=== PATIENT | female | born 1965 | race Caucasian/White ===

== ENCOUNTER 2020-01-27 11:07 | Outpatient (CLI) | payer OTHER, SELFPAY | END 2020-01-27 11:08 | disposition home or self-care (01) | LOC: SLEEP 01-28 11:08 | PROVIDERS: PCP Family Medicine; Visit Provider Physician Assistant Medical | DX: R06.83 Snoring (principal); R53.83 Other fatigue | CPT/HCPCS: G0399 ==

== ENCOUNTER 2020-02-21 12:32 | Emergency (ER) | payer OTHER, SELFPAY ==
[2020-02-21 12:49] VITALS: BP 115/72; PULSE 92; RESP 16; TEMP 36.9; O2SAT 95; BMI 40.0
[2020-02-21 13:35] VITALS: BP 128/85; PULSE 94; RESP 18; O2SAT 94
--- NOTE | 2020-02-21 13:41 | XRR_ITS ---
PROCEDURE INFORMATION: Exam: XR Chest, 1 View Exam date and time: 02/21/2020 1:42 PM Age: 54 years old Clinical indication: Cough and fever and shortness of breath; Patient HX: SOB, fever, cough with nausea, vomiting; Additional info: Dyspnea/cough TECHNIQUE: Imaging protocol: XR of the chest Views: 1 view. COMPARISON: CR Chest 1 [place] [id number] 01/17/2019 12:39 AM FINDINGS: Lungs: No focal peripheral lung consolidation, air bronchogram formation, or silhouette sign. Pleural space: No pleural effusion or pneumothorax. Heart/Mediastinum: The cardiac silhouette is not enlarged. The mediastinal contours are normal. Bones/joints: Prior right rotator cuff surgery with resection of the distal clavicle and multiple anchors in the humeral head. XR/XR chest 1V portable [id number] IMPRESSION: No pneumonia.
--- NOTE | 2020-02-21 13:41 | ECG_ITS ---
[facility] Test Date: 2020-02-21 Pat Name: Elizabeth Bernard Department: Room: Gender: Female Health Care Manager: : 1965 Requested By: George Thomas Order Number: [id number] Alonso MD: Nicole Chen M.D. Measurements Intervals [place] Rate: 78 P: 32 AL: 127 QRS: -14 QRSD: 90 T: 57 QT: 349 QTc: 399 Interpretive Statements SINUS RHYTHM Compared to ECG 01/17/2019 05:54:38 No significant changes Electronically Signed On 02-22-2020 17:15:45 CDT by Nicole Chen M.D. [id number]
--- NOTE | 2020-02-21 14:09 | W.ED.URI ---
HPI - URI/Sore Throat General: Chief Complaint: Upper Respiratory Infection Stated Complaint: covid symptoms Time Seen by Provider: 02/21/20 13:32 History of Present Illness: HPI Narrative: 54-year-old female with a history of mild asthma only uses albuterol was exposed to COVID about 9 to 10 days ago at a several people there has since turned positive. 2 to 3 days ago she had a very severe cough to the point cause rib pain, her cough was nonproductive. Her cough is since improved she still having some GI symptoms goes, nausea and severe diarrhea. She has noticed particular worsening of her wheezing or use of albuterol. She has had some fever at home. MD elicited complaint: fever and cough Pertinent past history: asthma Onset (ago): day(s) Consistency: constant and improved Severity: moderate Able to tolerate fluids by mouth: Yes Exacerbating factors: nothing and exertion Relieving factors: nothing Context: sick contacts Associated symptoms: Reports congestion, cough, diarrhea, fever(s), myalgias, nasal congestion, nausea, rhinorrhea and vomiting; Deny abdominal pain, change in voice, chills, chest pain, short of breath, sinus pain, stiffness or sore throat Treatments prior to arrival: none Review of Systems Const: Reports: fever(s); Denies: chills ENMT: Reports: nasal congestion; Denies: sinus pain Card: Denies: chest pain Resp: Reports: non-productive cough; Denies: dyspnea or productive cough GI: Reports: nausea, vomiting and diarrhea; Denies: abdominal pain : Denies: flank pain, difficulty voiding, dysuria, urinary frequency or urinary urgency Skin/Breast: Denies: rash or pruritus [facility] ED PFSH: Medical History (Updated 02/21/20 @ 15:08 by George Arceo DO) Major depressive disorder, recurrent, moderate Surgical History (Updated 02/21/20 @ 14:13 by George Arceo DO) H/O rotator cuff surgery H/O tubal ligation H/O: hysterectomy Physical Exam Const: COMMON NORMALS: no acute distress GENERAL APPEARANCE: cooperative and comfortable ORIENTATION/CONSCIOUSNESS: Yes awake, Yes oriented to person, Yes oriented to place and Yes oriented to time HENMT: COMMON NORMALS: normocephalic, atraumatic, hearing grossly normal bilaterally, external ears normal, EAC's normal, TM's normal bilaterally, Normal nasal mucous membranes and turbinates present, moist oral mucous membranes and oropharynx normal HEAD & SCALP: normocephalic and atraumatic NOSE: Normal nasal mucous membranes and turbinates present EXTERNAL EAR: Yes external ears normal EXTERNAL AUDITORY CANAL: EAC's normal TYMPANIC MEMBRANE: TM's normal bilaterally Eye: COMMON NORMALS: Equal, round and reactive pupils present, EOMs intact bilaterally, conjunctivae normal and no scleral icterus CONJUNCTIVA: Yes conjunctivae normal PUPIL: Yes Equal, round and reactive pupils present Neck/C-Spine: COMMON NORMALS: full ROM, no lymphadenopathy, supple and no JVD Lymph: LYMPHATIC: no lymphadenopathy noted and no lymphedema noted Resp: COMMON NORMALS: normal respiratory effort, No retractions, No use of accessory muscles and clear to auscultation bilaterally AUSCULTATION: clear to auscultation bilaterally Cardio: COMMON NORMALS: no JVD, regular rate, regular rhythm and No murmurs present (Cardio) RATE: regular rate RHYTHM: regular rhythm GI: COMMON NORMALS: Soft to palpation and No hepatosplenomegaly present AUSCULTATION: Yes normoactive bowel sounds PALPATION: Yes Soft to palpation, No Tenderness to palpation present (GI), No Guarding due to palpation present (GI) and Yes No hepatosplenomegaly present Extremity: COMMON NORMALS: normal to inspection, capillary refill normal, no clubbing, cyanosis or edema, no calf tenderness and no pedal edema Neuro: SENSORIUM/ORIENTATION: Yes oriented to person, Yes oriented to place and Yes oriented to time Skin: COMMON NORMALS: no rashes or lesions noted GENERAL SKIN EXAM: no rashes or lesions noted Course Vital Signs: Vital signs: Vital Signs Temperature 98.5 F 02/21/20 12:49 Pulse Rate 78 02/21/20 15:28 Respiratory Rate 18 02/21/20 15:28 Blood Pressure 136/73 02/21/20 15:28 Pulse Oximetry 93 02/21/20 15:28 MDM - URI/Sore Throat MDM Narrative: Medical decision making narrative: Patient is doing well vital signs are normal. I strongly suspect she does have COVID-19. For now we will discharge home and treat at home is a walking well. Use albuterol as needed should continue to quarantine herself until the results are back. If has any worsening difficulty with breathing return immediately to the emergency room Lab Data: Labs: Lab Results 02/21/20 02/21/20 02/21/20 Range/Units 13:39 13:39 14:28 WBC 5.1 (4.0-10.0) 10^3/ uL RBC 4.77 (4.1-5.3) 10^6/u L Hgb 14.2 (11.5-15.3) g/dL Hct 44.8 (37.0-47.0) % MCV 93.9 (81-99) fL MCH 29.8 (28.0-34.0) pg MCHC 31.7 (30.0-36.0) g/dL RDW 13.5 (12.1-15.1) % Plt Count 248 (130-400) 10^3/c mm MPV 10.2 (7.4-10.4) fL Neut % (Auto) 57.9 % Lymph % (Auto) 27.5 % [place] % (Auto) 12.4 % Eos % (Auto) 1.8 % Baso % (Auto) 0.2 % Neut # (Auto) 2.95 (1.8-7.7) 10^3/u L Lymph # (Auto) 1.4 (0.8-4.8) 10^3/u L [place] # (Auto) 0.6 (0.2-0.9) 10^3/u L Eos # (Auto) 0.1 (0.0-0.8) 10^3/u L Baso # (Auto) 0.0 (0.0-0.1) 10^3/u L Nucleated RBC % (a uto) 0 % Nucleated RBCs # 0.0 /100WBC Sodium 138 (136-145) mmol/L Potassium 4.3 (3.5-5.1) mmol/L Chloride 100 (98-107) mmol/L Carbon Dioxide 26 (22-29) mmol/L Anion Gap 16.3 (5-19) BUN 15 (6-20) mg/dL Creatinine 0.8 (0.5-0.9) mg/dL GFR Calculation 74.7 L (90-130) mL/min Glucose 120 H (65-115) mg/dL Calculated Osmolal ity 283 L (285-295) mOsm/k g Calcium 8.8 (8.5-10.5) mg/dL Total Bilirubin 0.2 (0.15-1.2) mg/dL AST 27 (0-32) U/L ALT 44 H (0-33) U/L Alkaline Phosphata se 61 (35-105) IU/L Total Protein 7.3 (6.6-8.7) g/dL Albumin 4.4 (3.5-5.2) g/dL Globulin 2.9 (1.3-4.6) g/dL Urine Color Yellow (Yellow) Urine Appearance Hazy A (CLEAR) Urine pH 5.0 (5-7) Ur Specific [place] y 1.025 (1.005-1.030) Urine Protein Neg (Negative) Urine Glucose (UA) Norm (Normal) Urine Ketones 1+ H (Negative) Urine Blood Neg (Negative) Urine Nitrate Negative (Negative) Urine Bilirubin Neg (NEGATIVE) Urine Urobilinogen Norm (Negative) mg/dL Ur Leukocyte Danae ase 1+ H (Negative) Urine RBC 0-4 H (0-2) /hpf Urine WBC 0-4 H (0-5) /hpf Ur Squamous Epith Cells 5-10 H (0-5) Amorphous Sediment 2+ Urine Bacteria 1+ H (NONE) Urine Mucus Trace Discharge Plan Discharge Patient Disposition: Home Clinical Impression: Suspected COVID-19 virus infection Condition: Stable Prescriptions: No Action aripiprazole [Abilify] 10 mg tablet 10 mg PO DAILY Qty: 30 RF: 3 ezetimibe 10 mg tablet 10 mg PO BEDTIME RF: 0 levocetirizine 5 mg tablet 10 mg PO BEDTIME RF: 0 albuterol sulfate 90 mcg/actuation aero powdr breath act w/sensor 2 inh INHALATION Q4H PRN (Reason: shortness of breath or wheezing) RF: 0 potassium chloride [Klor-Con 10] 10 mEq tablet extended release 10 meq PO DAILY RF: 0 levothyroxine 100 mcg capsule 100 mcg PO DAILY RF: 0 diclofenac sodium 75 mg tablet,delayed release (DR/EC) 75 mg PO BID RF: 0 lisinopril 5 mg tablet 5 mg PO DAILY RF: 0 Zyrtec 10 mg Tablet 10 mg PO BEDTIME RF: 0 Singulair 10 mg Tablet 10 mg PO QPM RF: 0 metformin 500 mg tablet extended release 24 hr 500 mg PO BID RF: 0 Topamax 50 mg Tablet 50 mg PO BID RF: 0 Vitamin B-12 1 tab PO DAILY RF: 0 Vitamin C 1 tab PO DAILY RF: 0 Vitamin D3 1 tab PO DAILY RF: 0 trazodone 100 mg tablet 100 - 200 mg PO BEDTIME PRN (Reason: insomnia) RF: 0 Pristiq 100 mg tablet extended release 24 hr 100 mg PO QAM RF: 0 Discharge Orders: Discharge Order (Routine); Ordered 02/21/20 Ordered By: George Arceo Discharge Diet: Usual diet Discharge Activity: Limit activity as instructed Activity Restrictions/Additional Instructions: Suspect that you do have COVID-19 infection. Testing is pending. Recommend that you remain self quarantined until we call you with the testing results. If you have worsening shortness of breath return to the emergency room Discharge Date/Time: 02/21/20 15:28 Coding Level of Care Code ED Assignment Manager for Kerri Celis Exam Comprehensive
[2020-02-21 14:18] VITALS: BP 96/72; PULSE 85; RESP 19; O2SAT 95
[2020-02-21 14:38] LABS: Basophils % 0.2 %; Eosinophils # 0.1 10^3/uL (0.0-0.8); Eosinophils % 1.8 %; Hematocrit 44.8 % (37.0-47.0); Hemoglobin 14.2 g/dL (11.5-15.3); Lymphocytes # 1.4 10^3/uL (0.8-4.8); Lymphocytes % 27.5 %; Mean Corpuscular HGB Conc 31.7 g/dL (30.0-36.0); Mean Corpuscular Hemoglobin 29.8 pg (28.0-34.0); Mean Corpuscular Volume 93.9 fL (81-99); Mean Platelet Volume 10.2 fL (7.4-10.4); Monocytes # 0.6 10^3/uL (0.2-0.9); Monocytes % 12.4 %; Neutrophils # 2.95 10^3/uL (1.8-7.7); Neutrophils % 57.9 %; Nucleated Red Blood Cells % 0 %; Platelet Count 248 10^3/cmm (130-400); Red Blood Count 4.77 10^6/uL (4.1-5.3); Red Cell Distribution Width 13.5 % (12.1-15.1); White Blood Count 5.1 10^3/uL (4.0-10.0)
[2020-02-21 15:00] LABS: Alanine Aminotransferase 44 U/L (0-33); Albumin Level 4.4 g/dL (3.5-5.2); Alkaline Phosphatase 61 IU/L (35-105); Anion Gap 16.3 (5-19); Aspartate Amino Transferase 27 U/L (0-32); Blood Urea Nitrogen 15 mg/dL (6-20); Calcium 8.8 mg/dL (8.5-10.5); Carbon Dioxide 26 mmol/L (22-29); Chloride 100 mmol/L (98-107); Globulin 2.9 g/dL (1.3-4.6); Glomerular Filtration Rate 74.7 mL/min (90-130); Glucose 120 mg/dL (65-115); Osmolality Calculated 283 mOsm/kg (285-295); Potassium 4.3 mmol/L (3.5-5.1); Sodium 138 mmol/L (136-145); Total Bilirubin 0.2 mg/dL (0.15-1.2); Total Protein 7.3 g/dL (6.6-8.7)
[2020-02-21 15:05] LABS: Add Urine Microscopic? YES; Bilirubin Urine Neg (NEGATIVE); Blood Urine Neg (Negative); Glucose Urine UA Norm (Normal); Ketones Urine 1+ (Negative); Leukocyte Esterase Urine 1+ (Negative); Nitrate Urine Negative (Negative); Protein Urine Neg (Negative); Specific Gravity, Urine 1.025 (1.005-1.030); Urine Appearance Hazy (CLEAR); Urine Color Yellow (Yellow); Urobilinogen Urine Norm (Negative)
[2020-02-21 15:14] LABS: Add Urine Culture? No; Amorphous Sediment Urine 2+; Bacteria Urine 1+; Mucus Urine TRACE; RBC Urine 0-4 /hpf (0-2); WBC Urine 0-4 /hpf (0-5)
[2020-02-21 15:28] VITALS: BP 136/73; PULSE 78; RESP 18; O2SAT 93
[2020-02-24 05:23] LABS: Quest SARS-CoV-2 RNA DETECTED (NOT DETECTED)
--- NOTE | 2020-02-24 09:03 | PC.NURSE ---
Pt notified of positive COVID result.
== END 2020-02-21 15:28 | disposition home or self-care (01) ==
PROVIDERS: Emergency Provider Family Medicine
DX: U07.1 COVID-19 (principal)
CPT/HCPCS: 12345; 71045; 80053; 81001; 85025; 87635; 93005; 99283

== ENCOUNTER → 2020-09-20 10:01 | Outpatient (BNVA) | payer OTHER, SELFPAY | PROVIDERS: Visit Provider Registered Nurse | DX: Z79.899 Other long term (current) drug therapy (principal) | CPT/HCPCS: 36415; 80061; 83036 ==

== ENCOUNTER 2021-06-17 09:16 | Emergency (ER) | payer OTHER, SELFPAY ==
[2021-06-17 09:21] VITALS: BP 129/80; PULSE 61; RESP 15; TEMP 36.7; O2SAT 97; BMI 38.7
--- NOTE | 2021-06-17 09:54 | W.ED.URI ---
HPI - URI/Sore Throat General: Chief Complaint: General Medical Stated Complaint: [place] throat cant breath very well or speak Time Seen by Provider: 06/17/21 09:43 Source: patient Mode of arrival: ambulatory Limitations: no limitations History of Present Illness: HPI Narrative: Patient is a 56-year-old female presents to ED today with complaint of sore throat, painful swallowing, hoarseness, nonproductive cough, some postnasal drainage. She states symptoms of been present over the past 2 to 3 days. She has not been running fevers. She does not complain of chest congestion, chest pain, shortness of breath, or difficulty breathing. She is not complaining of nasal congestion/sinus pain/pressure. No sick contacts. 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 MD elicited complaint: sore throat and other (hoarseness, cough, post nasal drainage) Onset (ago): day(s) Description of mucous: clear Able to tolerate fluids by mouth: Yes Exacerbating factors: swallowing Associated symptoms: Deny abdominal pain, chills, chest pain, diarrhea, ear or mastoid pain, fever(s), headache(s), nasal congestion, nausea, sinus pain or vomiting Review of Systems Const: Denies: fever(s), chills, body aches, fatigue or malaise Eyes: Denies: change in vision, blurry vision or photophobia ENMT: Reports: throat pain, odynophagia, hoarseness and post nasal drip; Denies: uvular edema, enlarged tonsils, swelling of lips/tongue, oral sores, bleeding gums, dental pain, dry mouth, ear or mastoid pain, ear discharge, nasal congestion or sinus pain Card: Denies: chest pain Resp: Reports: non-productive cough; Denies: dyspnea, wheezing, pain on inspiration, hemoptysis or chest congestion GI: Denies: abdominal pain, nausea, vomiting or diarrhea Musc: Denies: neck pain, back pain, extremity pain or joint pain Skin/Breast: Denies: rash Neuro: Denies: headache(s) or dizziness PFS ED PFSH: Medical History (Updated 06/17/21 @ 11:45 by AMELIE Barker) Insomnia Major depressive disorder, recurrent, moderate BENITO on CPAP Psychiatric care Surgical History (Updated 02/21/20 @ 14:13 by George Arceo DO) H/O rotator cuff surgery H/O tubal ligation H/O: hysterectomy Physical Exam Const: COMMON NORMALS: no acute distress, patient oriented x3, no limitations and alert GENERAL APPEARANCE: cooperative NUTRITIONAL APPEARANCE: obese ORIENTATION/CONSCIOUSNESS: Yes awake, Yes oriented to person, Yes oriented to place and Yes oriented to time HENMT: COMMON NORMALS: normocephalic, atraumatic, hearing grossly normal bilaterally, external ears normal, EAC's normal, TM's normal bilaterally, Normal external nose present, Normal nasal mucous membranes and turbinates present, moist oral mucous membranes and gingiva normal HEAD & SCALP: normal to inspection, normocephalic and atraumatic FACE & SINUS: normal facial exam and sinuses nontender NOSE: Normal external nose present and Normal nasal mucous membranes and turbinates present EXTERNAL EAR: Yes external ears normal EXTERNAL AUDITORY CANAL: EAC's normal TYMPANIC MEMBRANE: TM's normal bilaterally MOUTH: Normal oral and palatal mucosa present, lip normal and tongue normal THROAT: tonsils normal, uvula midline and posterior oropharynx abnormal erythema; no uvular edema Eye: COMMON NORMALS: Equal, round and reactive pupils present and EOMs intact bilaterally GENERAL EYE: appearance normal, both eyes and all related structures PUPIL: Yes Equal, round and reactive pupils present Neck/C-Spine: COMMON NORMALS: full ROM and no lymphadenopathy Resp: COMMON NORMALS: normal respiratory effort and clear to auscultation bilaterally AUSCULTATION: clear to auscultation bilaterally Cardio: COMMON NORMALS: regular rate and regular rhythm RATE: regular rate RHYTHM: regular rhythm Neuro: COMMON NORMALS: patient oriented x3 SENSORIUM/ORIENTATION: Yes alert, Yes oriented to person, Yes oriented to place and Yes oriented to time Skin: COMMON NORMALS: no rashes or lesions noted GENERAL SKIN EXAM: no rashes or lesions noted Course Vital Signs: Vital signs: Vital Signs Temperature 98.1 F 06/17/21 09:21 Pulse Rate 61 06/17/21 09:21 Respiratory Rate 15 06/17/21 09:21 Blood Pressure 129/80 06/17/21 09:21 Pulse Oximetry 97 06/17/21 09:21 MDM - URI/Sore Throat MDM Narrative: Medical decision making narrative: Patient appears in no acute distress. Her rapid strep is negative. PCR COVID pending. Return to ED precautions given regarding inability to swallow or control secretions, or difficulty breathing. Lab Data: Attestation: I reviewed the patient's lab results. Labs: Lab Results 06/17/21 10:54 Group A Strep Rapi d Negative (Negative) Discharge Plan Discharge Patient Disposition: Home Clinical Impression: Acute viral laryngitis Condition: Stable Prescriptions: No Action ezetimibe 10 mg tablet 10 mg PO BEDTIME RF: 0 levocetirizine 5 mg tablet 10 mg PO BEDTIME RF: 0 albuterol sulfate 90 mcg/actuation aero powdr breath act w/sensor 2 inh INHALATION Q4H PRN (Reason: shortness of breath or wheezing) RF: 0 aripiprazole 15 mg tablet 15 mg PO DAILY Qty: 30 RF: 3 Pristiq 100 mg tablet extended release 24 hr 100 mg PO QAM Qty: 30 RF: 3 trazodone 100 mg tablet 100 - 200 mg PO BEDTIME PRN (Reason: insomnia) Qty: 60 RF: 3 potassium chloride [Klor-Con 10] 10 mEq tablet extended release 10 meq PO DAILY RF: 0 levothyroxine 100 mcg capsule 100 mcg PO DAILY RF: 0 diclofenac sodium 75 mg tablet,delayed release (DR/EC) 75 mg PO BID RF: 0 lisinopril 5 mg tablet 5 mg PO DAILY RF: 0 Zyrtec 10 mg Tablet 10 mg PO BEDTIME RF: 0 Singulair 10 mg Tablet 10 mg PO QPM RF: 0 metformin 500 mg tablet extended release 24 hr 500 mg PO BID RF: 0 Topamax 50 mg Tablet 50 mg PO BID RF: 0 Vitamin B-12 1 tab PO DAILY RF: 0 Vitamin C 1 tab PO DAILY RF: 0 Vitamin D3 1 tab PO DAILY RF: 0 Discharge Orders: Discharge ED (Routine); Ordered 06/17/21 Ordered By: Karen Larry Patient Instructions: Acute Laryngitis - Adult Coding Level of Care Code ED Combination Machine Tool Setter for Kerri Fwd Exam Detailed
[2021-06-17 11:22] LABS: Rapid Strep A Test Negative (Negative)
[2021-06-17 13:09] LABS: Adenovirus Not Detected (NOT DETECT); Chlamydia Pneumoniae Not Detected (NOT DETECT); Coronavirus 229E,HKU1,NL63,OC4 Not Detected (NOT DETECT); Human Metapneumovirus Not Detected (NOT DETECT); Human Rhinovirus/Enterovirus Not Detected (NOT DETECT); Influenza A Not Detected (NOT DETECT); Influenza A H1 Not Detected (NOT DETECT); Influenza A H1-2009 Not Detected (NOT DETECT); Influenza A H3 Not Detected (NOT DETECT); Influenza B Not Detected (NOT DETECT); Mycoplasma Pneumoniae Not Detected (NOT DETECT); Parainfluenza Virus Type 1 Not Detected (NOT DETECT); Parainfluenza Virus Type 2 Not Detected (NOT DETECT); Parainfluenza Virus Type 3 Not Detected (NOT DETECT); Parainfluenza Virus Type 4 Not Detected (NOT DETECT); Respiratory Syncytial Virus A Not Detected (NOT DETECT); Respiratory Syncytial Virus B Not Detected (NOT DETECT); SARS-COV-2 Not Detected (NOT DETECT)
== END 2021-06-17 12:02 | disposition home or self-care (01) ==
PROVIDERS: Emergency Provider Physician Assistant
DX: J04.0 Acute laryngitis (principal); Z20.822 Contact with and (suspected) exposure to COVID-19
CPT/HCPCS: 87081; 87635; 87880; 99282

== ENCOUNTER → 2021-08-15 10:38 | Outpatient (BNVA) | payer OTHER, SELFPAY | PROVIDERS: Visit Provider Registered Nurse | DX: Z79.899 Other long term (current) drug therapy (principal) | CPT/HCPCS: 80053; 80061; 83036; 84443; 85025 ==

== ENCOUNTER → 2022-08-21 09:58 | Outpatient (BNVA) | payer OTHER, SELFPAY | PROVIDERS: PCP Physician Assistant; Visit Provider Registered Nurse | DX: Z79.899 Other long term (current) drug therapy (principal) | CPT/HCPCS: 80053; 80061; 82306; 82607; 83036; 84443; 85025 ==

== ENCOUNTER 2022-12-01 17:18 | Emergency (ER) | payer OTHER, SELFPAY ==
[2022-12-01 17:19] VITALS: BP 128/71; PULSE 68; RESP 18; TEMP 36.7; O2SAT 97; BMI 41.5
--- NOTE | 2022-12-01 17:52 | ED_ITS ---
HPI - Female Genitourinary General: Chief complaint: Vaginal Bleeding Stated complaint: vaginal bleeding Time Seen by Provider: 12/01/22 17:19 Source: patient Mode of arrival: ambulatory Limitations: no limitations History of Present Illness: Patient is a 57-year-old female presents to ED today for concerns of vaginal bleeding. She states earlier today while at work she went to the bathroom to urinate and noticed some dysuria as well as some blood in her underwear and on the toilet paper when she wiped. Patient states she is concerned as she is status post total hysterectomy several years ago. She states she does have a history of gynecological cancers that run in her family. MD elicited complaint: other (vaginal bleeding) Pertinent past history: hysterectomy Onset (ago): hour(s) Severity: mild Vaginal discharge: none Vaginal bleeding: scant Urinary symptoms: Dysuria Exacerbating factors: none Relieving factors: none Associated symptoms: Reports no associated symptoms; Deny abdominal pain Treatment prior to arrival: none Sexual activity: No (reports she has not had intercourse in over 6 years) Patient : No Review of Systems Const: Denies: fever(s), chills, body aches, fatigue or malaise GI: Denies: abdominal pain : Reports: dysuria and vaginal bleeding; Denies: flank pain, difficulty voiding, urinary frequency, urinary urgency, urinary hesitancy, dribbling or pelvic pain Musc: Denies: back pain PFSH ED PFSH: Medical History Anticipatory grief Insomnia Major depressive disorder, recurrent, moderate BENITO on CPAP Psychiatric care Surgical History H/O rotator cuff surgery H/O tubal ligation H/O: hysterectomy Social History Smoking and tobacco status: never smoked Physical Exam Const: COMMON NORMALS: no acute distress, patient oriented x3, no limitations, healthy appearing, alert and well nourished GI: COMMON NORMALS: Normal to inspection, nondistended, normoactive bowel sounds present, Soft to palpation and non-tender PALPATION: Yes Soft to palpation : COMMON NORMALS: Yes no CVA tenderness BLADDER/KIDNEY EXAM: Yes no CVA tenderness EXTERNAL FEMALE EXAM: Yes normal appearance of the urethra OTHER: patient does have a small hemorrhagic appearing lesion at 5 o'clock near vaginal introitus; she does not tolerate speculum exam very well so exam is limited however she does appear to have some concerning skin abnormalities to vaginal cuff Back/Pelvis: COMMON NORMALS: no CVA tenderness Neuro: COMMON NORMALS: patient oriented x3 SENSORIUM/ORIENTATION: Yes alert Course Vital Signs: Vital signs: Vital Signs Temperature 98.0 F 12/01/22 19:32 Pulse Rate 68 12/01/22 19:32 Respiratory Rate 14 12/01/22 19:32 Blood Pressure 128/71 12/01/22 19:32 Pulse Oximetry 97 12/01/22 19:32 Oxygen Delivery Me thod Room Air 12/01/22 17:19 MDM - Female Medical Decision Making Cath UA obtained and clear. Vital signs are stable. Blood work is unremarkable. At this time patient needs follow-up with gynecology for further evaluation of her vaginal bleeding status post hysterectomy and evaluation for findings on today's pelvic exam. Case management referral placed. Return to ED precautions given in regards to worsening vaginal bleeding. Lab Data 12/01/22 18:15 12/01/22 18:15 Laboratory Results WBC 8.1 10^3/uL (4.0-10.0) 12/01/22 18:15 RBC 4.24 10^6/uL (4.1-5.3) 12/01/22 18:15 Hgb 12.3 g/dL (11.5-15.3) 12/01/22 18:15 Hct 38.8 % (37.0-47.0) 12/01/22 18:15 MCV 91.5 fl (81-99) 12/01/22 18:15 MCH 29.0 pg (28.0-34.0) 12/01/22 18:15 MCHC 31.7 g/dL (30.0-36.0) 12/01/22 18:15 RDW 13.3 % (12.1-15.1) 12/01/22 18:15 Plt Count 288 10^3/cmm (130-400) 12/01/22 18:15 MPV 9.6 fL (7.4-10.4) 12/01/22 18:15 Neut % (Auto) 50.0 % 12/01/22 18:15 Lymph % (Auto) 38.1 % 12/01/22 18:15 [place] % (Auto) 7.9 % 12/01/22 18:15 Eos % (Auto) 3.1 % 12/01/22 18:15 Baso % (Auto) 0.7 % 12/01/22 18:15 Neut # (Auto) 4.06 10^3/uL (1.8-7.7) 12/01/22 18:15 Lymph # (Auto) 3.1 10^3/uL (0.8-4.8) 12/01/22 18:15 [place] # (Auto) 0.6 10^3/uL (0.2-0.9) 12/01/22 18:15 Eos # (Auto) 0.3 10^3/uL (0.0-0.8) 12/01/22 18:15 Baso # (Auto) 0.1 10^3/uL (0.0-0.1) 12/01/22 18:15 Nucleated RBC % (auto) 0 % 12/01/22 18:15 Nucleated RBCs # 0.0 /100WBC 12/01/22 18:15 Sodium 140 mmol/L (136-145) 12/01/22 18:15 Potassium 4.1 mmol/L (3.5-5.1) 12/01/22 18:15 Chloride 101 mmol/L (98-107) 12/01/22 18:15 Carbon Dioxide 27 mmol/L (22-29) 12/01/22 18:15 Anion Gap 16.1 (5-19) 12/01/22 18:15 BUN 13 mg/dL (6-20) 12/01/22 18:15 Creatinine 0.7 mg/dL (0.5-0.9) 12/01/22 18:15 GFR Calculation 86.2 mL/min (90-130) L 12/01/22 18:15 Glucose 85 mg/dL (65-115) 12/01/22 18:15 Calculated Osmolality 289 mOsm/kg (285-295) 12/01/22 18:15 Calcium 8.6 mg/dL (8.5-10.5) 12/01/22 18:15 Total Bilirubin 0.2 mg/dL (0.15-1.2) 12/01/22 18:15 AST 17 U/L (0-32) 12/01/22 18:15 ALT 26 U/L (0-33) 12/01/22 18:15 Alkaline Phosphatase 69 U/L (35-105) 12/01/22 18:15 Total Protein 6.7 g/dL (6.6-8.7) 12/01/22 18:15 Albumin 4.4 g/dL (3.5-5.2) 12/01/22 18:15 Globulin 2.3 g/dL (1.3-4.6) 12/01/22 18:15 Urine Color Colorless (Yellow) 12/01/22 17:45 Urine Appearance Clear (CLEAR) 12/01/22 17:45 Urine pH 6 (5-7) 12/01/22 17:45 Ur Specific [place] 1.010 (1.005-1.030) 12/01/22 17:45 Urine Protein Neg (Negative) 12/01/22 17:45 Urine Glucose (UA) Norm (Normal) 12/01/22 17:45 Urine Ketones Negative (Negative) 12/01/22 17:45 Urine Blood Neg (Negative) 12/01/22 17:45 Urine Nitrate Negative (Negative) 12/01/22 17:45 Urine Bilirubin Neg (Negative) 12/01/22 17:45 Urine Urobilinogen Norm mg/dL (Negative) 12/01/22 17:45 Ur Leukocyte Esterase Negative (Negative) 12/01/22 17:45 Discharge Plan Discharge Patient Disposition: Home Clinical Impression: Abnormal vaginal bleeding, Vaginal lesion Condition: Stable Prescriptions: No Action ezetimibe 10 mg tablet 10 mg PO BEDTIME levocetirizine 5 mg tablet 10 mg PO BEDTIME Rx Instructions: pt states she thinks she is taking with the zyrtec albuterol sulfate 90 mcg/actuation aero powdr breath act w/sensor 2 inh INHALATION Q4H PRN (Reason: shortness of breath or wheezing) potassium chloride [Klor-Con 10] 10 mEq tablet extended release 10 meq PO DAILY levothyroxine 100 mcg capsule 100 mcg PO DAILY diclofenac sodium 75 mg tablet,delayed release (DR/EC) 75 mg PO BID Rx Instructions: pt states she is only taking 75mg po daily lisinopril 5 mg tablet 5 mg PO DAILY [id number] [Bromfed DM] 2-30-10 mg/5 mL syrup 7.5 ml PO Q6H PRN (Reason: cold symptoms) Qty: 160 0RF desvenlafaxine succinate [Pristiq] 100 mg tablet extended release 24 hr 100 mg PO QAM Qty: 30 3RF doxepin 25 mg capsule 25 - 50 mg PO .at bedtime Qty: 60 2RF [place] 45-105 mg tablet,IR,delayed rel,biphasic 1 tab PO BID Qty: 60 0RF hydrocodone-acetaminophen 5-325 mg tablet 1 tab PO Q4H PRN (Reason: pain) 7 Days Qty: 28 0RF ibuprofen 600 mg tablet 600 mg PO Q8H PRN (Reason: pain) Qty: 30 0RF prednisone 50 mg tablet 50 mg PO DAILY hydroxyzine HCl 25 mg tablet See Rx Instructions .ROUTE .COMPLEX Qty: 60 2RF Dose Instruction: TAKE 2 TABLETS BY MOUTH AT BEDTIME NEEDED FOR ITCHING, ANXIETY OR INSOMNIA Rx Instructions: TAKE 2 TABLETS BY MOUTH AT BEDTIME NEEDED FOR ITCHING, ANXIETY OR INSOMNIA aripiprazole 15 mg tablet 15 mg PO DAILY Qty: 30 3RF Zyrtec 10 mg Tablet 10 mg PO BEDTIME metformin 500 mg tablet extended release 24 hr 500 mg PO BID Vitamin B-12 1 tab PO DAILY Vitamin C 1 tab PO DAILY Vitamin D3 1 tab PO DAILY Discharge Orders: Discharge ED (Routine); Ordered 12/01/22 Ordered By: Karen Larry Referrals: Dimple Palumbo PA-C [Primary Care Provider] - Activity Restrictions/Additional Instructions: As we have discussed I have placed a referral with case management to get you set up with a gynecology appointment for further evaluation of your vaginal bleeding as this is concerning given your hysterectomy status. They should reach out to you early this week to set you up with this appointment. Coding Level of Care Code ED Automated Access Systems Technician for Kerri Celis
[2022-12-01 17:56] LABS: Add Urine Microscopic? NO; Charge for UA Resulting for Rev
[2022-12-01 18:00] VITALS: RESP 14
[2022-12-01 18:10] LABS: Urine Appearance Clear (CLEAR); Urine Color Colorless (Yellow)
[2022-12-01 18:11] LABS: Bilirubin Urine Neg (Negative); Blood Urine Neg (Negative); Glucose Urine UA Norm (Normal); Ketones Urine Negative (Negative); Leukocyte Esterase Urine Negative (Negative); Nitrate Urine Negative (Negative); Protein Urine Neg (Negative); Urobilinogen Urine Norm (Negative); pH Urine 6 (5-7)
[2022-12-01 18:22] LABS: Basophils # 0.1 10^3/uL (0.0-0.1); Basophils % 0.7 %; Eosinophils # 0.3 10^3/uL (0.0-0.8); Eosinophils % 3.1 %; Hematocrit 38.8 % (37.0-47.0); Hemoglobin 12.3 g/dL (11.5-15.3); Lymphocytes # 3.1 10^3/uL (0.8-4.8); Lymphocytes % 38.1 %; Mean Corpuscular HGB Conc 31.7 g/dL (30.0-36.0); Mean Corpuscular Volume 91.5 fl (81-99); Mean Platelet Volume 9.6 fL (7.4-10.4); Monocytes # 0.6 10^3/uL (0.2-0.9); Monocytes % 7.9 %; Neutrophils # 4.06 10^3/uL (1.8-7.7); Nucleated Red Blood Cells % 0 %; Platelet Count 288 10^3/cmm (130-400); Red Blood Count 4.24 10^6/uL (4.1-5.3); Red Cell Distribution Width 13.3 % (12.1-15.1); White Blood Count 8.1 10^3/uL (4.0-10.0)
[2022-12-01 18:43] LABS: Alanine Aminotransferase 26 U/L (0-33); Albumin Level 4.4 g/dL (3.5-5.2); Alkaline Phosphatase 69 U/L (35-105); Anion Gap 16.1 (5-19); Aspartate Amino Transferase 17 U/L (0-32); Blood Urea Nitrogen 13 mg/dL (6-20); Calcium 8.6 mg/dL (8.5-10.5); Carbon Dioxide 27 mmol/L (22-29); Chloride 101 mmol/L (98-107); Creatinine Clr Calc Pharmacy 111.3671; Globulin 2.3 g/dL (1.3-4.6); Glomerular Filtration Rate 86.2 mL/min (90-130); Glucose 85 mg/dL (65-115); Osmolality Calculated 289 mOsm/kg (285-295); Potassium 4.1 mmol/L (3.5-5.1); Sodium 140 mmol/L (136-145); Total Bilirubin 0.2 mg/dL (0.15-1.2); Total Protein 6.7 g/dL (6.6-8.7)
[2022-12-01 19:32] VITALS: BP 128/71; PULSE 68; RESP 14; TEMP 36.7; O2SAT 97
--- NOTE | 2022-12-02 05:44 | DCPLANNER ---
Addendum entered by Lilliana García 12/06/22 13:28: Patient had a follow up appointment scheduled with Dr. Taylor at [facility] - patient did attend appointment. Original Note: manager of pmo had message to schedule a follow up appointment for patient with [employer]. manager of pmo sent patients information to the front office staff at [facility]. Patients information will be printed and reviewed. Clinic will call patient with appointment information.
== END 2022-12-01 19:33 | disposition home or self-care (01) ==
PROVIDERS: Emergency Provider Physician Assistant; PCP Physician Assistant
DX: N93.9 Abnormal uterine and vaginal bleeding, unspecified (principal); N89.8 Other specified noninflammatory disorders of vagina; Z79.84 Long term (current) use of oral hypoglycemic drugs
CPT/HCPCS: 36415; 80053; 81003; 85025; 99283; E0352

== ENCOUNTER → 2022-12-04 11:00 | Outpatient (BNVA) | payer OTHER, SELFPAY | PROVIDERS: PCP Physician Assistant; Visit Provider Obstetrics & Gynecology | DX: N93.9 Abnormal uterine and vaginal bleeding, unspecified (principal) | CPT/HCPCS: 87624 ==

== ENCOUNTER 2022-12-26 12:56 | Day surgery (SDC) | payer OTHER, SELFPAY ==
[2022-12-25 10:21] VITALS: BMI 41.5
[2022-12-26] VITALS (7 sets, daily range): BP systolic 120–143; BP diastolic 56–85; PULSE 59–73; RESP 15–17; TEMP 36.4–36.8; O2SAT 95–100
--- NOTE | 2022-12-26 13:51 | P.ANESASSM_ITS ---
Pre-Anesthetic Assessment Height/Weight: Height 1.65 m Weight 113.398 kg Preop Diagnosis: vaginal bleeding Operation Date: 12/26/22 15:05 Proposed Procedures p Pelvic exam under anesthesia 06211, Possible polypectomy 12794, N93.9(Not Applicable) - Reza Taylor MD s Poss Poylpectomy(Not Applicable) - Reza Taylor MD Familial anesthetic complications: None Was Beta Salbador taken within 24 hours: N/A Was Clonidine taken within 24 hours: N/A Last intake: > 8hrs Social No alcohol and No tobacco Exam alert, oriented x 3, clear to auscultation bilaterally and regular rate & rhythm Airway Mallampati: Class II Dentition: chipped Pulmonary Asthma CV/HEM Hypertension Metabolic Diabetes Mellitus, Morbid Obesity and Thyroid Disease Anesthetic Plan ASA status: 3 Anesthesia: MAC Risk of > 500 ml blood loss (7ml/kg in children): No Medications/Allergies Home Medications Medication Instructions Recorded Confirmed Last Taken Type levothyroxine 100 mcg capsule 100 mcg PO DAILY 09/02/19 12/25/22 12/25/22 History lisinopril 5 mg tablet 5 mg PO DAILY 09/02/19 12/25/22 12/25/22 History albuterol sulfate 90 mcg/actuation 2 inh inhalation Q4H PRN shortness 01/08/20 12/25/22 Unknown History breath activated powder of breath or wheezing inhaler,sensor ezetimibe 10 mg tablet 10 mg PO BEDTIME 01/08/20 12/25/22 12/25/22 History cetirizine 10 mg tablet (Zyrtec) 10 mg PO BEDTIME 02/21/20 12/25/22 12/25/22 History metformin 500 mg tablet,extended 500 mg PO BID 02/21/20 12/25/22 12/25/22 History release 24 hr ibuprofen 600 mg tablet 600 mg PO Q8H PRN pain #30 tabs 05/13/22 12/25/22 Unknown Rx doxepin 25 mg capsule 25 - 50 mg PO .at bedtime #60 caps 05/28/22 12/25/22 12/25/22 Rx aripiprazole 15 mg tablet 15 mg PO DAILY #30 tabs 11/12/22 12/25/22 12/25/22 Rx dextromethorphan IR 45 1 tab PO BID #60 tabs 11/20/22 12/25/22 12/25/22 Rx mg-bupropion ER 105 mg biphasic tablet (Auvelity) hydroxyzine HCl 25 mg tablet 50 mg PO BEDTIME PRN Anxiety 12/25/22 12/26/22 12/25/22 History magnesium 250 mg tablet 250 mg PO DAILY 12/25/22 12/25/22 12/25/22 History multivitamin 1 tab PO DAILY 12/25/22 12/25/22 12/25/22 History Allergies Allergy/AdvReac Type Severity Reaction Status Date / Time carisoprodol [From Soma] Allergy Unknown unknown Verified 12/26/22 13:41 rofecoxib [From Vioxx] Allergy Unknown UNKNOWN Verified 12/26/22 13:41 Krswuvj-GFL-GeV Reductase Allergy Unknown unknown Verified 12/26/22 13:41 Inhibitor [Ciwbbaa-Zde-Nrs Reductase Inhibitor] sumatriptan [From Imitrex] Allergy Unknown unknown Verified 12/26/22 13:41 [facility] Anesthesia Medical History (Updated 12/09/22 @ 22:49 by Reza Taylor MD) Anticipatory grief Insomnia Major depressive disorder, recurrent, moderate BENITO on CPAP Psychiatric care Surgical History H/O rotator cuff surgery H/O tubal ligation H/O: hysterectomy Family History (Updated 12/04/22 @ 08:28 by Ramya Guillen LPN) Sister Ovarian cancer Diabetes Stroke TIA Brother Diabetes Hypertension Mother Diabetes Father Stroke Grandmother Stroke Paternal Other Stomach cancer Denies family history of Colon cancer Heart disease Hyperlipidemia Breast cancer Uterine cancer Thyroid condition Data Anesthesia Cardiac Studies: No Data to Display
[2022-12-26] MEDS: sodium chloride 0.9% 1,000 ML 30 ML IV (13:57)
[2022-12-26] MEDS: scopolamine 1.5 Patch 1 PATCH TRANSDERMA (13:58)
--- NOTE | 2022-12-26 14:00 | P.HP_ITS ---
Providers/Chief Complaint Admitting Physician: Reaz Taylor MD Primary SURGICAL MANAGER: Reza Taylor MD Primary Care Provider: Dimple Palumbo Chief Complaint: [id number] N93.9 HPI SURGICAL MANAGER History of Present Illness 57 y.o. h/o hysterectomy with BSO 1999 in [place] for ovarian cysts noted vaginal bleeding with blood on toilet paper December 01, 2022 bleeding then stopped went to ER no further bleeding unable to tolerate pelvic exam in office now scheduled for pelvic exam under anesthesia, possible vaginal biopsy Medications/Allergies Home Medications Medication Instructions Recorded Confirmed Last Taken Type levothyroxine 100 mcg capsule 100 mcg PO DAILY 09/02/19 01/01/23 12/25/22 History lisinopril 5 mg tablet 5 mg PO DAILY 09/02/19 01/01/23 12/25/22 History albuterol sulfate 90 mcg/actuation 2 inh inhalation Q4H PRN shortness 01/08/20 01/01/23 Unknown History breath activated powder of breath or wheezing inhaler,sensor ezetimibe 10 mg tablet 10 mg PO BEDTIME 01/08/20 01/01/23 12/25/22 History cetirizine 10 mg tablet (Zyrtec) 10 mg PO BEDTIME 02/21/20 01/01/23 12/25/22 History metformin 500 mg tablet,extended 500 mg PO BID 02/21/20 01/01/23 12/25/22 History release 24 hr ibuprofen 600 mg tablet 600 mg PO Q8H PRN pain #30 tabs 05/13/22 01/01/23 Unknown Rx aripiprazole 15 mg tablet 15 mg PO DAILY #30 tabs 11/12/22 01/10/23 12/25/22 Rx dextromethorphan IR 45 1 tab PO BID #60 tabs 11/20/22 01/01/23 12/25/22 Rx mg-bupropion ER 105 mg biphasic tablet (Auvelity) hydroxyzine HCl 25 mg tablet 50 mg PO BEDTIME PRN Anxiety 12/25/22 01/01/23 12/25/22 History magnesium 250 mg tablet 250 mg PO DAILY 12/25/22 01/01/23 12/25/22 History multivitamin 1 tab PO DAILY 12/25/22 01/01/23 12/25/22 History doxepin 25 mg capsule See Rx Instructions .Route 01/08/23 Unknown Rx .COMPLEX #60 caps Allergies Allergy/AdvReac Type Severity Reaction Status Date / Time carisoprodol [From Soma] Allergy Unknown unknown Verified 01/01/23 08:11 rofecoxib [From Vioxx] Allergy Unknown UNKNOWN Verified 01/01/23 08:11 Lgiycxd-VXG-EsN Reductase Allergy Unknown unknown Verified 01/01/23 08:11 Inhibitor [Xxvlsku-Mcm-Zqv Reductase Inhibitor] sumatriptan [From Imitrex] Allergy Unknown unknown Verified 01/01/23 08:11 PFSH SURGICAL MANAGER PFSH: Medical History (Updated 01/05/23 @ 18:11 by Reza Taylor MD) Anticipatory grief Insomnia Major depressive disorder, recurrent, moderate BENITO on CPAP Psychiatric care Surgical History H/O rotator cuff surgery H/O tubal ligation H/O: hysterectomy Family History (Updated 12/04/22 @ 08:28 by Ramya Guillen LPN) Sister Ovarian cancer Diabetes Stroke TIA Brother Diabetes Hypertension Mother Diabetes Father Stroke Grandmother Stroke Paternal Other Stomach cancer Denies family history of Colon cancer Heart disease Hyperlipidemia Breast cancer Uterine cancer Thyroid condition History History History 2 Term 2 0 Miscarriages/Ectopic 0 Living Children 2 Vitals/I&O/Wt Last Vital Signs Temp 98 F 12/26/22 15:51 Pulse 65 12/26/22 16:06 Resp 15 12/26/22 16:06 BP 131/73 12/26/22 16:06 Pulse Ox 96 12/26/22 16:06 O2 Del Method Room Air 12/26/22 16:06 O2 Flow Rate 6 12/26/22 15:32 Physical Exam Narrative: Weight ? 255? lbs;? 5?5? Comfortable HEENT:? normal Lungs:? clear Cor:? RRR Abd:? soft, nontender A&P Assessment and plan (1) Vaginal bleeding: h/o hysterectomy, BSO?? 2000 vaginal bleeding unable to do adequate pelvic exam due to pain plan pelvic exam under anesthesia, possible polypectomy Attestations Medical Necessity Statement*: patient with h/o vaginal bleeding, now for pelvic exam under anesthesia Coding Level of Care Code Acute Code for Chg Fwd Diagnoses Vaginal bleeding N93.9 Time Spent (min) 30
--- NOTE | 2022-12-26 14:39 | W.PM.OPSUD ---
Surgery/Procedure H&P Update DATE OF PROCEDURE: December 26, 2022 DATE H&P PERFORMED: 12/25/22 H&P UPDATE INFORMATION: I have reviewed H&P completed within last 30 days, I have examined patient prior to procedure and No changes to prior documentation PREOP DIAGNOSIS: vaginal bleeding PLANNED PROCEDURE: Operation Date: 12/26/22 15:05 Proposed Procedures p Pelvic exam under anesthesia 92538, Possible polypectomy 33246, N93.9(Not Applicable) - Reza Taylor MD s Poss Poylpectomy(Not Applicable) - Reza Taylor MD
--- NOTE | 2022-12-27 02:09 | PM.OP ---
Operative Report Date of procedure: December 27, 2022 Pre-op diagnosis: Preop Diagnosis vaginal bleeding Post-op diagnosis: same Post-op findings: normal vulva and vagina Small 1 cm benign appearing lesion at vaginal vault Procedure done: pelvic exam under anesthesia Biopsy of vaginal lesion Specimens removed/disposition: vaginal lesion Surgeon: Reza Taylor MD Anesthesia: MAC Estimated blood loss (mL): 0 Complications: none Procedure: Informed consent signed Patient was taken to the OR, placed supine on the table. Anesthesia was induced. The patient was placed in dorsolithotomy position. The perineum was prepped and draped in usual fashion. A speculum was placed into the vagina and the vaginal mucosa was examined. There was one small benign-appearing erythematous lesion at the vault. There were no other lesion. The lesion at the vault, measuring 1 cm, was biopsied, specimen was sent to pathology. No bleeding was seen. All instruments were then removed. The patient was placed supine, awakened, and taken to the recovery room. Postoperative condition: stable EBL: none Sponge and instruments counts correct x two
[2022-12-27 06:29] LABS: Glucose Point of Care 102 mg/dL (70-110)
== END 2022-12-26 16:15 | disposition home or self-care (01) ==
PROVIDERS: PCP Physician Assistant; Visit Provider Obstetrics & Gynecology
PROC: 8E0UXY7 Examination of Female Reproductive System (ICD-10-PCS; CPT 57410; principal; 2022-12-26 14:55)
DX: N93.9 Abnormal uterine and vaginal bleeding, unspecified (principal); E11.9 Type 2 diabetes mellitus without complications; E66.01 Morbid (severe) obesity due to excess calories; Z68.41 Body mass index [BMI] 40.0-44.9, adult; E03.9 Hypothyroidism, unspecified; Z79.84 Long term (current) use of oral hypoglycemic drugs
CPT/HCPCS: 57100; 36416; 82962; 88305; J1100; J1885; J2250; J2405; J2704; J3010; J3490; J7030

== ENCOUNTER 2023-04-05 08:44 | Emergency (ER) | payer OTHER, SELFPAY ==
[2023-04-05 08:49] VITALS: BP 159/104; PULSE 109; RESP 22; TEMP 37.2; O2SAT 94; BMI 39.1
--- NOTE | 2023-04-05 09:04 | XRR_ITS ---
PROCEDURE INFORMATION: Exam: XR Chest Exam date and time: 04/05/2023 9:28 AM Age: 58 years old Clinical indication: Cough; Additional info: Cough and congestion TECHNIQUE: Imaging protocol: Radiologic exam of the chest. Views: 2 views. COMPARISON: CR XR chest 1V portable [id number] 02/21/2020 1:51 PM FINDINGS: Lungs: Lungs are clear. Pleural spaces: There is no pleural effusion or pneumothorax. Heart/Mediastinum: Cardiomediastinal contours are unremarkable. Bones/joints: Surgical anchors in the right humeral head consistent with rotator cuff repair. Bones are unremarkable otherwise. XR/XR chest 2V* [id number] IMPRESSION: No acute findings.
--- NOTE | 2023-04-05 09:08 | W.ED.URI ---
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 Patient reports low-grade fever at home reporting no other associated symptoms Associated symptoms: Deny abdominal pain, chills, chest pain, fever(s), headache(s), nausea or vomiting Review of Systems General: Reports: 10 or more systems reviewed and unremarkable except in HPI and below Const: Denies: fever(s), chills, fatigue or malaise Eyes: Denies: change in vision or blurry vision ENMT: Reports: throat pain, odynophagia and hoarseness Card: Denies: chest pain or palpitations Resp: Reports: productive cough; Denies: dyspnea GI: Denies: abdominal pain, nausea or vomiting : Denies: flank pain Musc: Denies: extremity pain or extremity swelling Skin/Breast: Denies: rash or pruritus Neuro: Denies: headache(s) Psych: Denies: anxiety or depression Delroy/Lymph: Denies: easy bleeding All/Imm: Denies: urticaria, throat swelling or facial swelling PFSH ED PFSH: Medical History (Updated 04/05/23 @ 12:13 by George De) Anticipatory grief Insomnia Major depressive disorder, recurrent, moderate BENITO on CPAP Psychiatric care Surgical History H/O rotator cuff surgery H/O tubal ligation H/O: hysterectomy Family History Sister Ovarian cancer Diabetes Stroke TIA Brother Diabetes Hypertension Mother Diabetes Father Stroke Grandmother Stroke Paternal Other Stomach cancer Denies family history of Colon cancer Heart disease Hyperlipidemia Breast cancer Uterine cancer Thyroid disease Physical Exam Const: COMMON NORMALS: no acute distress, patient oriented x3 and healthy appearing HENMT: COMMON NORMALS: normocephalic and atraumatic HEAD & SCALP: normocephalic and atraumatic Eye: COMMON NORMALS: Equal, round and reactive pupils present and EOMs intact bilaterally PUPIL: Yes Equal, round and reactive pupils present Neck/C-Spine: COMMON NORMALS: full ROM, supple and no JVD; negative for no lymphadenopathy (Mild bilateral anterior cervical adenopathy appreciated ) Lymph: LYMPHATIC: no lymphadenopathy noted Chest: COMMONS NORMALS: normal inspection of the chest and normal palpation of entire chest wall Resp: COMMON NORMALS: normal respiratory effort, No retractions and clear to auscultation bilaterally EFFORT & INSPECTION: Yes able to speak in complete sentences and Yes symmetric chest movement AUSCULTATION: clear to auscultation bilaterally Cardio: COMMON NORMALS: no JVD, regular rate and regular rhythm RATE: regular rate RHYTHM: regular rhythm GI: COMMON NORMALS: Normal to inspection, nondistended, normoactive bowel sounds present, Soft to palpation and non-tender INSPECTION: Yes normal to inspection PALPATION: Yes Soft to palpation : COMMON NORMALS: Yes no CVA tenderness BLADDER/KIDNEY EXAM: Yes no CVA tenderness Back/Pelvis: COMMON NORMALS: no CVA tenderness Extremity: COMMON NORMALS: normal to inspection and full ROM Neuro: COMMON NORMALS: patient oriented x3, CN's II-XII intact bilaterally, moves all extremities and no focal motor deficits Psych: COMMON NORMALS: mental status grossly normal, Normal thought process present, cooperative and normal affect THOUGHT PROCESS: Normal thought process present Skin: COMMON NORMALS: no rashes or lesions noted GENERAL SKIN EXAM: no rashes or lesions noted Course Vital Signs: Vital signs: Vital Signs Temperature 99.0 F 04/05/23 08:49 Pulse Rate 109 H 04/05/23 08:49 Respiratory Rate 22 H 04/05/23 08:49 Blood Pressure 159/104 04/05/23 08:49 Pulse Oximetry 94 04/05/23 08:49 Oxygen Delivery Me thod Room Air 04/05/23 08:49 MDM - URI/Sore Throat Medical Decision Making Due to patient's symptoms and condition and respiratory panel will be obtained with a chest x-ray patient will provided medications for her symptoms we will continue to follow Lab Data Radiology Impressions Chest X-Ray 04/05/23 09:04 IMPRESSION: No acute findings. Laboratory Results Influenza Type A Ag negative (Negative) 04/05/23 11:20 Influenza Type B Ag negative (Negative) 04/05/23 11:20 SARS-CoV-2 Ag (Rapid) positive (Negative) H 04/05/23 11:20 All radiology interpretation(s) finalized by discharge Discharge Plan Discharge Patient Disposition: Home Clinical Impression: COVID-19, Upper respiratory infection Condition: Stable Prescriptions: New Ventolin HFA 90 mcg/actuation HFA aerosol inhaler 1 inh inhalation Q6H PRN (Reason: shortness of breath or wheezing) Qty: 6.7 0RF benzonatate 100 mg capsule 100 mg PO Q6H PRN (Reason: cough) Qty: 14 0RF No Action ezetimibe 10 mg tablet 10 mg PO BEDTIME albuterol sulfate 90 mcg/actuation aero powdr breath act w/sensor 2 inh INHALATION Q4H PRN (Reason: shortness of breath or wheezing) levothyroxine 100 mcg capsule 100 mcg PO QAM lisinopril 5 mg tablet 5 mg PO QAM desvenlafaxine succinate [Pristiq] 100 mg tablet extended release 24 hr 100 mg PO QAM Qty: 30 3RF cetirizine [Zyrtec] 10 mg Tablet 10 mg PO BEDTIME metformin 500 mg tablet extended release 24 hr 500 mg PO BID multivitamin Tablet 1 tab PO QAM magnesium 250 mg Tablet 250 mg PO QAM primidone 50 mg tablet 75 mg PO BEDTIME ondansetron 4 mg tablet,disintegrating 4 mg PO Q8H PRN (Reason: Nausea) doxepin 25 mg capsule 25 - 50 mg PO BEDTIME hydroxyzine HCl 25 mg tablet 50 mg PO BEDTIME PRN (Reason: Itching) aripiprazole 15 mg tablet 15 mg PO QAM Discharge Orders: Discharge ED (Routine); Ordered 04/05/23 Ordered By: George De Referrals: Dimple Palumbo PA-C [Primary Care Provider] - 1-3 days Discharge Diet: Advance as tolerated Discharge Activity: Increase activity as tolerated Patient Instructions: Opioid Safety, Pain Management Activity Restrictions/Additional Instructions: Please further follow-up your primary care doctor in 3 to 5 days as needed, please take medications as prescribed. Please refrain from going to work until April 08 as per the CDC current recommendations for quarantine, please drink lots of fluids and please return the interim if any of your symptoms persist or worse. Coding Level of Care Code ED Manager Security for Kerri Celis
[2023-04-05] MEDS: benzonatate 100 mg Capsule PO (09:42)
[2023-04-05] MEDS: dexamethasone 4 mg Tablet 10 MG PO (09:42)
[2023-04-05 11:49] LABS: Influenza A by IFA negative (Negative); Influenza B by IFA negative (Negative)
[2023-04-05 11:53] LABS: SARS Covid-2 Antigen positive (Negative)
[2023-04-05 12:55] LABS: Adenovirus Not Detected (NOT DETECT); Chlamydia Pneumoniae Not Detected (NOT DETECT); Coronavirus 229E,HKU1,NL63,OC4 Not Detected (NOT DETECT); Human Metapneumovirus Not Detected (NOT DETECT); Human Rhinovirus/Enterovirus Not Detected (NOT DETECT); Influenza A Not Detected (NOT DETECT); Influenza A H1 Not Detected (NOT DETECT); Influenza A H1-2009 Not Detected (NOT DETECT); Influenza A H3 Not Detected (NOT DETECT); Influenza B Not Detected (NOT DETECT); Mycoplasma Pneumoniae Not Detected (NOT DETECT); Parainfluenza Virus Type 1 Not Detected (NOT DETECT); Parainfluenza Virus Type 2 Not Detected (NOT DETECT); Parainfluenza Virus Type 3 Not Detected (NOT DETECT); Parainfluenza Virus Type 4 Not Detected (NOT DETECT); Respiratory Syncytial Virus A Not Detected (NOT DETECT); Respiratory Syncytial Virus B Not Detected (NOT DETECT)
[2023-04-05 13:13] LABS: SARS-COV-2 Detected (NOT DETECT)
== END 2023-04-05 12:25 | disposition home or self-care (01) ==
PROVIDERS: Emergency Provider Emergency Medicine; PCP Physician Assistant
DX: U07.1 COVID-19 (principal); J06.9 Acute upper respiratory infection, unspecified; Z79.84 Long term (current) use of oral hypoglycemic drugs
CPT/HCPCS: 71046; 87426; 87486; 87581; 87633; 87804; 99284; J8540

== ENCOUNTER 2023-06-16 13:49 | Emergency (ER) | payer OTHER, SELFPAY ==
[2023-06-16 13:53] VITALS: BP 176/74; PULSE 78; RESP 16; TEMP 36.7; O2SAT 93; BMI 41.3
--- NOTE | 2023-06-16 15:25 | ECG_ITS ---
[facility] Test Date: 2023-06-16 Pat Name: Elizabeth Bernard Department: Room: Gender: Female Sign Erector: : 1965 Requested By: David Kumar Order Number: [id number] Reading MD: Blily Champagne M.D. Measurements Intervals [place] Rate: 70 P: 0 TN: 131 QRS: -11 QRSD: 90 T: 71 QT: 379 QTc: 411 Interpretive Statements SINUS RHYTHM LOW QRS VOLTAGE IN PRECORDIAL LEADS [QRS DEFLECTION < 1.0 mV IN CHEST LEADS] PATTERN CONSISTENT WITH PULMONARY DISEASE Compared to ECG 02/21/2020 14:12:43 Low QRS voltage now present Electronically Signed On 06-16-2023 16:09:52 SHORE HAND DREDGE OR BARGE by Billy Champagne M.D. [email or web address]
--- NOTE | 2023-06-16 15:25 | XRR_ITS ---
PROCEDURE INFORMATION: Exam: XR Chest Exam date and time: 06/16/2023 3:49 PM Age: 58 years old Clinical indication: Pain; Chest pressure; Additional info: Chest pain TECHNIQUE: Imaging protocol: Radiologic exam of the chest. Views: 1 view. COMPARISON: CR XR chest 2V* [id number] 04/05/2023 9:28 AM FINDINGS: Lungs: Unremarkable. No consolidation. Pleural spaces: Unremarkable. No pleural effusion. No pneumothorax. Heart/Mediastinum: Unremarkable. No cardiomegaly. Bones/joints: Rotator cuff anchors noted in the right humeral head. Visualized osseous structures are intact. XR/XR chest 1V portable [id number] IMPRESSION: No acute findings.
--- NOTE | 2023-06-16 15:36 | ED_ITS ---
HPI - Chest Pain 2 General: Chief Complaint: Chest Pain Stated Complaint: pain in left breast and in left arm Time Seen by Provider: 06/16/23 15:32 Source: patient Mode of arrival: ambulatory History of Present Illness: 58-year-old female who presents emergenc y room complaining of chest pain in the left breast radiating to the left arm's been present for the last 11 days. Movement and palpation worsens it. No associated shortness of breath. No injury or trauma no previous surgeries to that area. Patient is diabetic has no history of coronary artery disease. MD complaint: chest pain Onset (ago): day(s) (11) Timing of current episode: episodic Onset: during rest Pain location: left chest Pain radiation: left arm Quality: sharp Relieving factors: nothing Exacerbating factors: palpation and movement Associated symptoms: Deny abdominal pain, diaphoresis, dyspnea, fever(s), leg edema, nausea, palpitations, sense of impending doom, syncope or vomiting Treatment prior to arrival: none Review of Systems 2 Const: Denies: fever(s), chills or diaphoresis Card: Reports: chest pain; Denies: palpitations or syncope Resp: Denies: dyspnea GI: Denies: abdominal pain, nausea or vomiting : Denies: dysuria, urinary frequency or urinary urgency Musc: Denies: neck pain or back pain Skin/Breast: Denies: rash PFSH ED 2 PFSH: Medical History Anticipatory grief Psychiatric care Insomnia BENITO on CPAP Major depressive disorder, recurrent, moderate Surgical History H/O: hysterectomy H/O tubal ligation H/O rotator cuff surgery Family History Sister Ovarian cancer Diabetes Stroke TIA Brother Diabetes Hypertension Mother Diabetes Father Stroke Grandmother Stroke Paternal Other Stomach cancer Denies family history of Colon cancer Heart disease Hyperlipidemia Breast cancer Uterine cancer Thyroid disease Physical Exam 2 Const: GENERAL APPEARANCE: cooperative and comfortable O RIENTATION/CONSCIOUSNESS: Yes awake, Yes oriented to person, Yes oriented to place and Yes oriented to time HENMT: COMMON NORMALS: normocephalic, atraumatic and hearing grossly normal bilaterally HEAD & SCALP: normocephalic and atraumatic Chest: OTHER: Chest pain reproducible with palpation over the lateral portion of the left breast Resp: COMMON NORMALS: normal respiratory effort, No retractions, No use of accessory muscles and clear to auscultation bilaterally AUSCULTATION: clear to auscultation bilaterally Cardio: COMMON NORMALS: regular rate, regular rhythm and No murmurs present (Cardio) RATE: regular rate RHYTHM: regular rhythm GI: COMMON NORMALS: Soft to palpation and No hepatosplenomegaly present A USCULTATION: Yes normoactive bowel sounds PALPATION: Yes Soft to palpation, No Tenderness to palpation present (GI), No Guarding due to palpation present (GI) and Yes No hepatosplenomegaly present Extremity: COMMON NORMALS: normal to inspection, capillary refill normal, no clubbing, cyanosis or edema, no calf tenderness and no pedal edema Neuro: SENSORIUM/ORIENTATION: Yes oriented to person, Yes oriented to place and Yes oriented to time Skin: COMMON NORMALS: no rashes or lesions noted GENERAL SKIN EXAM: no rashes or lesions noted Course 2 Vital Signs: Vital signs: Vital Signs Temperature 98.1 F 06/16/23 13:53 Pulse Rate 73 06/16/23 16:57 Respiratory Rate 16 06/16/23 16:57 Blood Pressure 113/53 06/16/23 16:57 Pulse Oximetry 94 06/16/23 16:57 Oxygen Delivery Me thod Room Air 06/16/23 13:53 MDM - Chest Pain Medical Decision Making Labs and imaging reviewed. EKG does not show any acute ST changes. Chest x-ray normal. Chest pain worse with palpation patient has had symptoms for 11 days EKG and troponin unremarkable discharge patient home diclofenac follow-up with primary care return if is worsening problems Medical Records I reviewed the patient's medical records. Lab Data I reviewed the patient's lab results. 06/16/23 15:45 06/16/23 15:45 Laboratory Results WBC 7.73 10^3/uL (3.29-11.43) 06/16/23 15:45 RBC 4.48 10^6/uL (3.85-5.65) 06/16/23 15:45 Hgb 13.20 g/dL (11.27-16.99) 06/16/23 15:45 Hct 40.9 % (36-47) 06/16/23 15:45 MCV 91.3 fl (85-98) 06/16/23 15:45 MCH 29.5 pg (27-33) 06/16/23 15:45 MCHC 32.3 g/dL (30-55) 06/16/23 15:45 RDW 13.3 % (12.1-15.1) 06/16/23 15:45 Plt Count 298 10^3/cmm (157-399) 06/16/23 15:45 MPV 9.4 fL (7.4-10.4) 06/16/23 15:45 Neut % (Auto) 53.1 % 06/16/23 15:45 Lymph % (Auto) 33.6 % 06/16/23 15:45 [place] % (Auto) 9.4 % 06/16/23 15:45 Eos % (Auto) 3.0 % 06/16/23 15:45 Baso % (Auto) 0.8 % 06/16/23 15:45 Neut # (Auto) 4.10 10^3/uL (1.8-7.7) 06/16/23 15:45 Lymph # (Auto) 2.6 10^3/uL (0.8-4.8) 06/16/23 15:45 [place] # (Auto) 0.7 10^3/uL (0.2-0.9) 06/16/23 15:45 Eos # (Auto) 0.2 10^3/uL (0.0-0.8) 06/16/23 15:45 Baso # (Auto) 0.1 10^3/uL (0.0-0.1) 06/16/23 15:45 Nucleated RBC % (auto) 0 % 06/16/23 15:45 Nucleated RBCs # 0.0 /100WBC 06/16/23 15:45 Sodium 137 mmol/L (136-145) 06/16/23 15:45 Potassium 4.5 mmol/L (3.5-5.1) 06/16/23 15:45 Chloride 102 mmol/L (98-107) 06/16/23 15:45 Carbon Dioxide 26 mmol/L (22-29) 06/16/23 15:45 Anion Gap 13.5 (5-19) 06/16/23 15:45 BUN 16 mg/dL (6-20) 06/16/23 15:45 Creatinine 0.6 mg/dL (0.5-0.9) 06/16/23 15:45 GFR Calculation 102.7 mL/min (90-130) 06/16/23 15:45 Glucose 106 mg/dL (65-115) 06/16/23 15:45 Calculated Osmolality 286 mOsm/kg (285-295) 06/16/23 15:45 Calcium 9.2 mg/dL (8.5-10.5) 06/16/23 15:45 Total Bilirubin 0.2 mg/dL (0.15-1.2) 06/16/23 15:45 AST 20 U/L (0-32) 06/16/23 15:45 ALT 32 U/L (0-33) 06/16/23 15:45 Alkaline Phosphatase 67 U/L (35-105) 06/16/23 15:45 Troponin T Baseline < 6 ng/L (0-10) 06/16/23 15:45 Total Protein 6.9 g/dL (6.6-8.7) 06/16/23 15:45 Albumin 4.2 g/dL (3.5-5.2) 06/16/23 15:45 Globulin 2.7 g/dL (1.3-4.6) 06/16/23 15:45 XR interpretation done by ED provider, pending radiology final review Discharge Plan Discharge Patient Disposition: Home Clinical Impression: Acute chest wall pain Condition: Stable Prescriptions: New diclofenac sodium 75 mg tablet,delayed release (DR/EC) 75 mg PO Q12H PRN (Reason: pain) Qty: 20 0RF No Action ezetimibe 10 mg tablet 10 mg PO BEDTIME albuterol sulfate 90 mcg/actuation aero powdr breath act w/sensor 2 inh INHALATION Q4H PRN (Reason: shortness of breath or wheezing) levothyroxine 100 mcg capsule 100 mcg PO QAM lisinopril 5 mg tablet 5 mg PO QAM aripiprazole 15 mg tablet 15 mg PO DAILY 30 Days Qty: 30 3RF desvenlafaxine succinate [Pristiq] 100 mg tablet extended release 24 hr 100 mg PO QAM Qty: 30 3RF hydroxyzine HCl 25 mg tablet 50 mg PO BID PRN (Reason: Itching) Qty: 90 3RF doxepin 25 mg capsule 25 - 50 mg PO BEDTIME 30 Days Qty: 30 3RF cetirizine [Zyrtec] 10 mg Tablet 10 mg PO BEDTIME metformin 500 mg tablet extended release 24 hr 500 mg PO BID multivitamin Tablet 1 tab PO QAM magnesium 250 mg Tablet 250 mg PO QAM primidone 50 mg tablet 75 mg PO BEDTIME ondansetron 4 mg tablet,disintegrating 4 mg PO Q8H PRN (Reason: Nausea) Ventolin HFA 90 mcg/actuation HFA aerosol inhaler 1 inh inhalation Q6H PRN (Reason: shortness of breath or wheezing) Qty: 6.7 0RF benzonatate 100 mg capsule 100 mg PO Q6H PRN (Reason: cough) Qty: 14 0RF Discharge Orders: Discharge ED (Routine); Ordered 06/16/23 Ordered By: George Arceo Referrals: Dimple Palumbo PA-C [Primary Care Provider] - Discharge Diet: Usual diet Discharge Activity: Increase activity as tolerated Patient Instructions: Opioid Safety, Pain Management Activity Restrictions/Additional Instructions: Thank you for choosing [facility] for your healthcare needs today. Please realize this is an emergency room and that we are providing you with a medical screening exam and this may not be complete and all inclusive of all the testing and or work up that you may need to determine your ailment or severity of your illness. It is very important that you follow up as instructed or that you return to the Emergency Department should you have concerns or if your condition changes or worsens in any way. Coding Level of Care Code ED Fabric Awning Repairer for Kerri Celis
[2023-06-16 15:54] LABS: Basophils # 0.1 10^3/uL (0.0-0.1); Basophils % 0.8 %; Eosinophils # 0.2 10^3/uL (0.0-0.8); Hematocrit 40.9 % (36-47); Lymphocytes # 2.6 10^3/uL (0.8-4.8); Lymphocytes % 33.6 %; Mean Corpuscular HGB Conc 32.3 g/dL (30-55); Mean Corpuscular Hemoglobin 29.5 pg (27-33); Mean Corpuscular Volume 91.3 fl (85-98); Mean Platelet Volume 9.4 fL (7.4-10.4); Monocytes # 0.7 10^3/uL (0.2-0.9); Monocytes % 9.4 %; Neutrophils % 53.1 %; Nucleated Red Blood Cells % 0 %; Platelet Count 298 10^3/cmm (157-399); Red Blood Count 4.48 10^6/uL (3.85-5.65); Red Cell Distribution Width 13.3 % (12.1-15.1); White Blood Count 7.73 10^3/uL (3.29-11.43)
[2023-06-16 16:11] LABS: Alanine Aminotransferase 32 U/L (0-33); Albumin Level 4.2 g/dL (3.5-5.2); Alkaline Phosphatase 67 U/L (35-105); Anion Gap 13.5 (5-19); Aspartate Amino Transferase 20 U/L (0-32); Blood Urea Nitrogen 16 mg/dL (6-20); Calcium 9.2 mg/dL (8.5-10.5); Carbon Dioxide 26 mmol/L (22-29); Chloride 102 mmol/L (98-107); Globulin 2.7 g/dL (1.3-4.6); Glomerular Filtration Rate 102.7 mL/min (90-130); Glucose 106 mg/dL (65-115); Osmolality Calculated 286 mOsm/kg (285-295); Potassium 4.5 mmol/L (3.5-5.1); Sodium 137 mmol/L (136-145); Total Bilirubin 0.2 mg/dL (0.15-1.2); Total Protein 6.9 g/dL (6.6-8.7)
[2023-06-16 16:13] LABS: Troponin(5th) Baseline < 6 ng/L (0-10)
[2023-06-16 16:57] VITALS: BP 113/53; PULSE 73; RESP 16; O2SAT 94
== END 2023-06-16 17:03 | disposition home or self-care (01) ==
PROVIDERS: Nurse Practitioner; Emergency Provider Family Medicine; PCP Physician Assistant
DX: R07.89 Other chest pain (principal); Z79.84 Long term (current) use of oral hypoglycemic drugs
CPT/HCPCS: 36415; 71045; 80053; 84484; 85025; 93005; 99285

== ENCOUNTER 2023-06-26 20:15 | Emergency (ER) | payer OTHER, SELFPAY ==
--- NOTE | 2023-06-26 20:17 | XRR_ITS ---
PROCEDURE INFORMATION: Exam: XR Chest Exam date and time: 06/26/2023 8:27 PM Age: 58 years old Clinical indication: Pain; Chest pressure; Additional info: Cp TECHNIQUE: Imaging protocol: Radiologic exam of the chest. Views: 1 view. COMPARISON: CR (CHEST, ) 06/16/2023 3:49 PM FINDINGS: Lungs: Unremarkable. No consolidation. Pleural spaces: Unremarkable. No pleural effusion. No pneumothorax. Heart/Mediastinum: Unremarkable. No cardiomegaly. Bones/joints: Unremarkable. XR/XR chest 1V portable [id number] IMPRESSION: No acute findings.
--- NOTE | 2023-06-26 20:25 | ECG_ITS ---
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 Measurements Intervals [place] Rate: 77 P: 46 MS: 161 QRS: -25 QRSD: 93 T: 62 QT: 372 QTc: 423 Interpretive Statements SINUS RHYTHM BORDERLINE LEFT AXIS DEVIATION [QRS AXIS < -20] Compared to ECG 06/16/2023 14:00:32 No significant changes Electronically Signed On 06-27-2023 13:48:40 STAFF ANESTHESIOLOGIST by Kiah Garcia M.D. [id number]
[2023-06-26 20:28] VITALS: BP 139/77; PULSE 78; RESP 16; TEMP 36.6; O2SAT 98
[2023-06-26 20:52] LABS: Basophils # 0.1 10^3/uL (0.0-0.1); Basophils % 0.5 %; Eosinophils # 0.4 10^3/uL (0.0-0.8); Eosinophils % 2.8 %; Hematocrit 43.1 % (36-47); Lymphocytes # 3.5 10^3/uL (0.8-4.8); Lymphocytes % 28.1 %; Mean Corpuscular HGB Conc 32.5 g/dL (30-55); Mean Corpuscular Hemoglobin 30.2 pg (27-33); Mean Corpuscular Volume 92.9 fl (85-98); Mean Platelet Volume 9.5 fL (7.4-10.4); Monocytes # 0.8 10^3/uL (0.2-0.9); Monocytes % 6.3 %; Neutrophils # 7.61 10^3/uL (1.8-7.7); Neutrophils % 61.9 %; Nucleated Red Blood Cells % 0 %; Platelet Count 317 10^3/cmm (157-399); Red Blood Count 4.64 10^6/uL (3.85-5.65); Red Cell Distribution Width 13.2 % (12.1-15.1)
[2023-06-26 21:15] LABS: Alanine Aminotransferase 40 U/L (0-33); Albumin Level 4.5 g/dL (3.5-5.2); Alkaline Phosphatase 68 U/L (35-105); Aspartate Amino Transferase 28 U/L (0-32); Blood Urea Nitrogen 17 mg/dL (6-20); Calcium 9.8 mg/dL (8.5-10.5); Carbon Dioxide 23 mmol/L (22-29); Chloride 100 mmol/L (98-107); Globulin 2.5 g/dL (1.3-4.6); Glomerular Filtration Rate 64.3 mL/min (90-130); Glucose 141 mg/dL (65-115); Osmolality Calculated 290 mOsm/kg (285-295); Sodium 138 mmol/L (136-145); Total Bilirubin 0.2 mg/dL (0.15-1.2); Troponin(5th) Baseline < 6 ng/L (0-10)
[2023-06-26 21:32] LABS: Anion Gap 19.1 (5-19); Potassium 4.1 mmol/L (3.5-5.1)
--- NOTE | 2023-06-26 21:38 | ECG_ITS ---
[facility] Test Date: 2023-06-26 Pat Name: Elizabeth Bernard Department: Room: Gender: Female Snubber: : 1965 Requested By: Real Langford Order Number: [id number] Alonso MD: Kiah Garcia M.D. Measurements Intervals [place] Rate: 75 P: 44 MN: 161 QRS: -17 QRSD: 90 T: 58 QT: 376 QTc: 421 Interpretive Statements SINUS RHYTHM Compared to ECG 06/16/2023 14:00:32 No significant changes Electronically Signed On 06-26-2023 21:50:31 CHILDRENS CLUB ATTENDANT by Kiah Garcia M.D. [id number]
--- NOTE | 2023-06-26 21:52 | ED_ITS ---
HPI - Chest Pain 2 General: Chief Complaint: Chest Pain Stated Complaint: pain in left breast, down arm and pinky is numb Time Seen by Provider: 06/26/23 20:56 History of Present Illness: Patient presents to the ER with complaint of pain in the left breast and radiates down her left arm to her elbow. And from her elbow to her fingertips on the pinky side there is numbness. Patient has been to the ER twice for this since the new year. She been once here and then once at a hospital in [place]. This started on and has been constant the entire time. Patient denies any nausea vomiting diarrhea shortness of breath. Patient does have a follow-up but they are not until July. Workups in both ERs were negative. Patient was given muscle relaxers and both ERs and she said that that they did not work patient was diagnosed with musculoskeletal pain in both ERs. Patient has a mammogram scheduled in the short-term future. Review of Systems 2 General: Reports: 10 or more systems reviewed and unremarkable except in HPI and below PFSH ED 2 PFSH: Medical History Anticipatory grief Psychiatric care Insomnia BENITO on CPAP Major depressive disorder, recurrent, moderate Surgical History H/O: hysterectomy H/O tubal ligation H/O rotator cuff surgery Family History Sister Ovarian cancer Diabetes Stroke TIA Brother Diabetes Hypertension Mother Diabetes Father Stroke Grandmother Stroke Paternal Other Stomach cancer Denies family history of Colon cancer Heart disease Hyperlipidemia Breast cancer Uterine cancer Thyroid disease Physical Exam 2 Const: COMMON NORMALS: no acute distress, average body habitus, patient oriented x3, no limitations, healthy appearing, alert and well nourished Neck/C-Spine: COMMON NORMALS: no JVD Chest: COMMONS NORMALS: normal inspection of the chest; negative for normal palpation of entire chest wall (Palpation of left anterior chest wall/breast area reproduces pain) Resp: COMMON NORMALS: normal respiratory effort, No retractions, No use of accessory muscles and clear to auscultation bilaterally AUSCULTATION: clear to auscultation bilaterally Cardio: COMMON NORMALS: no JVD, regular rate, regular rhythm, S1 normal heart sound present, S2 normal heart sound present, No gallops present (Cardio), No clicks present (Cardio), No murmurs present (Cardio) and No rub (Cardio) R ATE: regular rate RHYTHM: regular rhythm HEART SOUNDS: S1 normal heart sound present and S2 normal heart sound present GI: COMMON NORMALS: Normal to inspection, nondistended, normoactive bowel sounds present, Soft to palpation, non-tender, No hepatosplenomegaly present and no masses PALPATION: Yes Soft to palpation and Yes No hepatosplenomegaly present Neuro: COMMON NORMALS: patient oriented x3 SENSORIUM/ORIENTATION: Yes alert Course 2 Vital Signs: Vital signs: Vital Signs Temperature 97.9 F 06/26/23 20:28 Pulse Rate 78 06/26/23 20:28 Respiratory Rate 16 06/26/23 20:28 Blood Pressure 139/77 06/26/23 20:28 Pulse Oximetry 98 06/26/23 20:28 MDM - Chest Pain Medical Decision Making Patient presented musculoskeletal pain that radiates down her left arm as well as numbness. Patient is been to the ER twice. Patient is got muscle relaxers twice with no relief. We will give the patient 60 mg of Toradol and 10 mg of Decadron here. Patient be discharged home with 50 mg of prednisone daily for the next 5 days and tramadol to use as needed. Patient should keep her appointment with her family practice physician for further evaluation and treatment. Differential Diagnosis Unlikely acute massive pulmonary embolism, acute respiratory failure, acute myocardial infarction, cardiac arrest or sudden cardiac Medical Records I reviewed the patient's medical records. Lab Data I reviewed the patient's lab results. 06/26/23 20:38 06/26/23 20:38 Radiology Impressions Chest X-Ray 06/26/23 20:17 IMPRESSION: No acute findings. Laboratory Results WBC 12.30 10^3/uL (3.29-11.43) H 06/26/23 20:38 RBC 4.64 10^6/uL (3.85-5.65) 06/26/23 20:38 Hgb 14.00 g/dL (11.27-16.99) 06/26/23 20:38 Hct 43.1 % (36-47) 06/26/23 20:38 MCV 92.9 fl (85-98) 06/26/23 20:38 MCH 30.2 pg (27-33) 06/26/23 20:38 MCHC 32.5 g/dL (30-55) 06/26/23 20:38 RDW 13.2 % (12.1-15.1) 06/26/23 20:38 Plt Count 317 10^3/cmm (157-399) 06/26/23 20:38 MPV 9.5 fL (7.4-10.4) 06/26/23 20:38 Neut % (Auto) 61.9 % 06/26/23 20:38 Lymph % (Auto) 28.1 % 06/26/23 20:38 Gregory % (Auto) 6.3 % 06/26/23 20:38 Eos % (Auto) 2.8 % 06/26/23 20:38 Baso % (Auto) 0.5 % 06/26/23 20:38 Neut # (Auto) 7.61 10^3/uL (1.8-7.7) 06/26/23 20:38 Lymph # (Auto) 3.5 10^3/uL (0.8-4.8) 06/26/23 20:38 Gregory # (Auto) 0.8 10^3/uL (0.2-0.9) 06/26/23 20:38 Eos # (Auto) 0.4 10^3/uL (0.0-0.8) 06/26/23 20:38 Baso # (Auto) 0.1 10^3/uL (0.0-0.1) 06/26/23 20:38 Nucleated RBC % (auto) 0 % 06/26/23 20:38 Nucleated RBCs # 0.0 /100WBC 06/26/23 20:38 Sodium 138 mmol/L (136-145) 06/26/23 20:38 Potassium 4.1 mmol/L (3.5-5.1) 06/26/23 20:38 Chloride 100 mmol/L (98-107) 06/26/23 20:38 Carbon Dioxide 23 mmol/L (22-29) 06/26/23 20:38 Anion Gap 19.1 (5-19) H 06/26/23 20:38 BUN 17 mg/dL (6-20) 06/26/23 20:38 Creatinine 0.9 mg/dL (0.5-0.9) 06/26/23 20:38 GFR Calculation 64.3 mL/min (90-130) L 06/26/23 20:38 Glucose 141 mg/dL (65-115) H 06/26/23 20:38 Calculated Osmolality 290 mOsm/kg (285-295) 06/26/23 20:38 Calcium 9.8 mg/dL (8.5-10.5) 06/26/23 20:38 Total Bilirubin 0.2 mg/dL (0.15-1.2) 06/26/23 20:38 AST 28 U/L (0-32) 06/26/23 20:38 ALT 40 U/L (0-33) H 06/26/23 20:38 Alkaline Phosphatase 68 U/L (35-105) 06/26/23 20:38 Troponin T Baseline < 6 ng/L (0-10) 06/26/23 20:38 Total Protein 7.0 g/dL (6.6-8.7) 06/26/23 20:38 Albumin 4.5 g/dL (3.5-5.2) 06/26/23 20:38 Globulin 2.5 g/dL (1.3-4.6) 06/26/23 20:38 All radiology interpretation(s) finalized by discharge EKG Data EKG 1: I personally reviewed and interpreted this EKG as follows: EKG interpretation date: 06/26/23 EKG interpretation time: 21:38 Prior EKG tracings: not available for review Interpretation: EKG showed ventricular rate 75 beats minute, AL interval 161, QRS duration 90, QTc of 405, sinus rhythm, Discharge Plan Discharge Patient Disposition: Home Clinical Impression: Musculoskeletal chest pain Condition: Stable Prescriptions: No Action ezetimibe 10 mg tablet 10 mg PO BEDTIME albuterol sulfate 90 mcg/actuation aero powdr breath act w/sensor 2 inh INHALATION Q4H PRN (Reason: shortness of breath or wheezing) levothyroxine 100 mcg capsule 100 mcg PO QAM lisinopril 5 mg tablet 5 mg PO QAM aripiprazole 15 mg tablet 15 mg PO DAILY 30 Days Qty: 30 3RF desvenlafaxine succinate [Pristiq] 100 mg tablet extended release 24 hr 100 mg PO QAM Qty: 30 3RF hydroxyzine HCl 25 mg tablet 50 mg PO BID PRN (Reason: Itching) Qty: 90 3RF doxepin 25 mg capsule 25 - 50 mg PO BEDTIME 30 Days Qty: 30 3RF cetirizine [Zyrtec] 10 mg Tablet 10 mg PO BEDTIME metformin 500 mg tablet extended release 24 hr 500 mg PO BID multivitamin Tablet 1 tab PO QAM magnesium 250 mg Tablet 250 mg PO QAM primidone 50 mg tablet 75 mg PO BEDTIME ondansetron 4 mg tablet,disintegrating 4 mg PO Q8H PRN (Reason: Nausea) Ventolin HFA 90 mcg/actuation HFA aerosol inhaler 1 inh inhalation Q6H PRN (Reason: shortness of breath or wheezing) Qty: 6.7 0RF benzonatate 100 mg capsule 100 mg PO Q6H PRN (Reason: cough) Qty: 14 0RF diclofenac sodium 75 mg tablet,delayed release (DR/EC) 75 mg PO Q12H PRN (Reason: pain) Qty: 20 0RF Discharge Orders: Discharge ED (Routine); Ordered 06/26/23 Ordered By: Vitaliy Ignacio Referrals: Dimple Palumbo PA-C [Primary Care Provider] - 1 week Patient Instructions: Opioid Safety, Pain Management, Musculoskeletal Pain (ED) Activity Restrictions/Additional Instructions: Please take your medicine as directed. Please follow-up with your family practice physician for further evaluation and testing. Coding Level of Care Code ED Embedded Developer for Kerri Celis
[2023-06-26] MEDS: dexamethasone 10 mg/mL INJ IM (22:03)
[2023-06-26] MEDS: ketorolac 60 mg/2 mL INJ IM (22:04)
[2023-06-26 23:09] VITALS: BP 166/78; PULSE 68; RESP 17; O2SAT 98
== END 2023-06-26 23:11 | disposition home or self-care (01) ==
PROVIDERS: Emergency Medicine; Emergency Provider Emergency Medicine; PCP Physician Assistant
DX: R07.89 Other chest pain (principal); Z79.84 Long term (current) use of oral hypoglycemic drugs
CPT/HCPCS: 36415; 71045; 80053; 84484; 85025; 93005; 96372; 99285; J1100; J1885

== ENCOUNTER 2023-07-17 05:49 | Emergency (ER) | payer OTHER, SELFPAY ==
[2023-07-17 05:52] VITALS: BP 157/101; PULSE 83; RESP 16; TEMP 36.6; O2SAT 97; BMI 41.9
--- NOTE | 2023-07-17 05:54 | ECG_ITS ---
[facility] Test Date: 2023-07-17 Pat Name: Elizabeth Bernard Department: Room: Gender: Female Emergency Vehicle Dispatcher: : 1965 Requested By: George Thomas Order Number: [id number] Alonso MD: Billy Champagne M.D. Measurements Intervals [place] Rate: 76 P: 8 MN: 157 QRS: 0 QRSD: 85 T: 50 QT: 368 QTc: 416 Interpretive Statements SINUS RHYTHM Compared to ECG 06/26/2023 21:38:58 No significant changes Electronically Signed On 07-17-2023 16:03:40 SBA BUSINESS DEVELOPMENT OFFICER by Billy Champagne M.D. [id number]
[2023-07-17] MEDS: ketorolac 30 mg/mL INJ IVP (06:11)
[2023-07-17] MEDS: orphenadrine 30 mg/mL Inj 2 mL 60 MG IVP (06:14)
[2023-07-17 06:19] VITALS: RESP 16
[2023-07-17] MEDS: morphine 4 mg/mL SDV 1 mL IVP (06:19)
[2023-07-17] MEDS: dexamethasone 10 mg/mL INJ IM (06:19)
[2023-07-17 06:30] LABS: Basophils # 0.1 10^3/uL (0.0-0.1); Basophils % 0.6 %; Eosinophils # 0.3 10^3/uL (0.0-0.8); Eosinophils % 2.8 %; Lymphocytes # 3.9 10^3/uL (0.8-4.8); Lymphocytes % 37.8 %; Mean Corpuscular HGB Conc 32.9 g/dL (30-55); Mean Corpuscular Hemoglobin 30.3 pg (27-33); Mean Platelet Volume 9.5 fL (7.4-10.4); Monocytes # 0.9 10^3/uL (0.2-0.9); Monocytes % 8.4 %; Neutrophils # 5.15 10^3/uL (1.8-7.7); Neutrophils % 50.1 %; Nucleated Red Blood Cells % 0 %; Platelet Count 266 10^3/cmm (157-399); Red Blood Count 4.13 10^6/uL (3.85-5.65); Red Cell Distribution Width 13.5 % (12.1-15.1); White Blood Count 10.28 10^3/uL (3.29-11.43)
--- NOTE | 2023-07-17 06:30 | ED_ITS ---
HPI - Extremity Problem 2 General: Chief complaint: Extremity Problem,Nontraumatic Stated complaint: left arm pain Time Seen by Provider: 07/17/23 05:53 Source: patient Mode of arrival: ambulatory History of Present Illness: 50-year-old female presents emergency ro om with left arm radicular pain. This been going on for over a month she is seen physician for an outside clinic is referred to spine surgery had an MRI at another facility we do not have access to the MRI. She is on hydrocodone at home for the pain she states hydrocodone is not managing the pain at this point additionally she use diclofenac. She denies any chest pain or shortness of breath MD Complaint: extremity pain Onset (ago): week(s) Pain Consistency: constant Location: left and upper extremity Quality: sharp Radiation: distal Relieving factors: nothing Exacerbating factors: nothing Associated symptoms: Deny arthralgias, chest pain, fever(s), myalgias, rash or short of breath Review of Systems 2 Const: Denies: fever(s) Card: Denies: chest pain Resp: Denies: dyspnea GI: Denies: abdominal pain : Denies: dysuria, urinary frequency or urinary urgency Musc: Denies: neck pain or back pain Skin/Breast: Denies: rash PFSH ED 2 PFSH: Medical History Anticipatory grief Psychiatric care Insomnia BENITO on CPAP Major depressive disorder, recurrent, moderate Surgical History H/O: hysterectomy H/O tubal ligation H/O rotator cuff surgery Family History Sister Ovarian cancer Diabetes Stroke TIA Brother Diabetes Hypertension Mother Diabetes Father Stroke Grandmother Stroke Paternal Other Stomach cancer Denies family history of Colon cancer Heart disease Hyperlipidemia Breast cancer Uterine cancer Thyroid disease Physical Exam 2 Const: GENERAL APPEARANCE: cooperative and comfortable O RIENTATION/CONSCIOUSNESS: Yes awake, Yes oriented to person, Yes oriented to place and Yes oriented to time HENMT: COMMON NORMALS: normocephalic, atraumatic and hearing grossly normal bilaterally HEAD & SCALP: normocephalic and atraumatic Resp: COMMON NORMALS: normal respiratory effort, No retractions, No use of accessory muscles and clear to auscultation bilaterally AUSCULTATION: clear to auscultation bilaterally Cardio: COMMON NORMALS: regular rate, regular rhythm and No murmurs present (Cardio) RATE: regular rate RHYTHM: regular rhythm Extremity: COMMON NORMALS: normal to inspection, capillary refill normal, no clubbing, cyanosis or edema, no calf tenderness and no pedal edema Neuro: SENSORIUM/ORIENTATION: Yes oriented to person, Yes oriented to place and Yes oriented to time Skin: COMMON NORMALS: no rashes or lesions noted GENERAL SKIN EXAM: no rashes or lesions noted Course 2 Vital Signs: Vital signs: Vital Signs Temperature 97.9 F 07/17/23 05:52 Pulse Rate 83 07/17/23 05:52 Respiratory Rate 16 07/17/23 06:19 Blood Pressure 157/101 07/17/23 05:52 Pulse Oximetry 97 07/17/23 05:52 Oxygen Delivery Me thod Room Air 07/17/23 05:52 MDM - Extremity (Nontraumatic) Medical Decision Making Improved in the ER with medications given patient states that she has hydrocodone at home. Will discharge home with prednisone taper refilled her diclofenac also gave her tizanidine to use as needed continue to use the hydrocodone her follow-up with her primary care doctor or orthopedic spine surgery for further adjustments and pain control regimen. Patient recently had an MRI no acute trauma related to this event no imaging done with this visit. Medical Records I reviewed the patient's medical records. Lab Data I reviewed the patient's lab results. 07/17/23 06:20 07/17/23 06:20 Laboratory Results WBC 10.28 10^3/uL (3.29-11.43) 07/17/23 06:20 RBC 4.13 10^6/uL (3.85-5.65) 07/17/23 06:20 Hgb 12.50 g/dL (11.27-16.99) 07/17/23 06:20 Hct 38.0 % (36-47) 07/17/23 06:20 MCV 92.0 fl (85-98) 07/17/23 06:20 MCH 30.3 pg (27-33) 07/17/23 06:20 MCHC 32.9 g/dL (30-55) 07/17/23 06:20 RDW 13.5 % (12.1-15.1) 07/17/23 06:20 Plt Count 266 10^3/cmm (157-399) 07/17/23 06:20 MPV 9.5 fL (7.4-10.4) 07/17/23 06:20 Neut % (Auto) 50.1 % 07/17/23 06:20 Lymph % (Auto) 37.8 % 07/17/23 06:20 [place] % (Auto) 8.4 % 07/17/23 06:20 Eos % (Auto) 2.8 % 07/17/23 06:20 Baso % (Auto) 0.6 % 07/17/23 06:20 Neut # (Auto) 5.15 10^3/uL (1.8-7.7) 07/17/23 06:20 Lymph # (Auto) 3.9 10^3/uL (0.8-4.8) 07/17/23 06:20 [place] # (Auto) 0.9 10^3/uL (0.2-0.9) 07/17/23 06:20 Eos # (Auto) 0.3 10^3/uL (0.0-0.8) 07/17/23 06:20 Baso # (Auto) 0.1 10^3/uL (0.0-0.1) 07/17/23 06:20 Nucleated RBC % (auto) 0 % 07/17/23 06:20 Nucleated RBCs # 0.0 /100WBC 07/17/23 06:20 ESR 15 mm/hr (0-15) 07/17/23 06:20 Sodium 137 mmol/L (136-145) 07/17/23 06:20 Potassium 4.3 mmol/L (3.5-5.1) 07/17/23 06:20 Chloride 100 mmol/L (98-107) 07/17/23 06:20 Carbon Dioxide 25 mmol/L (22-29) 07/17/23 06:20 Anion Gap 16.3 (5-19) 07/17/23 06:20 BUN 16 mg/dL (6-20) 07/17/23 06:20 Creatinine 0.6 mg/dL (0.5-0.9) 07/17/23 06:20 GFR Calculation 102.7 mL/min (90-130) 07/17/23 06:20 Glucose 130 mg/dL (65-115) H 07/17/23 06:20 Calculated Osmolality 287 mOsm/kg (285-295) 07/17/23 06:20 Calcium 9.4 mg/dL (8.5-10.5) 07/17/23 06:20 Total Bilirubin 0.2 mg/dL (0.15-1.2) 07/17/23 06:20 AST 20 U/L (0-32) 07/17/23 06:20 ALT 41 U/L (0-33) H 07/17/23 06:20 Alkaline Phosphatase 59 U/L (35-105) 07/17/23 06:20 Total Protein 6.8 g/dL (6.6-8.7) 07/17/23 06:20 Albumin 4.3 g/dL (3.5-5.2) 07/17/23 06:20 Globulin 2.5 g/dL (1.3-4.6) 07/17/23 06:20 No radiology studies performed this visit Discharge Plan Discharge Patient Disposition: Home Clinical Impression: Radicular pain of left upper extremity Condition: Stable Prescriptions: New tizanidine 4 mg tablet 4 mg PO Q6H PRN (Reason: muscle spasticity) Qty: 20 0RF Rx Instructions: do not exceed 3 doses per 24 hrs prednisone 20 mg tablet 20 mg PO TID Qty: 15 0RF Rx Instructions: 1 p.o. 3 times daily x3 days, 1 p.o. twice daily x2 days, 1 p.o. daily x2 days diclofenac sodium 75 mg tablet,delayed release (DR/EC) 75 mg PO Q12H PRN (Reason: pain) Qty: 20 0RF Discontinued prednisone 50 mg tablet 50 mg PO DAILY Qty: 5 0RF No Action ezetimibe 10 mg tablet 10 mg PO BEDTIME albuterol sulfate 90 mcg/actuation aero powdr breath act w/sensor 2 inh INHALATION Q4H PRN (Reason: shortness of breath or wheezing) levothyroxine 100 mcg capsule 100 mcg PO QAM lisinopril 5 mg tablet 5 mg PO QAM aripiprazole 15 mg tablet 15 mg PO DAILY 30 Days Qty: 30 3RF desvenlafaxine succinate [Pristiq] 100 mg tablet extended release 24 hr 100 mg PO QAM Qty: 30 3RF hydroxyzine HCl 25 mg tablet 50 mg PO BID PRN (Reason: Itching) Qty: 90 3RF doxepin 25 mg capsule 25 - 50 mg PO BEDTIME 30 Days Qty: 30 3RF cetirizine [Zyrtec] 10 mg Tablet 10 mg PO BEDTIME metformin 500 mg tablet extended release 24 hr 500 mg PO BID tramadol 50 mg tablet 50 mg PO Q8H PRN (Reason: pain) Qty: 14 0RF multivitamin Tablet 1 tab PO QAM magnesium 250 mg Tablet 250 mg PO QAM primidone 50 mg tablet 75 mg PO BEDTIME ondansetron 4 mg tablet,disintegrating 4 mg PO Q8H PRN (Reason: Nausea) Ventolin HFA 90 mcg/actuation HFA aerosol inhaler 1 inh inhalation Q6H PRN (Reason: shortness of breath or wheezing) Qty: 6.7 0RF benzonatate 100 mg capsule 100 mg PO Q6H PRN (Reason: cough) Qty: 14 0RF diclofenac sodium 75 mg tablet,delayed release (DR/EC) 75 mg PO Q12H PRN (Reason: pain) Qty: 20 0RF Discharge Orders: Discharge ED (Routine); Ordered 07/17/23 Ordered By: George Arceo Referrals: Dimple Palumbo PA-C [Primary Care Provider] - Discharge Diet: Usual diet Discharge Activity: Resume usual activity Patient Instructions: Opioid Safety, Pain Management Activity Restrictions/Additional Instructions: Thank you for choosing [facility] for your healthcare needs today. Please realize this is an emergency room and that we are providing you with a medical screening exam and this may not be complete and all inclusive of all the testing and or work up that you may need to determine your ailment or severity of your illness. It is very important that you follow up as instructed or that you return to the Emergency Department should you have concerns or if your condition changes or worsens in any way. You were seen today for left arm pain is likely caused by nerve impingement in. Recommend you continue to follow-up with the spine surgery clinic you had previously seen. You are given pain medications anti-inflammatories and steroids in the emergency room given a prescription for a steroid taper and oral muscle relaxers to take at home. Continue the diclofenac you are previously prescribed along with the hydrocodone you mentioned that you are doctor had previously prescribed follow-up with the spine clinic your primary care doctor for further adjustments and pain control regimen. Coding Level of Care Code ED Conformal Pad Former for Kerri Celis
[2023-07-17 06:49] LABS: Erythrocyte Sedimentation Rate 15 mm/hr (0-15)
[2023-07-17 06:52] LABS: Alanine Aminotransferase 41 U/L (0-33); Albumin Level 4.3 g/dL (3.5-5.2); Alkaline Phosphatase 59 U/L (35-105); Anion Gap 16.3 (5-19); Aspartate Amino Transferase 20 U/L (0-32); Blood Urea Nitrogen 16 mg/dL (6-20); Calcium 9.4 mg/dL (8.5-10.5); Carbon Dioxide 25 mmol/L (22-29); Chloride 100 mmol/L (98-107); Creatinine Clr Calc Pharmacy 133.5168; Globulin 2.5 g/dL (1.3-4.6); Glomerular Filtration Rate 102.7 mL/min (90-130); Glucose 130 mg/dL (65-115); Osmolality Calculated 287 mOsm/kg (285-295); Potassium 4.3 mmol/L (3.5-5.1); Sodium 137 mmol/L (136-145); Total Bilirubin 0.2 mg/dL (0.15-1.2); Total Protein 6.8 g/dL (6.6-8.7)
[2023-07-17 07:13] VITALS: BP 157/101; PULSE 83; RESP 16; TEMP 36.6; O2SAT 97
== END 2023-07-17 07:14 | disposition home or self-care (01) ==
PROVIDERS: Emergency Provider Family Medicine; PCP Physician Assistant
DX: M54.10 Radiculopathy, site unspecified (principal); Z79.84 Long term (current) use of oral hypoglycemic drugs
CPT/HCPCS: 80053; 85025; 85651; 93005; 96372; 96374; 96375; 99284; J1100; J1885; J2270; J2360

== ENCOUNTER 2023-07-20 11:56 | Emergency (ER) | payer OTHER, SELFPAY ==
[2023-07-20 12:25] VITALS: BP 152/85; PULSE 86; RESP 16; TEMP 36.8; O2SAT 96; BMI 41.9
--- NOTE | 2023-07-20 12:51 | ECG_ITS ---
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 Measurements Intervals [place] Rate: 76 P: 39 MA: 147 QRS: -6 QRSD: 89 T: 47 QT: 354 QTc: 400 Interpretive Statements SINUS RHYTHM Compared to ECG 07/17/2023 06:19:36 No significant changes Electronically Signed On 07-21-2023 8:38:12 ORCHESTRA LEADER by Billy Champagne M.D. [id number]
--- NOTE | 2023-07-20 12:51 | XRR_ITS ---
PROCEDURE INFORMATION: Exam: XR Chest Exam date and time: 07/20/2023 1:19 PM Age: 58 years old Clinical indication: Angina pectoris; Patient HX: Left lat chest/arm pain x 1 month; Worse today; No cardiac HX TECHNIQUE: Imaging protocol: Radiologic exam of the chest. Views: 1 view. COMPARISON: CR (CHEST, ) 06/26/2023 8:27 PM FINDINGS: Lungs: No significant active pathology. Pleural spaces: No pleural effusion or pneumothorax. Heart/Mediastinum: Unremarkable. Bones/joints: No significant pathology. XR/XR chest 1V portable [id number] IMPRESSION: No acute pathology or significant interval change.
--- NOTE | 2023-07-20 12:57 | W.ED.EXTPRO ---
HPI - Extremity Problem General: Chief complaint: Extremity Injury, Upper Stated complaint: left arm pain Time Seen by Provider: 07/20/23 11:59 Source: patient Mode of arrival: ambulatory Limitations: no limitations History of Present Illness: 58-year-old female states that she has been having left breast and left arm pain for a month and a half she has been seen for this in the past she states her PCP has her set up for a ultrasound and mammogram on the eighth of this month she is also postop see a neurosurgeon for her arm pain. States he pain continues and her pain medicine at home is not working for her. She denies any fevers denies any worsening proving factors. Associated symptoms: Reports chest pain; Deny fever(s) or rash Review of Systems Const: Denies: fever(s), chills, body aches or change in appetite ENMT: Denies: throat pain or dental pain Card: Reports: chest pain Resp: Denies: dyspnea GI: Denies: abdominal pain, nausea, vomiting or diarrhea Musc: Reports: extremity pain; Denies: neck pain or back pain Skin/Breast: Denies: rash PFSH ED PFSH: Medical History Anticipatory grief Psychiatric care Insomnia BENITO on CPAP Major depressive disorder, recurrent, moderate Surgical History H/O: hysterectomy H/O tubal ligation H/O rotator cuff surgery Family History Sister Ovarian cancer Diabetes Stroke TIA Brother Diabetes Hypertension Mother Diabetes Father Stroke Grandmother Stroke Paternal Other Stomach cancer Denies family history of Colon cancer Heart disease Hyperlipidemia Breast cancer Uterine cancer Thyroid disease Physical Exam Const: COMMON NORMALS: no acute distress, patient oriented x3 and healthy appearing HENMT: COMMON NORMALS: normocephalic and atraumatic HEAD & SCALP: normocephalic and atraumatic Neck/C-Spine: COMMON NORMALS: full ROM and supple Chest: COMMONS NORMALS: normal inspection of the chest OTHER: Tenderness over left breast reproduces pain Resp: COMMON NORMALS: normal respiratory effort, No retractions, No use of accessory muscles and clear to auscultation bilaterally AUSCULTATION: clear to auscultation bilaterally Cardio: COMMON NORMALS: regular rate, regular rhythm and No murmurs present (Cardio) RATE: regular rate RHYTHM: regular rhythm Extremity: COMMON NORMALS: normal to inspection and full ROM Neuro: COMMON NORMALS: patient oriented x3, moves all extremities and no focal motor deficits Psych: COMMON NORMALS: mental status grossly normal, Normal thought process present and cooperative THOUGHT PROCESS: Normal thought process present Skin: COMMON NORMALS: no rashes or lesions noted and no wounds GENERAL SKIN EXAM: no rashes or lesions noted Course Vital Signs: Vital signs: Vital Signs Temperature 98.2 F 07/20/23 12:25 Pulse Rate 0 L 07/20/23 13:08 Respiratory Rate 16 07/20/23 12:25 Blood Pressure 123/81 07/20/23 13:08 Pulse Oximetry 92 07/20/23 13:08 Oxygen Delivery Me thod Room Air 07/20/23 13:08 MDM - Extremity (Nontraumatic) Medical Decision Making Patient presents here with left arm left breast pain has been going on for months she has no acute findings here blood works normal no signs of ACS she is to follow-up as scheduled we will prescribe her Percocets for her pain return if worsening. Medical Records I reviewed the patient's medical records. Lab Data I reviewed the patient's lab results. 07/20/23 13:05 07/20/23 13:05 Laboratory Results WBC 9.62 10^3/uL (3.29-11.43) 07/20/23 13:05 RBC 4.50 10^6/uL (3.85-5.65) 07/20/23 13:05 Hgb 13.50 g/dL (11.27-16.99) 07/20/23 13:05 Hct 40.6 % (36-47) 07/20/23 13:05 MCV 90.2 fl (85-98) 07/20/23 13:05 MCH 30.0 pg (27-33) 07/20/23 13:05 MCHC 33.3 g/dL (30-55) 07/20/23 13:05 RDW 13.3 % (12.1-15.1) 07/20/23 13:05 Plt Count 298 10^3/cmm (157-399) 07/20/23 13:05 MPV 9.4 fL (7.4-10.4) 07/20/23 13:05 Neut % (Auto) 61.8 % 07/20/23 13:05 Lymph % (Auto) 28.2 % 07/20/23 13:05 [place] % (Auto) 5.7 % 07/20/23 13:05 Eos % (Auto) 3.3 % 07/20/23 13:05 Baso % (Auto) 0.5 % 07/20/23 13:05 Neut # (Auto) 5.94 10^3/uL (1.8-7.7) 07/20/23 13:05 Lymph # (Auto) 2.7 10^3/uL (0.8-4.8) 07/20/23 13:05 [place] # (Auto) 0.6 10^3/uL (0.2-0.9) 07/20/23 13:05 Eos # (Auto) 0.3 10^3/uL (0.0-0.8) 07/20/23 13:05 Baso # (Auto) 0.1 10^3/uL (0.0-0.1) 07/20/23 13:05 Nucleated RBC % (auto) 0 % 07/20/23 13:05 Nucleated RBCs # 0.0 /100WBC 07/20/23 13:05 Sodium 138 mmol/L (136-145) 07/20/23 13:05 Potassium 4.5 mmol/L (3.5-5.1) 07/20/23 13:05 Chloride 99 mmol/L (98-107) 07/20/23 13:05 Carbon Dioxide 28 mmol/L (22-29) 07/20/23 13:05 Anion Gap 15.5 (5-19) 07/20/23 13:05 BUN 14 mg/dL (6-20) 07/20/23 13:05 Creatinine 0.6 mg/dL (0.5-0.9) 07/20/23 13:05 GFR Calculation 102.7 mL/min (90-130) 07/20/23 13:05 Glucose 187 mg/dL (65-115) H 07/20/23 13:05 Calculated Osmolality 291 mOsm/kg (285-295) 07/20/23 13:05 Calcium 9.9 mg/dL (8.5-10.5) 07/20/23 13:05 Total Bilirubin 0.2 mg/dL (0.15-1.2) 07/20/23 13:05 AST 21 U/L (0-32) 07/20/23 13:05 ALT 40 U/L (0-33) H 07/20/23 13:05 Alkaline Phosphatase 67 U/L (35-105) 07/20/23 13:05 Troponin T Baseline 7 ng/L (0-10) 07/20/23 13:05 Total Protein 6.7 g/dL (6.6-8.7) 07/20/23 13:05 Albumin 4.4 g/dL (3.5-5.2) 07/20/23 13:05 Globulin 2.3 g/dL (1.3-4.6) 07/20/23 13:05 All radiology interpretation(s) finalized by discharge EKG Data EKG 1: I personally reviewed and interpreted this EKG as follows: EKG interpretation date: 07/20/23 EKG interpretation time: 13:02 Interpretation: nsr hr [address] or t wave abnormaliies qrs 89 qtc 385 Discharge Plan Discharge Patient Disposition: Home Clinical Impression: Arm pain, left, Breast pain Condition: Stable Prescriptions: New Percocet 7.5-325 mg tablet 1 tab PO Q8H PRN (Reason: pain) Qty: 14 0RF No Action ezetimibe 10 mg tablet 10 mg PO BEDTIME albuterol sulfate 90 mcg/actuation aero powdr breath act w/sensor 2 inh INHALATION Q4H PRN (Reason: shortness of breath or wheezing) levothyroxine 100 mcg capsule 100 mcg PO QAM lisinopril 5 mg tablet 5 mg PO QAM aripiprazole 15 mg tablet 15 mg PO DAILY 30 Days Qty: 30 3RF desvenlafaxine succinate [Pristiq] 100 mg tablet extended release 24 hr 100 mg PO QAM Qty: 30 3RF hydroxyzine HCl 25 mg tablet 50 mg PO BID PRN (Reason: Itching) Qty: 90 3RF doxepin 25 mg capsule 25 - 50 mg PO BEDTIME 30 Days Qty: 30 3RF cetirizine [Zyrtec] 10 mg Tablet 10 mg PO BEDTIME metformin 500 mg tablet extended release 24 hr 500 mg PO BID tramadol 50 mg tablet 50 mg PO Q8H PRN (Reason: pain) Qty: 14 0RF multivitamin Tablet 1 tab PO QAM magnesium 250 mg Tablet 250 mg PO QAM primidone 50 mg tablet 75 mg PO BEDTIME ondansetron 4 mg tablet,disintegrating 4 mg PO Q8H PRN (Reason: Nausea) Ventolin HFA 90 mcg/actuation HFA aerosol inhaler 1 inh inhalation Q6H PRN (Reason: shortness of breath or wheezing) Qty: 6.7 0RF benzonatate 100 mg capsule 100 mg PO Q6H PRN (Reason: cough) Qty: 14 0RF diclofenac sodium 75 mg tablet,delayed release (DR/EC) 75 mg PO Q12H PRN (Reason: pain) Qty: 20 0RF tizanidine 4 mg tablet 4 mg PO Q6H PRN (Reason: muscle spasticity) Qty: 20 0RF Rx Instructions: do not exceed 3 doses per 24 hrs prednisone 20 mg tablet 20 mg PO TID Qty: 15 0RF Rx Instructions: 1 p.o. 3 times daily x3 days, 1 p.o. twice daily x2 days, 1 p.o. daily x2 days diclofenac sodium 75 mg tablet,delayed release (DR/EC) 75 mg PO Q12H PRN (Reason: pain) Qty: 20 0RF Discharge Orders: Discharge ED (Routine); Ordered 07/20/23 Ordered By: Real Langford Referrals: Dimple Palumbo PA-C [Primary Care Provider] - 1-3 days Discharge Diet: Advance as tolerated Discharge Activity: Resume usual activity Patient Instructions: Chest Wall Pain (ED), Opioid Safety Coding Level of Care Code ED Industrial Safety And Health Specialist for Kerri Celis
[2023-07-20] MEDS: morphine 4 mg/mL SDV 1 mL IVP (12:58)
[2023-07-20] MEDS: ondansetron 2 mg/ML SDV 2 mL 4 MG IVP (12:58)
[2023-07-20 13:08] VITALS: BP 123/81; PULSE 0; PULSE 79; O2SAT 92
[2023-07-20 13:12] LABS: Basophils # 0.1 10^3/uL (0.0-0.1); Basophils % 0.5 %; Eosinophils # 0.3 10^3/uL (0.0-0.8); Eosinophils % 3.3 %; Hematocrit 40.6 % (36-47); Lymphocytes # 2.7 10^3/uL (0.8-4.8); Lymphocytes % 28.2 %; Mean Corpuscular HGB Conc 33.3 g/dL (30-55); Mean Corpuscular Volume 90.2 fl (85-98); Mean Platelet Volume 9.4 fL (7.4-10.4); Monocytes # 0.6 10^3/uL (0.2-0.9); Monocytes % 5.7 %; Neutrophils # 5.94 10^3/uL (1.8-7.7); Neutrophils % 61.8 %; Nucleated Red Blood Cells % 0 %; Platelet Count 298 10^3/cmm (157-399); Red Cell Distribution Width 13.3 % (12.1-15.1); White Blood Count 9.62 10^3/uL (3.29-11.43)
[2023-07-20 13:35] LABS: Alanine Aminotransferase 40 U/L (0-33); Albumin Level 4.4 g/dL (3.5-5.2); Alkaline Phosphatase 67 U/L (35-105); Anion Gap 15.5 (5-19); Aspartate Amino Transferase 21 U/L (0-32); Blood Urea Nitrogen 14 mg/dL (6-20); Calcium 9.9 mg/dL (8.5-10.5); Carbon Dioxide 28 mmol/L (22-29); Chloride 99 mmol/L (98-107); Creatinine Clr Calc Pharmacy 133.5168; Globulin 2.3 g/dL (1.3-4.6); Glomerular Filtration Rate 102.7 mL/min (90-130); Glucose 187 mg/dL (65-115); Osmolality Calculated 291 mOsm/kg (285-295); Potassium 4.5 mmol/L (3.5-5.1); Sodium 138 mmol/L (136-145); Total Bilirubin 0.2 mg/dL (0.15-1.2); Total Protein 6.7 g/dL (6.6-8.7)
[2023-07-20 13:38] LABS: Troponin(5th) Baseline 7 ng/L (0-10)
== END 2023-07-20 13:55 | disposition home or self-care (01) ==
PROVIDERS: Emergency Provider Emergency Medicine; PCP Physician Assistant
DX: M79.602 Pain in left arm (principal); N64.4 Mastodynia; Z79.84 Long term (current) use of oral hypoglycemic drugs
CPT/HCPCS: 71045; 80053; 84484; 85025; 93005; 96374; 96375; 99285; J2270; J2405

== ENCOUNTER 2023-07-21 06:52 | Emergency (ER) | payer OTHER, SELFPAY ==
[2023-07-21 07:01] VITALS: BP 176/69; PULSE 81; TEMP 36.8; O2SAT 92; BMI 41.9
[2023-07-21] MEDS: sodium chloride 0.9% 1,000 ML 999 ML IV (07:10)
[2023-07-21] MEDS: ondansetron 2 mg/ML SDV 2 mL 4 MG IVP (07:11)
[2023-07-21 07:21] LABS: Basophils # 0.1 10^3/uL (0.0-0.1); Basophils % 0.4 %; Eosinophils # 0.1 10^3/uL (0.0-0.8); Eosinophils % 0.9 %; Hematocrit 40.5 % (36-47); Lymphocytes # 1.6 10^3/uL (0.8-4.8); Lymphocytes % 12.6 %; Mean Corpuscular HGB Conc 33.1 g/dL (30-55); Mean Corpuscular Hemoglobin 29.8 pg (27-33); Mean Platelet Volume 9.3 fL (7.4-10.4); Monocytes # 0.6 10^3/uL (0.2-0.9); Monocytes % 4.7 %; Neutrophils # 10.26 10^3/uL (1.8-7.7); Nucleated Red Blood Cells % 0 %; Platelet Count 305 10^3/cmm (157-399); Red Cell Distribution Width 13.2 % (12.1-15.1); White Blood Count 12.67 10^3/uL (3.29-11.43)
[2023-07-21] MEDS: ketorolac 30 mg/mL INJ IVP (07:23)
[2023-07-21] MEDS: promethazine 25 mg/mL SDV 1 mL IM (07:24)
--- NOTE | 2023-07-21 07:25 | W.ED.HA ---
HPI - Headache General: Chief Complaint: Headache Stated Complaint: vomiting, headache Time Seen by Provider: 07/21/23 06:55 Source: patient Mode of arrival: ambulatory History of Present Illness: 58-year-old female presents emergency room complaining of nausea and vomiting with headache began overnight. She was seen yesterday for some shoulder pain that was diagnosed as musculoskeletal she took a Percocet and then began having nausea and vomiting about an hour later. She is complaining of a headache that radiates from the suboccipital region bilaterally to the frontal region bilaterally. She describes it as feeling like a band on her head. She has had problems with headaches in the past. She has some nausea and vomiting with clear vomitus this morning. No head trauma. No hematemesis or coffee-ground emesis. She has a history of diabetes mellitus is on metformin she is not recently changed any doses. She does have a history of hypertension she has not taken any of her medications this morning subsequently blood pressure is significantly elevated. MD elicited complaint: headache Onset (ago): hour(s) Onset description: suddenly Location: right, left, frontal and occipital Severity: moderate Quality & Timing: throbbing Exacerbating factors: none Relieving factors: nothing Associated symptoms: Deny chest pain, confusion, cough, diaphoresis, eye pain, eye redness, fever(s), lightheadedness, loss of vision, malaise, nausea, neck stiffness, numbness, paresthesias, photophobia, pre-syncope, rash, seizures, short of breath, sound sensitivity, syncope, vomiting or weakness Treatments prior to arrival: none Review of Systems Const: Denies: fever(s), chills, malaise or diaphoresis Card: Denies: chest pain, lightheadedness, syncope or pre-syncope Resp: Denies: dyspnea GI: Denies: abdominal pain, nausea or vomiting : Denies: dysuria, urinary frequency or urinary urgency Musc: Denies: neck pain or back pain Skin/Breast: Denies: rash Neuro: Denies: confusion PFSH ED PFSH: Medical History Anticipatory grief Psychiatric care Insomnia BENITO on CPAP Major depressive disorder, recurrent, moderate Surgical History H/O: hysterectomy H/O tubal ligation H/O rotator cuff surgery Family History Sister Ovarian cancer Diabetes Stroke TIA Brother Diabetes Hypertension Mother Diabetes Father Stroke Grandmother Stroke Paternal Other Stomach cancer Denies family history of Colon cancer Heart disease Hyperlipidemia Breast cancer Uterine cancer Thyroid disease Physical Exam Const: COMMON NORMALS: no acute distress GENERAL APPEARANCE: cooperative and comfortable ORIENTATION/CONSCIOUSNESS: Yes awake, Yes oriented to person, Yes oriented to place and Yes oriented to time HENMT: COMMON NORMALS: normocephalic, atraumatic and hearing grossly normal bilaterally HEAD & SCALP: normocephalic and atraumatic Eye: DIRECT OPHTHALMOSCOPY: No photophobia Resp: COMMON NORMALS: normal respiratory effort, No retractions, No use of accessory muscles and clear to auscultation bilaterally AUSCULTATION: clear to auscultation bilaterally Cardio: COMMON NORMALS: regular rate, regular rhythm and No murmurs present (Cardio) RATE: regular rate RHYTHM: regular rhythm GI: COMMON NORMALS: Soft to palpation and No hepatosplenomegaly present AUSCULTATION: Yes normoactive bowel sounds PALPATION: Yes Soft to palpation, No Tenderness to palpation present (GI), No Guarding due to palpation present (GI) and Yes No hepatosplenomegaly present Extremity: COMMON NORMALS: normal to inspection, capillary refill normal, no clubbing, cyanosis or edema, no calf tenderness and no pedal edema Neuro: SENSORIUM/ORIENTATION: Yes oriented to person, Yes oriented to place and Yes oriented to time Skin: COMMON NORMALS: no rashes or lesions noted GENERAL SKIN EXAM: no rashes or lesions noted Course Vital Signs: Vital signs: Vital Signs Temperature 98.2 F 07/21/23 07:01 Pulse Rate 81 07/21/23 07:01 Blood Pressure 145/89 07/21/23 09:00 Pulse Oximetry 95 07/21/23 09:00 Oxygen Delivery Me thod Room Air 07/21/23 08:06 MDM - Headache Medical Decision Making Patient seen for headache with nausea and vomiting history of similar headaches no history of trauma no. Improved with treatments given discharged home incidental finding of cystitis treated with Macrobid. Use Phenergan as needed along with Tylenol and ibuprofen for recurrent headaches follow-up with primary care if persistent. Medical Records I reviewed the patient's medical records. Lab Data I reviewed the patient's lab results. 07/21/23 07:05 07/21/23 07:05 Laboratory Results WBC 12.67 10^3/uL (3.29-11.43) H 07/21/23 07:05 RBC 4.50 10^6/uL (3.85-5.65) 07/21/23 07:05 Hgb 13.40 g/dL (11.27-16.99) 07/21/23 07:05 Hct 40.5 % (36-47) 07/21/23 07:05 MCV 90.0 fl (85-98) 07/21/23 07:05 MCH 29.8 pg (27-33) 07/21/23 07:05 MCHC 33.1 g/dL (30-55) 07/21/23 07:05 RDW 13.2 % (12.1-15.1) 07/21/23 07:05 Plt Count 305 10^3/cmm (157-399) 07/21/23 07:05 MPV 9.3 fL (7.4-10.4) 07/21/23 07:05 Neut % (Auto) 81.0 % 07/21/23 07:05 Lymph % (Auto) 12.6 % 07/21/23 07:05 [place] % (Auto) 4.7 % 07/21/23 07:05 Eos % (Auto) 0.9 % 07/21/23 07:05 Baso % (Auto) 0.4 % 07/21/23 07:05 Neut # (Auto) 10.26 10^3/uL (1.8-7.7) H 07/21/23 07:05 Lymph # (Auto) 1.6 10^3/uL (0.8-4.8) 07/21/23 07:05 [place] # (Auto) 0.6 10^3/uL (0.2-0.9) 07/21/23 07:05 Eos # (Auto) 0.1 10^3/uL (0.0-0.8) 07/21/23 07:05 Baso # (Auto) 0.1 10^3/uL (0.0-0.1) 07/21/23 07:05 Nucleated RBC % (auto) 0 % 07/21/23 07:05 Nucleated RBCs # 0.0 /100WBC 07/21/23 07:05 Sodium 139 mmol/L (136-145) 07/21/23 07:05 Potassium 4.6 mmol/L (3.5-5.1) 07/21/23 07:05 Chloride 97 mmol/L (98-107) L 07/21/23 07:05 Carbon Dioxide 28 mmol/L (22-29) 07/21/23 07:05 Anion Gap 18.6 (5-19) 07/21/23 07:05 BUN 16 mg/dL (6-20) 07/21/23 07:05 Creatinine 0.7 mg/dL (0.5-0.9) 07/21/23 07:05 GFR Calculation 85.9 mL/min (90-130) L 07/21/23 07:05 Glucose 145 mg/dL (65-115) H 07/21/23 07:05 Calculated Osmolality 292 mOsm/kg (285-295) 07/21/23 07:05 Calcium 9.8 mg/dL (8.5-10.5) 07/21/23 07:05 Total Bilirubin 0.2 mg/dL (0.15-1.2) 07/21/23 07:05 AST 20 U/L (0-32) 07/21/23 07:05 ALT 39 U/L (0-33) H 07/21/23 07:05 Alkaline Phosphatase 65 U/L (35-105) 07/21/23 07:05 Total Protein 7.2 g/dL (6.6-8.7) 07/21/23 07:05 Albumin 4.5 g/dL (3.5-5.2) 07/21/23 07:05 Globulin 2.7 g/dL (1.3-4.6) 07/21/23 07:05 Lipase 35 U/L (13-60) 07/21/23 07:05 Urine Color Yellow (Yellow) 07/21/23 08:40 Urine Appearance Clear (CLEAR) 07/21/23 08:40 Urine pH 7 (5-7) 07/21/23 08:40 Ur Specific [place] 1.005 (1.005-1.030) 07/21/23 08:40 Urine Protein Neg (Negative) 07/21/23 08:40 Urine Glucose (UA) Norm (Normal) 07/21/23 08:40 Urine Ketones Negative (Negative) 07/21/23 08:40 Urine Blood Neg (Negative) 07/21/23 08:40 Urine Nitrate Negative (Negative) 07/21/23 08:40 Urine Bilirubin Neg (Negative) 07/21/23 08:40 Urine Urobilinogen Neg mg/dL (Negative) 07/21/23 08:40 Ur Leukocyte Esterase 1+ (Negative) H 07/21/23 08:40 Urine RBC 0-4 /hpf (0-2) H 07/21/23 08:40 Urine WBC 5-10 /hpf (0-5) H 07/21/23 08:40 Ur Squamous Epith Cells 0-4 /hpf (0-5) H 07/21/23 08:40 Amorphous Sediment Not Reportable 07/21/23 08:40 Urine Bacteria Trace /hpf (NONE) 07/21/23 08:40 Urine Mucus 1+ /hpf 07/21/23 08:40 No radiology studies performed this visit Discharge Plan Discharge Patient Disposition: Home Clinical Impression: Headache, Cystitis Condition: Stable Prescriptions: New promethazine 25 mg tablet 25 mg PO Q6H PRN (Reason: nausea and vomiting/headache) Qty: 20 0RF Macrobid 100 mg capsule 100 mg PO BID 7 Days Qty: 14 0RF Rx Instructions: must administer with a meal/food No Action ezetimibe 10 mg tablet 10 mg PO BEDTIME levothyroxine 100 mcg capsule 100 mcg PO QAM lisinopril 5 mg tablet 5 mg PO QAM desvenlafaxine succinate [Pristiq] 100 mg tablet extended release 24 hr 100 mg PO QAM Qty: 30 3RF hydroxyzine HCl 25 mg tablet 50 mg PO BID PRN (Reason: Itching) Qty: 90 3RF doxepin 25 mg capsule 25 - 50 mg PO BEDTIME 30 Days Qty: 30 3RF cetirizine [Zyrtec] 10 mg Tablet 10 mg PO BEDTIME metformin 500 mg tablet extended release 24 hr 500 mg PO BID multivitamin Tablet 1 tab PO QAM magnesium 250 mg Tablet 250 mg PO QAM primidone 50 mg tablet 75 mg PO BEDTIME ondansetron 4 mg tablet,disintegrating 4 mg PO Q8H PRN (Reason: Nausea) albuterol sulfate [Ventolin HFA] 90 mcg/actuation HFA aerosol inhaler 1 inh inhalation Q6H PRN (Reason: shortness of breath or wheezing) Qty: 6.7 0RF tizanidine 4 mg tablet 4 mg PO Q6H PRN (Reason: muscle spasticity) Qty: 20 0RF Rx Instructions: do not exceed 3 doses per 24 hrs prednisone 20 mg tablet 20 mg PO TID Qty: 15 0RF Rx Instructions: 1 p.o. 3 times daily x3 days, 1 p.o. twice daily x2 days, 1 p.o. daily x2 days diclofenac sodium 75 mg tablet,delayed release (DR/EC) 75 mg PO Q12H PRN (Reason: pain) Qty: 20 0RF oxycodone-acetaminophen [Percocet] 7.5-325 mg tablet 1 tab PO Q8H PRN (Reason: pain) Qty: 14 0RF methocarbamol 500 mg tablet 500 mg PO Q8H PRN (Reason: Muscle Spasm) aripiprazole 15 mg tablet 15 mg PO QAM Discharge Orders: Discharge ED (Routine); Ordered 07/21/23 Ordered By: George Arceo Referrals: Dimple Palumbo PA-C [Primary Care Provider] - Discharge Diet: Usual diet Discharge Activity: Increase activity as tolerated Patient Instructions: Opioid Safety, Pain Management Activity Restrictions/Additional Instructions: Thank you for choosing [facility] for your healthcare needs today. Please realize this is an emergency room and that we are providing you with a medical screening exam and this may not be complete and all inclusive of all the testing and or work up that you may need to determine your ailment or severity of your illness. It is very important that you follow up as instructed or that you return to the Emergency Department should you have concerns or if your condition changes or worsens in any way. Stand Alone Forms: Work/School Release Coding Level of Care Code ED [employer] Mach[employer] Supervisor for Kerri Celis
[2023-07-21 07:42] LABS: Alanine Aminotransferase 39 U/L (0-33); Albumin Level 4.5 g/dL (3.5-5.2); Alkaline Phosphatase 65 U/L (35-105); Anion Gap 18.6 (5-19); Aspartate Amino Transferase 20 U/L (0-32); Blood Urea Nitrogen 16 mg/dL (6-20); Calcium 9.8 mg/dL (8.5-10.5); Carbon Dioxide 28 mmol/L (22-29); Chloride 97 mmol/L (98-107); Globulin 2.7 g/dL (1.3-4.6); Glomerular Filtration Rate 85.9 mL/min (90-130); Glucose 145 mg/dL (65-115); Lipase 35 U/L (13-60); Osmolality Calculated 292 mOsm/kg (285-295); Potassium 4.6 mmol/L (3.5-5.1); Sodium 139 mmol/L (136-145); Total Bilirubin 0.2 mg/dL (0.15-1.2); Total Protein 7.2 g/dL (6.6-8.7)
[2023-07-21 08:06] VITALS: BP 148/62; O2SAT 98
[2023-07-21 09:00] VITALS: BP 145/89; O2SAT 95
[2023-07-21 09:03] LABS: Urine Appearance Clear (CLEAR); Urine Color Yellow (Yellow)
[2023-07-21 09:04] LABS: Add Urine Culture? No; Add Urine Microscopic? YES; Bacteria Urine TRACE /hpf; Bilirubin Urine Neg (Negative); Blood Urine Neg (Negative); Glucose Urine UA Norm (Normal); Ketones Urine Negative (Negative); Leukocyte Esterase Urine 1+ (Negative); Mucus Urine 1+ /hpf; Nitrate Urine Negative (Negative); Protein Urine Neg (Negative); RBC Urine 0-4 /hpf (0-2); Specific Gravity, Urine 1.005 (1.005-1.030); Squamous Epithelial Cell Urine 0-4 /hpf (0-5); Urobilinogen Urine Neg (Negative); pH Urine 7 (5-7)
== END 2023-07-21 10:11 | disposition home or self-care (01) ==
PROVIDERS: Emergency Provider Family Medicine; PCP Physician Assistant
DX: R51.9 Headache, unspecified (principal); N30.90 Cystitis, unspecified without hematuria; Z79.84 Long term (current) use of oral hypoglycemic drugs
CPT/HCPCS: 80053; 81001; 83690; 85025; 96361; 96372; 96374; 96375; 99284; J1885; J2405; J2550; J7030

== ENCOUNTER 2023-08-26 05:29 | Emergency (ER) | payer OTHER, SELFPAY ==
--- NOTE | 2023-08-26 05:10 | ECG_ITS ---
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 Measurements Intervals [place] Rate: 70 P: 9 WI: 134 QRS: -11 QRSD: 85 T: 45 QT: 398 QTc: 429 Interpretive Statements SINUS RHYTHM WITH OCCASIONAL SUPRAVENTRICULAR PREMATURE COMPLEXES LOW QRS VOLTAGE IN PRECORDIAL LEADS [QRS DEFLECTION < 1.0 mV IN CHEST LEADS] POSSIBLE RIGHT VENTRICULAR CONDUCTION DELAY [RSR (QR) IN V1/V2] Compared to ECG 07/20/2023 13:02:25 Low QRS voltage now present Electronically Signed On 08-26-2023 23:03:59 CDT by Kiah Garcia M.D. [id number] f
[2023-08-26 05:33] VITALS: BP 139/74; PULSE 78; RESP 16; TEMP 36.6; O2SAT 95; BMI 43.2
[2023-08-26] MEDS: dexamethasone 10 mg/mL INJ IM (05:45)
[2023-08-26] MEDS: ketorolac 30 mg/mL INJ IVP (05:47)
[2023-08-26] MEDS: orphenadrine 30 mg/mL Inj 2 mL 60 MG IM (05:48)
[2023-08-26 05:52] VITALS: BP 133/65; PULSE 78; O2SAT 96
--- NOTE | 2023-08-26 05:52 | ED_ITS ---
HPI - Back Pain/Injury General: Chief Complaint: Back Pain/Injury Stated Complaint: pain in neck and shoulder numb tingling Time Seen by Provider: 08/26/23 05:33 Source: patient Mode of arrival: ambulatory History of Present Illness: 58-year-old female presents emergency ro om with complaints of neck and arm pain. She been emergency room several times in the last 6 weeks for back pain. No associated trauma or injury no new injury since last time she was seen. She was seen by Dr. Hammad Wyatt and [place] also sees a pain clinic there. She has had an MRI and there is scheduling cervical epidural. That evidently is s cheduled for September 03. She has not previously had neck surgery or intervention. Onset (ago): month(s) Timing: intermittent Quality: sharp Radiation: other (Left arm and shoulder) Exacerbating factors: movement Associated symptoms: Deny abdominal pain, arthralgias, chills, change in bowel habits, difficulty walking, dysuria, fatigue, fecal incontinence, fever(s), hematuria, myalgias, nausea, numbness, syncope, tingling/numbness/burning, urinary frequency, urinary urgency, vomiting or weakness Treatments prior to arrival: NSAIDS, other medications (Muscle relaxer) and prescription analgesics Review of Systems Const: Denies: fever(s), chills or fatigue Card: Denies: chest pain or syncope Resp: Denies: dyspnea GI: Denies: abdominal pain, nausea, vomiting, fecal incontinence or change in bowel habits : Denies: dysuria, urinary frequency, urinary urgency or hematuria Musc: Denies: neck pain or back pain Skin/Breast: Denies: rash Neuro: Denies: difficulty walking PFS ED PFSH: Medical History Anticipatory grief Psychiatric care Insomnia BENITO on CPAP Major depressive disorder, recurrent, moderate Surgical History H/O: hysterectomy H/O tubal ligation H/O rotator cuff surgery Family History Sister Ovarian cancer Diabetes Stroke TIA Brother Diabetes Hypertension Mother Diabetes Father Stroke Grandmother Stroke Paternal Other Stomach cancer Denies family history of Colon cancer Heart disease Hyperlipidemia Breast cancer Uterine cancer Thyroid disease Physical Exam Const: COMMON NORMALS: no acute distress GENERAL APPEARANCE: cooperative and comfortable ORIENTATION/CONSCIOUSNESS: Yes awake, Yes oriented to person, Yes oriented to place and Yes oriented to time HENMT: COMMON NORMALS: normocephalic, atraumatic and hearing grossly normal bilaterally HEAD & SCALP: normocephalic and atraumatic Resp: COMMON NORMALS: normal respiratory effort, No retractions, No use of accessory muscles and clear to auscultation bilaterally AUSCULTATION: clear to auscultation bilaterally Cardio: COMMON NORMALS: regular rate, regular rhythm and No murmurs present (Cardio) RATE: regular rate RHYTHM: regular rhythm Extremity: COMMON NORMALS: normal to inspection, capillary refill normal, no clubbing, cyanosis or edema, no calf tenderness and no pedal edema Neuro: SENSORIUM/ORIENTATION: Yes oriented to person, Yes oriented to place and Yes oriented to time Skin: COMMON NORMALS: no rashes or lesions noted GENERAL SKIN EXAM: no rashes or lesions noted Course Vital Signs: Vital signs: Vital Signs Temperature 97.9 F 08/26/23 05:33 Pulse Rate 76 08/26/23 06:59 Respiratory Rate 18 08/26/23 06:59 Blood Pressure 133/65 08/26/23 05:52 Pulse Oximetry 93 08/26/23 06:59 Oxygen Delivery Me thod Room Air 08/26/23 05:33 MDM - Back Pain/Injury Medical Decision Making Improved with medications given. No recent trauma no further imaging was done patient has established diagnosis is awaiting definitive procedure through the pain clinic. At this point she is only been using Tylenol and ibuprofen at home. Given number of visits she is hide will start her on Lyrica 75 1 twice a day. She received prednisone today can start oral prednisone taper tomorrow also give her prescriptions for diclofenac and tizanidine to use as needed follow-up through the pain clinic. Medical Records I reviewed the patient's medical records. No radiology studies performed this visit Discharge Plan Discharge Patient Disposition: Home Clinical Impression: Cervical radiculopathy Condition: Stable Prescriptions: New Lyrica 75 mg capsule 75 mg PO BID Qty: 60 0RF diclofenac sodium 75 mg tablet,delayed release (DR/EC) 75 mg PO Q12H PRN (Reason: pain) Qty: 20 0RF tizanidine 4 mg tablet 4 mg PO Q6H PRN (Reason: muscle spasticity) Qty: 20 0RF Rx Instructions: do not exceed 3 doses per 24 hrs prednisone 20 mg tablet 20 mg PO TID Qty: 15 0RF Rx Instructions: 1 p.o. 3 times daily x3 days, 1 p.o. twice daily x2 days, 1 p.o. daily x2 days Discontinued tizanidine 4 mg tablet 4 mg PO Q6H PRN (Reason: muscle spasticity) Qty: 20 0RF Rx Instructions: do not exceed 3 doses per 24 hrs prednisone 20 mg tablet 20 mg PO TID Qty: 15 0RF Rx Instructions: 1 p.o. 3 times daily x3 days, 1 p.o. twice daily x2 days, 1 p.o. daily x2 days diclofenac sodium 75 mg tablet,delayed release (DR/EC) 75 mg PO Q12H PRN (Reason: pain) Qty: 20 0RF oxycodone-acetaminophen [Percocet] 7.5-325 mg tablet 1 tab PO Q8H PRN (Reason: pain) Qty: 14 0RF methocarbamol 500 mg tablet 500 mg PO Q8H PRN (Reason: Muscle Spasm) No Action ezetimibe 10 mg tablet 10 mg PO BEDTIME levothyroxine 100 mcg capsule 100 mcg PO QAM lisinopril 5 mg tablet 5 mg PO QAM desvenlafaxine succinate [Pristiq] 100 mg tablet extended release 24 hr 100 mg PO QAM Qty: 30 3RF doxepin 25 mg capsule 25 - 50 mg PO BEDTIME 30 Days Qty: 30 3RF hydroxyzine HCl 25 mg tablet 50 mg PO BID PRN (Reason: Itching) Qty: 90 3RF cetirizine [Zyrtec] 10 mg Tablet 10 mg PO BEDTIME metformin 500 mg tablet extended release 24 hr 500 mg PO BID multivitamin Tablet 1 tab PO QAM magnesium 250 mg Tablet 250 mg PO QAM primidone 50 mg tablet 75 mg PO BEDTIME ondansetron 4 mg tablet,disintegrating 4 mg PO Q8H PRN (Reason: Nausea) albuterol sulfate [Ventolin HFA] 90 mcg/actuation HFA aerosol inhaler 1 inh inhalation Q6H PRN (Reason: shortness of breath or wheezing) Qty: 6.7 0RF aripiprazole 15 mg tablet 15 mg PO QAM promethazine 25 mg tablet 25 mg PO Q6H PRN (Reason: nausea and vomiting/headache) Qty: 20 0RF Discharge Orders: Discharge ED (Routine); Ordered 08/26/23 Ordered By: George Arceo Referrals: Dimple Palumbo PA-C [Primary Care Provider] - Patient Instructions: Opioid Safety, Pain Management Activity Restrictions/Additional Instructions: Thank you for choosing [facility] for your healthcare needs today. Please realize this is an emergency room and that we are providing you with a medical screening exam and this may not be complete and all inclusive of all the testing and or work up that you may need to determine your ailment or severity of your illness. It is very important that you follow up as instructed or that you return to the Emergency Department should you have concerns or if your condition changes or worsens in any way. You are seen today for neck and arm pain. Recommend you continue to follow-up with the pain clinic as scheduled. Regarding Lyrica which is a maintenance m edication 1 pill twice a day to help prevent onset of pain. You were also given IV prednisone today start oral prednisone taper tomorrow. You can use diclofenac and tizanidine as needed for discomfort. If you are using diclofenac do not take ibuprofen or Aleve. Coding Level of Care Code ED Clinic Licensed Practical Nurse for Kerri Celis
[2023-08-26 06:59] VITALS: PULSE 76; RESP 18; O2SAT 93
== END 2023-08-26 07:00 | disposition home or self-care (01) ==
PROVIDERS: Emergency Provider Family Medicine; PCP Physician Assistant
DX: M54.12 Radiculopathy, cervical region (principal); Z79.84 Long term (current) use of oral hypoglycemic drugs
CPT/HCPCS: 93005; 96372; 96374; 99284; J1100; J1885; J2360

== ENCOUNTER → 2024-07-02 11:01 | Outpatient (BNVA) | payer OTHER, SELFPAY | PROVIDERS: PCP Physician Assistant; Visit Provider Psychiatry & Neurology Psychiatry | DX: Z79.899 Other long term (current) drug therapy (principal) | CPT/HCPCS: 80053; 80061; 83036; 84443; 85025 ==

== ENCOUNTER 2024-07-11 09:22 | Emergency (ER) | payer OTHER, SELFPAY ==
[2024-07-11 09:35] VITALS: BMI 42.3
[2024-07-11 09:37] VITALS: BP 133/68; PULSE 77; RESP 18; TEMP 36.6; O2SAT 95
[2024-07-11] MEDS: HYDROcodone-acetaminophen 5-325 mg Tablet 1 TAB PO (10:07)
[2024-07-11] MEDS: acetaminophen 325 mg Tablet 650 MG PO (10:07)
[2024-07-11] MEDS: ondansetron 4 MG Tablet PO (10:08)
--- NOTE | 2024-07-11 10:33 | W.ED.EXTPRO ---
HPI - Extremity Problem General: Chief complaint: Extremity Problem,Nontraumatic Stated complaint: pain in rt & lft knees Time Seen by Provider: 07/11/24 09:43 History of Present Illness: 59-year-old female who states she was helping clear out a relatives house 2 days ago. Patient states she was moving a lot of things out of the attic going down a bunch of stairs and was also moving things out of a basement making her climb stairs. She states she worked pretty much all day on moving items. She states her knees began to hurt bilaterally that afternoon and then that night they were aching pretty good. Patient states she has had episodes like this before. She states she usually just takes ibuprofen and Tylenol and uses Voltaren cream. She did that all day yesterday and this morning she is still having pain. She states it is worse when she tries to bend the knee or walk but she is ambulatory. She notes that she was post to go to work today and called and said that she could not come in and so she came here to be evaluated. Patient has no neurologic deficits. She has good distal pulses, sensory intact. There is no swelling, warmth or redness to the knees. Associated symptoms: Deny chest pain, fever(s) or rash Related Data Home Medications Medication Instructions Recorded Confirmed levothyroxine 100 mcg capsule 100 mcg PO QAM 09/02/19 07/02/24 lisinopril 5 mg tablet 5 mg PO QAM 09/02/19 07/02/24 ezetimibe 10 mg tablet 10 mg PO BEDTIME 01/08/20 07/02/24 cetirizine 10 mg tablet (Zyrtec) 10 mg PO BEDTIME 02/21/20 07/02/24 multivitamin 1 tab PO QAM 12/25/22 07/02/24 primidone 50 mg tablet 50 mg PO BID 04/05/23 07/02/24 antiarthritic combination no.2 900 900 mg PO BID 02/11/24 07/02/24 mg tablet (glucosamine-chondroitin) sitagliptin phosphate 100 mg 100 mg PO DAILY 02/11/24 07/02/24 tablet (Januvia) cyanocobalamin (vitamin B-12) 1,000 mcg PO DAILY 05/30/24 07/02/24 1,000 mcg tablet (Vitamin B-12) magnesium oxide 400 mg PO QAM 05/30/24 07/02/24 meloxicam 7.5 mg tablet 7.5 mg PO DAILY 05/30/24 07/02/24 ondansetron 4 mg disintegrating See Rx Instructions .Route 05/30/24 07/02/24 tablet .COMPLEX PRN Nausea Previous Rx's Medication Instructions Recorded albuterol sulfate 90 mcg/actuation 1 inh inhalation Q6H PRN shortness 04/05/23 aerosol inhaler (Ventolin HFA) of breath or wheezing #6.7 grams aripiprazole 15 mg tablet 15 mg PO QAM #30 tabs 07/02/24 desvenlafaxine succinate 100 mg 100 mg PO QAM #30 tabs 07/02/24 tablet,extended release 24 hr (Pristiq) doxepin 25 mg capsule See Rx Instructions .Route 07/02/24 .COMPLEX #60 caps hydroxyzine HCl 25 mg tablet 25 mg PO BID PRN anxiety or sleep 07/02/24 #60 tabs hydrocodone 5 mg-acetaminophen 325 1 tab PO Q6H PRN pain 3 days #8 07/11/24 mg tablet tabs methylprednisolone 4 mg tablets in See Rx Instructions PO .COMPLEX 07/11/24 a dose pack (Medrol (Salvador)) #21 ea Allergies Allergy/AdvReac Type Severity Reaction Status Date / Time carisoprodol [From Soma] Allergy Unknown unknown Verified 05/30/24 12:05 rofecoxib [From Vioxx] Allergy Unknown UNKNOWN Verified 05/30/24 12:05 Erglloh-KVD-ZnN Reductase Allergy Unknown unknown Verified 05/30/24 12:05 Inhibitor [Ccpforf-Wpb-Crd Reductase Inhibitor] sumatriptan [From Imitrex] Allergy Unknown unknown Verified 05/30/24 12:05 Review of Systems Const: Denies: fever(s) or body aches Eyes: Denies: change in vision or eye discomfort ENMT: Denies: throat pain or nasal congestion Card: Denies: chest pain or lightheadedness Resp: Denies: dyspnea or wheezing GI: Denies: abdominal pain or nausea : Denies: difficulty voiding or dysuria Musc: Denies: neck pain or extremity pain Skin/Breast: Denies: rash or sores Neuro: Denies: weakness in extremities or sensory changes PFSH ED PFSH: Medical History Anticipatory grief Psychiatric care Insomnia BENITO on CPAP Major depressive disorder, recurrent, moderate Surgical History H/O: hysterectomy H/O tubal ligation H/O rotator cuff surgery Family History Sister Ovarian cancer Diabetes Stroke TIA Brother Diabetes Hypertension Mother Diabetes Father Stroke Grandmother Stroke Paternal Other Stomach cancer Denies family history of Colon cancer Heart disease Hyperlipidemia Breast cancer Uterine cancer Thyroid disease Social History Smoking and tobacco/nicotine status: never used tobacco/nicotine Physical Exam Const: COMMON NORMALS: no acute distress, patient oriented x3 and alert GENERAL APPEARANCE: cooperative HENMT: COMMON NORMALS: normocephalic and atraumatic HEAD & SCALP: normocephalic and atraumatic Eye: COMMON NORMALS: Equal, round and reactive pupils present and EOMs intact bilaterally PUPIL: Yes Equal, round and reactive pupils present Neck/C-Spine: COMMON NORMALS: full ROM and supple Chest: COMMONS NORMALS: normal inspection of the chest Resp: COMMON NORMALS: normal respiratory effort and clear to auscultation bilaterally AUSCULTATION: clear to auscultation bilaterally Cardio: COMMON NORMALS: regular rate and regular rhythm RATE: regular rate RHYTHM: regular rhythm GI: COMMON NORMALS: Normal to inspection, nondistended, normoactive bowel sounds present and non-tender : COMMON NORMALS: Yes no CVA tenderness BLADDER/KIDNEY EXAM: Yes no CVA tenderness Back/Pelvis: COMMON NORMALS: no CVA tenderness and thoracic and lumbar spine normal to inspection Extremity: COMMON NORMALS: normal to inspection, full ROM and no pedal edema NARRATIVE EXTREMITY EXAM: Patient knees are not swollen, no redness, no warmth. Patient has full range of motion but some discomfort with flexion. Neuro: COMMON NORMALS: patient oriented x3 and no focal motor deficits SENSORIUM/ORIENTATION: Yes alert Psych: COMMON NORMALS: cooperative Skin: COMMON NORMALS: no rashes or lesions noted GENERAL SKIN EXAM: no rashes or lesions noted Course Vital Signs: Vital signs: Vital Signs Temperature 97.8 F 07/11/24 09:37 Pulse Rate 77 01/26/25 09:37 Respiratory Rate 18 07/11/24 09:37 Blood Pressure 133/68 07/11/24 09:37 Pulse Oximetry 95 07/11/24 09:37 Oxygen Delivery Me thod Room Air 07/11/24 09:37 MDM - Extremity (Nontraumatic) Medical Decision Making Patient symptoms consistent with most likely osteoarthritis or overexertion. Patient pain started after going up and down stairs all day. Has been lingering for 2 days now. No positive physical exam findings except for a little discomfort with flexion. Patient is ambulatory. Will put patient on short course of steroid and provide a few days of pain medication. Have advised she follow-up with her primary care physician to discuss follow-up with an orthopedist. No radiology studies performed this visit Discharge Plan Discharge Patient Disposition: Home Clinical Impression: Bilateral knee pain Qualifiers: Chronicity: acute Qualified Code(s): M25.561 - Pain in right knee Condition: Stable Prescriptions: New methylprednisolone [Medrol (Salvador)] 4 mg tablets,dose pack See Rx Instructions .ROUTE .COMPLEX Qty: 21 0RF Rx Instructions: for 6 days hydrocodone-acetaminophen 5-325 mg tablet 1 tab PO Q6H PRN (Reason: pain) 3 Days Qty: 8 0RF No Action ezetimibe 10 mg tablet 10 mg PO BEDTIME levothyroxine 100 mcg capsule 100 mcg PO QAM lisinopril 5 mg tablet 5 mg PO QAM Januvia 100 mg tablet 100 mg PO DAILY glucosamine-chondroitin 900 mg tablet 900 mg PO BID aripiprazole 15 mg tablet 15 mg PO QAM Qty: 30 5RF desvenlafaxine succinate [Pristiq] 100 mg tablet extended release 24 hr 100 mg PO QAM Qty: 30 5RF doxepin 25 mg capsule See Rx Instructions .ROUTE .COMPLEX Qty: 60 3RF Dose Instruction: TAKE 1 TO 2 CAPSULES BY MOUTH ONCE DAILY AT BEDTIME Rx Instructions: TAKE 1 TO 2 CAPSULES BY MOUTH ONCE DAILY AT BEDTIME hydroxyzine HCl 25 mg tablet 25 mg PO BID PRN (Reason: anxiety or sleep) Qty: 60 3RF cetirizine [Zyrtec] 10 mg Tablet 10 mg PO BEDTIME multivitamin Tablet 1 tab PO QAM primidone 50 mg tablet 50 mg PO BID albuterol sulfate [Ventolin HFA] 90 mcg/actuation HFA aerosol inhaler 1 inh inhalation Q6H PRN (Reason: shortness of breath or wheezing) Qty: 6.7 0RF cyanocobalamin (vitamin B-12) [Vitamin B-12] 1,000 mcg Tablet 1,000 mcg PO DAILY meloxicam 7.5 mg tablet 7.5 mg PO DAILY ondansetron 4 mg tablet,disintegrating See Rx Instructions .ROUTE .COMPLEX PRN (Reason: Nausea) Rx Instructions: PLACE 1 TABLET BY TRANSLINGUAL ROUTE EVERY 8 HOURS ON TOP OF THE TONGUE WHERE IT WILL DISSOLVE , THEN SWALLOW NEEDED FOR NAUSEA. 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
== END 2024-07-11 11:07 | disposition home or self-care (01) ==
PROVIDERS: Emergency Provider Emergency Medicine; PCP Physician Assistant
DX: M25.561 Pain in right knee (principal)
CPT/HCPCS: 12345; 99283; Q0162

== ENCOUNTER 2024-08-07 10:12 | Emergency (ER) | payer OTHER, SELFPAY ==
--- NOTE | 2024-08-07 10:27 | XRR_ITS ---
PROCEDURE INFORMATION: Exam: XR Chest Exam date and time: 08/07/2024 10:51 AM Age: 59 years old Clinical indication: Cough and fever; Additional info: Fever, cough TECHNIQUE: Imaging protocol: Radiologic exam of the chest. Views: 1 view. COMPARISON: CR XR chest 1V portable [id number] 05/30/2024 1:23 PM FINDINGS: Lungs: Unremarkable. No consolidation. Pleural spaces: Unremarkable. No pleural effusion. No pneumothorax. Heart/Mediastinum: Unremarkable. No cardiomegaly. Bones/joints: No acute osseous abnormality. Metallic pins in the right humeral head unchanged from prior exam. XR/XR chest 1V portable [id number] IMPRESSION: No acute cardiopulmonary abnormality.
[2024-08-07 10:29] VITALS: BP 153/83; PULSE 97; RESP 16; TEMP 36.7; O2SAT 96; BMI 42.3
--- NOTE | 2024-08-07 10:44 | W.ED.URI ---
HPI - URI/Sore Throat General: Chief Complaint: Upper Respiratory Infection Stated Complaint: cough Time Seen by Provider: 08/07/24 10:41 History of Present Illness: 59-year-old female with a history of obesity, diabetes, hypertension, Obstructive sleep apnea on CPAP at night and depression who presents to the emergency room with cough, congestion and bodyaches. Some shortness of breath. She has had a cough for about a week. She has been placed on amoxicillin by her primary care physician for sinusitis. She has had nausea, fatigue, weakness and bodyaches that started yesterday. Related Data Home Medications ?Medication ?Instructions ?Recorded ?Confirmed levothyroxine 100 mcg capsule 100 mcg PO QAM 09/02/19 07/02/24 lisinopril 5 mg tablet 5 mg PO QAM 09/02/19 07/02/24 ezetimibe 10 mg tablet 10 mg PO BEDTIME 01/08/20 07/02/24 cetirizine 10 mg tablet (Zyrtec) 10 mg PO BEDTIME 02/21/20 07/02/24 multivitamin 1 tab PO QAM 12/25/22 07/02/24 primidone 50 mg tablet 50 mg PO BID 04/05/23 07/02/24 antiarthritic combination no.2 900 900 mg PO BID 02/11/24 07/02/24 mg tablet (glucosamine-chondroitin) sitagliptin phosphate 100 mg 100 mg PO DAILY 02/11/24 07/02/24 tablet (Januvia) cyanocobalamin (vitamin B-12) 1,000 mcg PO DAILY 05/30/24 07/02/24 1,000 mcg tablet (Vitamin B-12) magnesium oxide 400 mg PO QAM 05/30/24 07/02/24 meloxicam 7.5 mg tablet 7.5 mg PO DAILY 05/30/24 07/02/24 ondansetron 4 mg disintegrating See Rx Instructions .Route 05/30/24 07/02/24 tablet .COMPLEX PRN Nausea Previous Rx's ?Medication ?Instructions ?Recorded albuterol sulfate 90 mcg/actuation 1 inh inhalation Q6H PRN shortness 04/05/23 aerosol inhaler (Ventolin HFA) of breath or wheezing #6.7 grams aripiprazole 15 mg tablet 15 mg PO QAM #30 tabs 07/02/24 desvenlafaxine succinate 100 mg 100 mg PO QAM #30 tabs 07/02/24 tablet,extended release 24 hr (Pristiq) doxepin 25 mg capsule See Rx Instructions .Route 07/02/24 .COMPLEX #60 caps hydroxyzine HCl 25 mg tablet 25 mg PO BID PRN anxiety or sleep 07/02/24 #60 tabs methylprednisolone 4 mg tablets in See Rx Instructions PO .COMPLEX 07/11/24 a dose pack (Medrol (Salvador)) #21 ea dexamethasone 6 mg tablet 6 mg PO DAILY 5 days #5 tabs 08/07/24 levofloxacin 750 mg tablet 750 mg PO DAILY 7 days #7 tabs 08/07/24 ondansetron 8 mg disintegrating 8 mg PO Q6H #14 tabs 08/07/24 tablet Allergies Allergy/AdvReac Type Severity Reaction Status Date / Time carisoprodol (From Soma) Allergy Unknown unknown Verified 05/30/24 12:05 rofecoxib (From Vioxx) Allergy Unknown UNKNOWN Verified 05/30/24 12:05 Wacqphn-YFO-RyX Reductase Allergy Unknown unknown Verified 05/30/24 12:05 Inhibitor (Fgfnvlh-Swd-Qxz Reductase Inhibitor) sumatriptan (From Imitrex) Allergy Unknown unknown Verified 05/30/24 12:05 Review of Systems Narrative: Constitutional symptoms: Negative except as documented in HPI. Skin symptoms: Negative except as documented in HPI. Eye symptoms: Negative except as documented in HPI. ENMT symptoms: Negative except as documented in HPI. Respiratory symptoms: Negative except as documented in HPI. Cardiovascular symptoms: Negative except as documented in HPI. Gastrointestinal symptoms: Negative except as documented in HPI. Genitourinary symptoms: Negative except as documented in HPI. Musculoskeletal symptoms: Negative except as documented in HPI. Neurologic symptoms: Negative except as documented in HPI. Psychiatric symptoms: Negative except as documented in HPI. Endocrine symptoms: Negative except as documented in HPI. PFSH ED PFSH: Medical History Anticipatory grief Psychiatric care Insomnia BENITO on CPAP Major depressive disorder, recurrent, moderate Surgical History H/O: hysterectomy H/O tubal ligation H/O rotator cuff surgery Family History Sister Ovarian cancer Diabetes Stroke TIA Brother Diabetes Hypertension Mother Diabetes Father Stroke Grandmother Stroke Paternal Other Stomach cancer Denies family history of Colon cancer Heart disease Hyperlipidemia Breast cancer Uterine cancer Thyroid disease Social History Smoking and tobacco/nicotine status: never used tobacco/nicotine Physical Exam Narrative: EXAM NARRATIVE: General: Alert, no acute distress. Skin: Warm, dry. Head: Normocephalic, atraumatic. Neck: Supple, trachea midline. Eye: Extraocular movements are intact. Ears, nose, mouth and throat: mucosa moist. Cardiovascular: Regular, Normal peripheral perfusion. Respiratory: Lungs are clear to auscultation, respirations are non-labored, breath sounds are equal, Symmetrical chest wall expansion. Gastrointestinal: Soft, Nontender, Non distended Musculoskeletal: Normal ROM, no deformity. Neurological: Alert and oriented, No focal neurological deficit observed. Psychiatric: Cooperative, appropriate mood & affect. Course Vital Signs: Vital signs: Vital Signs Temperature 98.0 F 08/07/24 10:29 Pulse Rate 97 08/07/24 10:29 Respiratory Rate 16 08/07/24 10:29 Blood Pressure 153/83 08/07/24 10:29 Pulse Oximetry 96 08/07/24 10:29 Oxygen Delivery Me thod Room Air 08/07/24 10:29 MDM - URI/Sore Throat Medical Decision Making Differential diagnosis for patient with shortness of breath includes but is not limited to and based on the above HPI, review of systems and physical exam: Pneumonia. Bronchitis. Asthma or COPD with acute exacerbation. Acute coronary syndrome / MT. Pulmonary embolism. Anxiety. Congestive heart failure. Viral infections including influenza and Covid-19. Atrial fibrillation. Anxiety. Pleural effusion. Pneumothorax. Orders placed to evaluate differential diagnosis based on the above differential, HPI and physical exam Chest x-ray: No acute process. No infiltrate. No pneumothorax. This was reviewed and interpreted by myself the emergency room physician. I also reviewed the radiology report. Lab Review: Laboratory results were reviewed and interpreted by myself the emergency room physician. No leukocytosis. No anemia. No renal failure. Flu and COVID are negative. I reviewed the patient's medical record. Reexamination: Patient remained stable. No increased work of breathing. No altered mental status. No focal motor deficits. Changing antibiotics and lengthening steroid duration Assessment and plan: Upper respiratory infection - Discharged home - Discussed plan with patient. Answered any questions. - Evaluation and treatment of this problem were appropriate in the emergency setting. Lab Data 08/07/24 11:04 08/07/24 11:04 Radiology Impressions Chest X-Ray 08/07/24 10:27 IMPRESSION: No acute cardiopulmonary abnormality. Laboratory Results WBC 9.87 10^3/uL (3.29-11.43) 08/07/24 11:04 RBC 4.96 10^6/uL (3.85-5.65) 08/07/24 11:04 Hgb 14.60 g/dL (11.27-16.99) 08/07/24 11:04 Hct 45.7 % (36-47) 08/07/24 11:04 MCV 92.1 fl (85-98) 08/07/24 11:04 MCH 29.4 pg (27-33) 08/07/24 11:04 MCHC 31.9 g/dL (30-55) 08/07/24 11:04 RDW 13.7 % (12.1-15.1) 08/07/24 11:04 Plt Count 314 10^3/cmm (157-399) 08/07/24 11:04 MPV 9.6 fL (7.4-10.4) 08/07/24 11:04 Neut % (Auto) 61.6 % 08/07/24 11:04 Lymph % (Auto) 25.8 % 08/07/24 11:04 Taylor % (Auto) 7.6 % 08/07/24 11:04 Eos % (Auto) 4.0 % 08/07/24 11:04 Baso % (Auto) 0.7 % 08/07/24 11:04 Neut # (Auto) 6.08 10^3/uL (1.8-7.7) 08/07/24 11:04 Lymph # (Auto) 2.6 10^3/uL (0.8-4.8) 08/07/24 11:04 Taylor # (Auto) 0.8 10^3/uL (0.2-0.9) 08/07/24 11:04 Eos # (Auto) 0.4 10^3/uL (0.0-0.8) 08/07/24 11:04 Baso # (Auto) 0.1 10^3/uL (0.0-0.1) 08/07/24 11:04 Nucleated RBC % (auto) 0 % 08/07/24 11:04 Nucleated RBCs # 0.0 /100WBC 08/07/24 11:04 Sodium 138 mmol/L (136-145) 08/07/24 11:04 Potassium 4.2 mmol/L (3.5-5.1) 08/07/24 11:04 Chloride 99 mmol/L (98-107) 08/07/24 11:04 Carbon Dioxide 25 mmol/L (22-29) 08/07/24 11:04 Anion Gap 18.2 (5-19) 08/07/24 11:04 BUN 14 mg/dL (6-20) 08/07/24 11:04 Creatinine 0.7 mg/dL (0.5-0.9) 08/07/24 11:04 GFR Calculation 85.6 mL/min (90-130) L 08/07/24 11:04 Glucose 233 mg/dL (65-115) H 08/07/24 11:04 Calculated Osmolality 294 mOsm/kg (285-295) 08/07/24 11:04 Lactic Acid 2.9 mmol/L (0.5-2.2) H 08/07/24 11:04 Calcium 9.4 mg/dL (8.5-10.5) 08/07/24 11:04 Total Bilirubin 0.2 mg/dL (0.15-1.2) 08/07/24 11:04 AST 24 U/L (0-32) 08/07/24 11:04 ALT 38 U/L (0-33) H 08/07/24 11:04 Alkaline Phosphatase 82 U/L (35-105) 08/07/24 11:04 C-Reactive Protein 11.6 mg/L (0.0-4.9) H 08/07/24 11:04 Total Protein 7.1 g/dL (6.6-8.7) 08/07/24 11:04 Albumin 4.2 g/dL (3.5-5.2) 08/07/24 11:04 Globulin 2.9 g/dL (1.3-4.6) 08/07/24 11:04 Procalcitonin 0.05 ng/mL (0-0.5) 08/07/24 11:04 Influenza A (PCR) Negative (Negative) 08/07/24 10:34 Influenza Type B (PCR) Negative (Negative) 08/07/24 10:34 RSV (PCR) Negative (Negative) 08/07/24 10:34 SARS-CoV-2 (PCR) Negative (Negative) 08/07/24 10:34 All radiology interpretation(s) finalized by discharge Discharge Plan Discharge Patient Disposition: Home Clinical Impression: Acute upper respiratory infection Condition: Stable Prescriptions: New dexamethasone 6 mg tablet 6 mg PO DAILY 5 Days Qty: 5 0RF levofloxacin 750 mg tablet 750 mg PO DAILY 7 Days Qty: 7 0RF ondansetron 8 mg tablet,disintegrating 8 mg PO Q6H Qty: 14 0RF Rx Instructions: Take 1/2-1 tab every 6 hours as needed for nausea and vomiting No Action ezetimibe 10 mg tablet 10 mg PO BEDTIME levothyroxine 100 mcg capsule 100 mcg PO QAM lisinopril 5 mg tablet 5 mg PO QAM Januvia 100 mg tablet 100 mg PO DAILY glucosamine-chondroitin 900 mg tablet 900 mg PO BID aripiprazole 15 mg tablet 15 mg PO QAM Qty: 30 5RF desvenlafaxine succinate [Pristiq] 100 mg tablet extended release 24 hr 100 mg PO QAM Qty: 30 5RF doxepin 25 mg capsule See Rx Instructions .ROUTE .COMPLEX Qty: 60 3RF Dose Instruction: TAKE 1 TO 2 CAPSULES BY MOUTH ONCE DAILY AT BEDTIME Rx Instructions: TAKE 1 TO 2 CAPSULES BY MOUTH ONCE DAILY AT BEDTIME hydroxyzine HCl 25 mg tablet 25 mg PO BID PRN (Reason: anxiety or sleep) Qty: 60 3RF cetirizine [Zyrtec] 10 mg Tablet 10 mg PO BEDTIME methylprednisolone [Medrol (Salvador)] 4 mg tablets,dose pack See Rx Instructions .ROUTE .COMPLEX Qty: 21 0RF Rx Instructions: for 6 days multivitamin Tablet 1 tab PO QAM primidone 50 mg tablet 50 mg PO BID albuterol sulfate [Ventolin HFA] 90 mcg/actuation HFA aerosol inhaler 1 inh inhalation Q6H PRN (Reason: shortness of breath or wheezing) Qty: 6.7 0RF cyanocobalamin (vitamin B-12) [Vitamin B-12] 1,000 mcg Tablet 1,000 mcg PO DAILY meloxicam 7.5 mg tablet 7.5 mg PO DAILY ondansetron 4 mg tablet,disintegrating See Rx Instructions .ROUTE .COMPLEX PRN (Reason: Nausea) Rx Instructions: PLACE 1 TABLET BY TRANSLINGUAL ROUTE EVERY 8 HOURS ON TOP OF THE TONGUE WHERE IT WILL DISSOLVE , THEN SWALLOW NEEDED FOR NAUSEA. magnesium oxide 400 mg magnesium Tablet 400 mg PO QAM Discharge Orders: Discharge ED (Routine); Ordered 08/07/24 Ordered By: Aleta Lara Referrals: Dimple Palumbo PA-C [Primary Care Provider] - Discharge Diet: Usual diet Discharge Activity: Increase activity as tolerated Patient Instructions: Opioid Safety, Pain Management Activity Restrictions/Additional Instructions: Discontinue amoxicillin and start the Levaquin that is been written. Also start new steroid burst. Thank you for choosing [facility] for your healthcare needs today. Please realize this is an emergency room and that we are providing you with a medical screening exam and this may not be complete and all inclusive of all the testing and or work up that you may need to determine your ailment or severity of your illness. You have been screened and evaluated and felt safe for discharge. Health conditions do change or evolve sometimes and as such it is important that you follow up with your Primary Doctor to be re checked, 3-5 days is a general good time frame for follow up. 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
[2024-08-07 11:15] LABS: Influenza A NEGATIVE (Negative); Influenza B NEGATIVE (Negative); Respiratory Syncytial Virus Ce NEGATIVE (Negative); SARS-CoV-2 PCR NEGATIVE (Negative)
[2024-08-07 11:20] LABS: Basophils # 0.1 10^3/uL (0.0-0.1); Basophils % 0.7 %; Eosinophils # 0.4 10^3/uL (0.0-0.8); Hematocrit 45.7 % (36-47); Lymphocytes # 2.6 10^3/uL (0.8-4.8); Lymphocytes % 25.8 %; Mean Corpuscular HGB Conc 31.9 g/dL (30-55); Mean Corpuscular Hemoglobin 29.4 pg (27-33); Mean Corpuscular Volume 92.1 fl (85-98); Mean Platelet Volume 9.6 fL (7.4-10.4); Monocytes # 0.8 10^3/uL (0.2-0.9); Monocytes % 7.6 %; Neutrophils # 6.08 10^3/uL (1.8-7.7); Neutrophils % 61.6 %; Nucleated Red Blood Cells % 0 %; Platelet Count 314 10^3/cmm (157-399); Red Blood Count 4.96 10^6/uL (3.85-5.65); Red Cell Distribution Width 13.7 % (12.1-15.1); White Blood Count 9.87 10^3/uL (3.29-11.43)
[2024-08-07 11:41] LABS: Alanine Aminotransferase 38 U/L (0-33); Albumin Level 4.2 g/dL (3.5-5.2); Alkaline Phosphatase 82 U/L (35-105); Anion Gap 18.2 (5-19); Aspartate Amino Transferase 24 U/L (0-32); Blood Urea Nitrogen 14 mg/dL (6-20); C Reactive Protein 11.6 mg/L (0.0-4.9); Calcium 9.4 mg/dL (8.5-10.5); Carbon Dioxide 25 mmol/L (22-29); Chloride 99 mmol/L (98-107); Creatinine Clr Calc Pharmacy 117.4111; Globulin 2.9 g/dL (1.3-4.6); Glomerular Filtration Rate 85.6 mL/min (90-130); Glucose 233 mg/dL (65-115); Osmolality Calculated 294 mOsm/kg (285-295); Potassium 4.2 mmol/L (3.5-5.1); Sodium 138 mmol/L (136-145); Total Bilirubin 0.2 mg/dL (0.15-1.2); Total Protein 7.1 g/dL (6.6-8.7)
[2024-08-07 11:42] LABS: Lactic Sepsis W/Reflex 2.9 mmol/L (0.5-2.2)
[2024-08-07 11:45] LABS: Procalcitonin 0.05 ng/mL (0-0.5)
[2024-08-07 12:20] LABS: Bilirubin Urine Negative (Negative); Blood Urine Negative (Negative); Glucose Urine UA Negative (Normal); Ketones Urine Trace (Negative); Leukocyte Esterase Urine Negative (Negative); Nitrate Urine Negative (Negative); Protein Urine Trace (Negative); Urine Appearance Cloudy (CLEAR); Urine Color Dark Yellow (Yellow)
[2024-08-07 12:37] VITALS: BP 142/83; PULSE 92; O2SAT 96
[2024-08-07 12:44] LABS: Bacteria Urine 1+ /hpf; Specific Gravity, Urine 1.037 (1.005-1.030); UA Manual Slide Review YES; UA Slide Review UA Slide Review Perf; WBC Urine 0-4 /hpf (0-5)
[2024-08-07 12:45] LABS: Amorphous Sediment Urine 4+ /hpf
[2024-08-07 13:01] LABS: Reflex Lactate Order REFLEX LACTIC ORDERD
== END 2024-08-07 12:39 | disposition home or self-care (01) ==
PROVIDERS: Emergency Provider Emergency Medicine; PCP Physician Assistant
DX: J06.9 Acute upper respiratory infection, unspecified (principal); Z11.52 Encounter for screening for COVID-19; E11.9 Type 2 diabetes mellitus without complications; I10 Essential (primary) hypertension
CPT/HCPCS: 36415; 71045; 80053; 81001; 83605; 84145; 85025; 86140; 87040; 87637; 99283

== ENCOUNTER 2024-09-21 21:40 | Emergency (ER) | payer OTHER, SELFPAY ==
--- NOTE | 2024-09-21 21:42 | XRR_ITS ---
PROCEDURE INFORMATION: Exam: XR Left Knee Exam date and time: 09/21/2024 10:04 PM Age: 59 years old Clinical indication: Pain; Left; This is a lt knee not right; Additional info: Knee pain TECHNIQUE: Imaging protocol: Radiologic exam of the left knee. Views: 3 views. COMPARISON: No relevant prior studies available. FINDINGS: Bones/joints: [id number] degenerative changes of the knee joint. Deformity of the proximal fibular which is likely chronic. No definite acute fracture or traumatic malalignment. No knee joint effusion. Soft tissues: Normal. XR/XR knee LT 3V* [id number] IMPRESSION: As above.
[2024-09-21 21:53] VITALS: BP 149/83; PULSE 80; RESP 16; TEMP 36.6; O2SAT 97; BMI 42.3
[2024-09-21 22:00] VITALS: BP 149/83; PULSE 80; O2SAT 97
[2024-09-21] MEDS: dexamethasone 10 mg/mL INJ IM (23:22)
--- NOTE | 2024-09-21 23:35 | W.ED.EXTPRO ---
HPI - Extremity Problem General: Chief complaint: Extremity Injury, Lower Stated complaint: L knee pain Time Seen by Provider: 09/21/24 22:24 Source: patient Mode of arrival: ambulatory Limitations: no limitations History of Present Illness: Patient is a 59-year-old female who presents the emergency department complaining of left knee pain for the past couple days. No inciting injuries reported, however she does note she has felt popping and cracking to the left knee and pain has steadily worsened. Reports history of meniscal repair to the right knee, states that this feels identical. Denies known history of arthritis. No previous surgeries to the left knee. No reported trauma. She has been taking ibuprofen Tylenol but no relief. States that she has also been using compression but this has not been helping. No other symptoms reported at this time. States the pain radiates somewhat proximally. MD Complaint: joint pain Onset (ago): day(s) Pain Consistency: constant Location: left and knee Radiation: proximal Exacerbating factors: range of motion, weight bearing and walking Associated symptoms: Deny chest pain, fever(s) or rash Related Data Home Medications ?Medication ?Instructions ?Recorded ?Confirmed levothyroxine 100 mcg capsule 100 mcg PO QAM 09/02/19 07/02/24 lisinopril 5 mg tablet 5 mg PO QAM 09/02/19 07/02/24 ezetimibe 10 mg tablet 10 mg PO BEDTIME 01/08/20 07/02/24 cetirizine 10 mg tablet (Zyrtec) 10 mg PO BEDTIME 02/21/20 07/02/24 multivitamin 1 tab PO QAM 12/25/22 07/02/24 primidone 50 mg tablet 50 mg PO BID 04/05/23 07/02/24 antiarthritic combination no.2 900 900 mg PO BID 02/11/24 07/02/24 mg tablet (glucosamine-chondroitin) sitagliptin phosphate 100 mg 100 mg PO DAILY 02/11/24 07/02/24 tablet (Januvia) cyanocobalamin (vitamin B-12) 1,000 mcg PO DAILY 05/30/24 07/02/24 1,000 mcg tablet (Vitamin B-12) magnesium oxide 400 mg PO QAM 05/30/24 07/02/24 meloxicam 7.5 mg tablet 7.5 mg PO DAILY 05/30/24 07/02/24 ondansetron 4 mg disintegrating See Rx Instructions .Route 05/30/24 07/02/24 tablet .COMPLEX PRN Nausea Previous Rx's ?Medication ?Instructions ?Recorded albuterol sulfate 90 mcg/actuation 1 inh inhalation Q6H PRN shortness 04/05/23 aerosol inhaler (Ventolin HFA) of breath or wheezing #6.7 grams aripiprazole 15 mg tablet 15 mg PO QAM #30 tabs 07/02/24 desvenlafaxine succinate 100 mg 100 mg PO QAM #30 tabs 07/02/24 tablet,extended release 24 hr (Pristiq) doxepin 25 mg capsule See Rx Instructions .Route 07/02/24 .COMPLEX #60 caps hydroxyzine HCl 25 mg tablet 25 mg PO BID PRN anxiety or sleep 07/02/24 #60 tabs methylprednisolone 4 mg tablets in See Rx Instructions PO .COMPLEX 07/11/24 a dose pack (Medrol (Salvador)) #21 ea ondansetron 8 mg disintegrating 8 mg PO Q6H #14 tabs 08/07/24 tablet Allergies Allergy/AdvReac Type Severity Reaction Status Date / Time carisoprodol (From Soma) Allergy Unknown unknown Verified 05/30/24 12:05 rofecoxib (From Vioxx) Allergy Unknown UNKNOWN Verified 05/30/24 12:05 Ljordys-NLI-VlT Reductase Allergy Unknown unknown Verified 05/30/24 12:05 Inhibitor (Efjmlws-Hbx-Fje Reductase Inhibitor) sumatriptan (From Imitrex) Allergy Unknown unknown Verified 05/30/24 12:05 Review of Systems General: Reports: 10 or more systems reviewed and unremarkable except in HPI and below Const: Denies: fever(s) or chills Card: Denies: chest pain Resp: Denies: dyspnea or productive cough GI: Denies: abdominal pain, nausea, vomiting or diarrhea : Denies: flank pain Musc: Reports: joint pain (Left knee) and limited range of motion (left knee); Denies: neck pain, back pain, extremity pain, extremity swelling, joint swelling, joint redness, joint warmth or muscle weakness Skin/Breast: Denies: rash Neuro: Denies: headache(s), numbness in extremities or weakness in extremities PFSH ED PFSH: Medical History Anticipatory grief Psychiatric care Insomnia BENITO on CPAP Major depressive disorder, recurrent, moderate Surgical History H/O: hysterectomy H/O tubal ligation H/O rotator cuff surgery Family History Sister Ovarian cancer Diabetes Stroke TIA Brother Diabetes Hypertension Mother Diabetes Father Stroke Grandmother Stroke Paternal Other Stomach cancer Denies family history of Colon cancer Heart disease Hyperlipidemia Breast cancer Uterine cancer Thyroid disease Social History Smoking and tobacco/nicotine status: never used tobacco/nicotine Physical Exam Const: COMMON NORMALS: no acute distress, patient oriented x3, no limitations, healthy appearing, alert and well nourished HENMT: COMMON NORMALS: normocephalic and atraumatic HEAD & SCALP: normocephalic and atraumatic Neck/C-Spine: COMMON NORMALS: full ROM, supple and no meningeal signs Resp: COMMON NORMALS: normal respiratory effort, No use of accessory muscles and clear to auscultation bilaterally AUSCULTATION: clear to auscultation bilaterally Cardio: COMMON NORMALS: regular rate and regular rhythm RATE: regular rate RHYTHM: regular rhythm Extremity: COMMON NORMALS: full ROM, capillary refill normal, no joint enlargement and no clubbing, cyanosis or edema NARRATIVE EXTREMITY EXAM: Pain with flexion of the left knee. No obvious swelling, no joint redness or warmth. Mild tender to palpation to medial joint line of the left knee. No joint laxity with varus/valgus stress testing. Negative anterior/posterior drawer. No popliteal space tenderness. Neuro: COMMON NORMALS: patient oriented x3, moves all extremities, no focal motor deficits and no sensory deficits noted SENSORIUM/ORIENTATION: Yes alert MENINGEAL SIGNS: Yes no meningeal signs Skin: COMMON NORMALS: no rashes or lesions noted GENERAL SKIN EXAM: no rashes or lesions noted Course Vital Signs: Vital signs: Vital Signs Temperature 97.9 F 09/21/24 21:53 Pulse Rate 80 09/21/24 22:00 Respiratory Rate 16 09/21/24 21:53 Blood Pressure 149/83 09/21/24 22:00 Pulse Oximetry 97 09/21/24 22:00 Oxygen Delivery Me thod Room Air 09/21/24 21:53 MDM - Extremity (Nontraumatic) Medical Decision Making Patient presenting with left knee pain past couple days. History of meniscal pair on the right, stating this feels similar in pain quality. On exam tender to left medial joint line, I do of concern for meniscal injury though there was no joint laxity on exam, though this somewhat limited secondary to patient's body habitus. X-ray showing mild arthritis, will treat with 1 Decadron shot here in the ED and have her follow-up with orthopedics for further evaluation. Discussed conservative therapies in the meantime. Lab Data Radiology Impressions Knee X-Ray 09/21/24 21:42 IMPRESSION: As above. All radiology interpretation(s) finalized by discharge Discharge Plan Discharge Patient Disposition: Home Clinical Impression: Left knee sprain Condition: Stable Prescriptions: No Action ezetimibe 10 mg tablet 10 mg PO BEDTIME levothyroxine 100 mcg capsule 100 mcg PO QAM lisinopril 5 mg tablet 5 mg PO QAM Januvia 100 mg tablet 100 mg PO DAILY glucosamine-chondroitin 900 mg tablet 900 mg PO BID aripiprazole 15 mg tablet 15 mg PO QAM Qty: 30 5RF desvenlafaxine succinate [Pristiq] 100 mg tablet extended release 24 hr 100 mg PO QAM Qty: 30 5RF doxepin 25 mg capsule See Rx Instructions .ROUTE .COMPLEX Qty: 60 3RF Dose Instruction: TAKE 1 TO 2 CAPSULES BY MOUTH ONCE DAILY AT BEDTIME Rx Instructions: TAKE 1 TO 2 CAPSULES BY MOUTH ONCE DAILY AT BEDTIME hydroxyzine HCl 25 mg tablet 25 mg PO BID PRN (Reason: anxiety or sleep) Qty: 60 3RF cetirizine [Zyrtec] 10 mg Tablet 10 mg PO BEDTIME methylprednisolone [Medrol (Salvador)] 4 mg tablets,dose pack See Rx Instructions .ROUTE .COMPLEX Qty: 21 0RF Rx Instructions: for 6 days multivitamin Tablet 1 tab PO QAM primidone 50 mg tablet 50 mg PO BID albuterol sulfate [Ventolin HFA] 90 mcg/actuation HFA aerosol inhaler 1 inh inhalation Q6H PRN (Reason: shortness of breath or wheezing) Qty: 6.7 0RF cyanocobalamin (vitamin B-12) [Vitamin B-12] 1,000 mcg Tablet 1,000 mcg PO DAILY meloxicam 7.5 mg tablet 7.5 mg PO DAILY ondansetron 4 mg tablet,disintegrating See Rx Instructions .ROUTE .COMPLEX PRN (Reason: Nausea) Rx Instructions: PLACE 1 TABLET BY TRANSLINGUAL ROUTE EVERY 8 HOURS ON TOP OF THE TONGUE WHERE IT WILL DISSOLVE , THEN SWALLOW NEEDED FOR NAUSEA. magnesium oxide 400 mg magnesium Tablet 400 mg PO QAM ondansetron 8 mg tablet,disintegrating 8 mg PO Q6H Qty: 14 0RF Rx Instructions: Take 1/2-1 tab every 6 hours as needed for nausea and vomiting Discharge Orders: Discharge ED (Routine); Ordered 09/21/24 Ordered By: Remi Can Referrals: Villa Adrian FNP [Primary Care Provider] - Patient Instructions: Knee Sprain (ED) Activity Restrictions/Additional Instructions: Please follow-up with orthopedics as we discussed. Continue taking ibuprofen Tylenol at home for pain relief. Elevation and ice. Weightbearing as tolerated and range of motion exercises as tolerated. Return with any new or worsening. Print Language: French Coding Level of Care Code ED Electrolytic Etcher for Kerri Celis
[2024-09-21 23:37] VITALS: BP 157/82; PULSE 76; O2SAT 95
--- NOTE | 2024-09-22 11:36 | DCPLANNER ---
messaged ortho for er f/u
== END 2024-09-21 23:38 | disposition home or self-care (01) ==
PROVIDERS: Emergency Provider Physician Assistant; PCP Nurse Practitioner Family
DX: S83.92XA Sprain of unspecified site of left knee, initial encounter (principal); X58.XXXA Exposure to other specified factors, initial encounter
CPT/HCPCS: 73562; 96372; 99284; J1100

== ENCOUNTER 2024-09-25 20:21 | Emergency (ER) | payer OTHER, SELFPAY ==
[2024-09-25 20:34] VITALS: BP 160/81; PULSE 86; RESP 20; TEMP 36.7; O2SAT 95
--- NOTE | 2024-09-25 21:19 | W.ED.EXTPRO ---
HPI - Extremity Problem General: Chief complaint: Extremity Injury, Lower Stated complaint: left knee pain Time Seen by Provider: 09/25/24 21:09 Source: patient Mode of arrival: ambulatory Limitations: no limitations History of Present Illness: Patient is a nice 59-year-old female presents to ED today with a complaint of left knee pain. Patient states she injured the knee approximately 2 weeks ago after hyperextending it. She states she was seen here in our emergency department several days ago and had negative x-rays performed. She states she does have an MRI of the knee scheduled for 09/30. Patient states after working on her legs all day today her pain became significant. No new injury or trauma. She has not noticed any redness or warmth to the knee joint. She has not noticed any swelling or tenderness to her calf. MD Complaint: joint pain Onset (ago): week(s) Pain Consistency: constant Location: left and knee Radiation: none Relieving factors: nothing Exacerbating factors: weight bearing, walking and palpation Associated symptoms: Reports no associated symptoms; Deny fever(s) Related Data Home Medications ?Medication ?Instructions ?Recorded ?Confirmed levothyroxine 100 mcg capsule 100 mcg PO QAM 09/02/19 07/02/24 lisinopril 5 mg tablet 5 mg PO QAM 09/02/19 07/02/24 ezetimibe 10 mg tablet 10 mg PO BEDTIME 01/08/20 07/02/24 cetirizine 10 mg tablet (Zyrtec) 10 mg PO BEDTIME 02/21/20 07/02/24 multivitamin 1 tab PO QAM 12/25/22 07/02/24 primidone 50 mg tablet 50 mg PO BID 04/05/23 07/02/24 antiarthritic combination no.2 900 900 mg PO BID 02/11/24 07/02/24 mg tablet (glucosamine-chondroitin) sitagliptin phosphate 100 mg 100 mg PO DAILY 02/11/24 07/02/24 tablet (Januvia) cyanocobalamin (vitamin B-12) 1,000 mcg PO DAILY 05/30/24 07/02/24 1,000 mcg tablet (Vitamin B-12) magnesium oxide 400 mg PO QAM 05/30/24 07/02/24 meloxicam 7.5 mg tablet 7.5 mg PO DAILY 12/15/24 01/17/25 ondansetron 4 mg disintegrating See Rx Instructions .Route 05/30/24 07/02/24 tablet .COMPLEX PRN Nausea Previous Rx's ?Medication ?Instructions ?Recorded albuterol sulfate 90 mcg/actuation 1 inh inhalation Q6H PRN shortness 04/05/23 aerosol inhaler (Ventolin HFA) of breath or wheezing #6.7 grams aripiprazole 15 mg tablet 15 mg PO QAM #30 tabs 07/02/24 desvenlafaxine succinate 100 mg 100 mg PO QAM #30 tabs 07/02/24 tablet,extended release 24 hr (Pristiq) doxepin 25 mg capsule See Rx Instructions .Route 07/02/24 .COMPLEX #60 caps hydroxyzine HCl 25 mg tablet 25 mg PO BID PRN anxiety or sleep 07/02/24 #60 tabs methylprednisolone 4 mg tablets in See Rx Instructions PO .COMPLEX 07/11/24 a dose pack (Medrol (Salvador)) #21 ea ondansetron 8 mg disintegrating 8 mg PO Q6H #14 tabs 08/07/24 tablet hydrocodone 5 mg-acetaminophen 325 1 tab PO Q6H PRN pain #14 tabs 09/25/24 mg tablet methylprednisolone 4 mg tablets in See Rx Instructions PO .COMPLEX 09/25/24 a dose pack (Medrol (Salvador)) #21 ea Allergies Allergy/AdvReac Type Severity Reaction Status Date / Time carisoprodol (From Soma) Allergy Unknown unknown Verified 09/25/24 20:39 rofecoxib (From Vioxx) Allergy Unknown UNKNOWN Verified 09/25/24 20:39 Ycwurtd-BUI-TdR Reductase Allergy Unknown unknown Verified 09/25/24 20:39 Inhibitor (Kwaushh-Yvu-Lpn Reductase Inhibitor) sumatriptan (From Imitrex) Allergy Unknown unknown Verified 09/25/24 20:39 Review of Systems Const: Denies: fever(s) Musc: Reports: joint pain (L knee); Denies: extremity pain, extremity swelling, joint redness or joint warmth Neuro: Denies: numbness in extremities, weakness in extremities or sensory changes PFSH ED PFSH: Medical History Anticipatory grief Psychiatric care Insomnia BENITO on CPAP Major depressive disorder, recurrent, moderate Surgical History H/O: hysterectomy H/O tubal ligation H/O rotator cuff surgery Family History Sister Ovarian cancer Diabetes Stroke TIA Brother Diabetes Hypertension Mother Diabetes Father Stroke Grandmother Stroke Paternal Other Stomach cancer Denies family history of Colon cancer Heart disease Hyperlipidemia Breast cancer Uterine cancer Thyroid disease Social History Smoking and tobacco/nicotine status: never used tobacco/nicotine Physical Exam Const: COMMON NORMALS: no acute distress, patient oriented x3, no limitations, alert and well nourished GENERAL APPEARANCE: cooperative NUTRITIONAL APPEARANCE: obese (BMI 42.3) Extremity: COMMON NORMALS: capillary refill normal, no clubbing, cyanosis or edema, no calf tenderness and no pedal edema GENERAL: Yes normal exam except as noted LEFT LOWER EXTREMITY: Yes knee joint (TTP anterior/lateral L knee; no obvious effusion) Left knee: Yes ROM (somewhat limited due to pain but normal micromovements), Yes neurovascular exam (normal) and Yes other (no obvious laxity; exam somewhat limited due to body habitus) Neuro: COMMON NORMALS: patient oriented x3, moves all extremities, no focal motor deficits and no sensory deficits noted SENSORIUM/ORIENTATION: Yes alert GAIT: Yes Other gait observations present (slight limp on L knee noted) Course Vital Signs: Vital signs: Vital Signs Temperature 98.1 F 09/25/24 20:34 Pulse Rate 75 09/25/24 21:47 Respiratory Rate 18 09/25/24 21:38 Blood Pressure 122/66 09/25/24 21:47 Pulse Oximetry 93 09/25/24 21:47 Oxygen Delivery Me thod Room Air 09/25/24 20:34 MDM - Extremity (Nontraumatic) Medical Decision Making XRs from last visit were reviewed. She has MRI scheduled next week of the knee. There is no indication for additional imaging today. Will treat patient's pain and continue plan for advanced imaging. She does have a knee brace that she has been wearing-recommend she continue this. Return ED precautions discussed. Medical Records I reviewed the patient's medical records. No radiology studies performed this visit Discharge Plan Discharge Patient Disposition: Home Clinical Impression: Acute pain of left knee Condition: Stable Prescriptions: New hydrocodone-acetaminophen 5-325 mg tablet 1 tab PO Q6H PRN (Reason: pain) Qty: 14 0RF methylprednisolone [Medrol (Salvador)] 4 mg tablets,dose pack See Rx Instructions .ROUTE .COMPLEX Qty: 21 0RF Rx Instructions: orally per package directions No Action ezetimibe 10 mg tablet 10 mg PO BEDTIME levothyroxine 100 mcg capsule 100 mcg PO QAM lisinopril 5 mg tablet 5 mg PO QAM Januvia 100 mg tablet 100 mg PO DAILY glucosamine-chondroitin 900 mg tablet 900 mg PO BID aripiprazole 15 mg tablet 15 mg PO QAM Qty: 30 5RF desvenlafaxine succinate [Pristiq] 100 mg tablet extended release 24 hr 100 mg PO QAM Qty: 30 5RF doxepin 25 mg capsule See Rx Instructions .ROUTE .COMPLEX Qty: 60 3RF Dose Instruction: TAKE 1 TO 2 CAPSULES BY MOUTH ONCE DAILY AT BEDTIME Rx Instructions: TAKE 1 TO 2 CAPSULES BY MOUTH ONCE DAILY AT BEDTIME hydroxyzine HCl 25 mg tablet 25 mg PO BID PRN (Reason: anxiety or sleep) Qty: 60 3RF cetirizine [Zyrtec] 10 mg Tablet 10 mg PO BEDTIME methylprednisolone [Medrol (Salvador)] 4 mg tablets,dose pack See Rx Instructions .ROUTE .COMPLEX Qty: 21 0RF Rx Instructions: for 6 days multivitamin Tablet 1 tab PO QAM primidone 50 mg tablet 50 mg PO BID albuterol sulfate [Ventolin HFA] 90 mcg/actuation HFA aerosol inhaler 1 inh inhalation Q6H PRN (Reason: shortness of breath or wheezing) Qty: 6.7 0RF cyanocobalamin (vitamin B-12) [Vitamin B-12] 1,000 mcg Tablet 1,000 mcg PO DAILY meloxicam 7.5 mg tablet 7.5 mg PO DAILY ondansetron 4 mg tablet,disintegrating See Rx Instructions .ROUTE .COMPLEX PRN (Reason: Nausea) Rx Instructions: PLACE 1 TABLET BY TRANSLINGUAL ROUTE EVERY 8 HOURS ON TOP OF THE TONGUE WHERE IT WILL DISSOLVE , THEN SWALLOW NEEDED FOR NAUSEA. magnesium oxide 400 mg magnesium Tablet 400 mg PO QAM ondansetron 8 mg tablet,disintegrating 8 mg PO Q6H Qty: 14 0RF Rx Instructions: Take 1/2-1 tab every 6 hours as needed for nausea and vomiting Discharge Orders: Discharge ED (Routine); Ordered 09/25/24 Ordered By: Karen Larry Referrals: Villa Adrian FNP [Primary Care Provider] - Patient Instructions: Opioid Safety, Pain Management Activity Restrictions/Additional Instructions: Continue current plan for MRI imaging of the left knee next week. Print Language: Serbian Coding Level of Care Code ED Personalized Living Manager Nurse for Kerri Celis
[2024-09-25 21:38] VITALS: RESP 18
[2024-09-25] MEDS: morphine 4 mg/mL SDV 1 mL IM (21:38)
[2024-09-25] MEDS: ondansetron 2 mg/ML SDV 2 mL 4 MG IM (21:38)
[2024-09-25] MEDS: ketorolac 30 mg/mL INJ IM (21:39)
[2024-09-25 21:47] VITALS: BP 122/66; PULSE 75; O2SAT 93
== END 2024-09-25 21:48 | disposition home or self-care (01) ==
PROVIDERS: Emergency Provider Physician Assistant; PCP Nurse Practitioner Family
DX: M25.562 Pain in left knee (principal)
CPT/HCPCS: 96372; 99284; J1885; J2270; J2405

== ENCOUNTER 2024-09-30 15:42 | Outpatient (CLI) | payer OTHER, SELFPAY ==
--- NOTE | 2024-09-30 16:23 | MR_ITS ---
WS: [id number] MRI LEFT KNEE NONCONTRAST TECHNIQUE: Axial PD, coronal PD fat sat, coronal PD, sagittal PD, and sagittal PD fat-sat images obtained. CLINICAL INFORMATION: LT KNEE PAIN COMPARISON: None. FINDINGS: Moderate tricompartment arthritis. Hypertrophic patella. Distal quadriceps and patellar tendons are intact. ACL appears intact but somewhat thin and diminutive which may be due to prior partial tear. No significant edema in the ACL fibers. Normal PCL. Moderate chondromalacia patella. Medial and lateral patellar retinacula appear intact. Normal popliteal fossa. Fibular head appears normal. Chronic thinning of the medial and lateral meniscus. No acute appearing meniscal tears. Chronic intrasubstance signal abnormality involving the lateral meniscus. Medial and lateral collateral ligaments appear intact. Biceps femoris appears intact. Normal popliteus. Grade III chondromalacia medial and lateral joint compartments with joint space narrowing. MR/MR knee LT wo con* [id number] IMPRESSION: 1. 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 2. Grade III chondromalacia patella. 3. Normal PCL. Intact ACL fibers are visualized but ACL is somewhat diminutive which may be due to prior chronic partial tear although no evidence of acute i njury today. 4. No acute appearing meniscal tears. Chronic signal abnormality in the latera l meniscus. 5. No other acute findings. Outbridge grading: grade III: partial-thickness cartilage loss with focal ulcer ation
== END 2024-09-30 15:43 | disposition home or self-care (01) ==
PROVIDERS: PCP Nurse Practitioner Family; Visit Provider Nurse Practitioner Family
DX: M13.862 Other specified arthritis, left knee (principal); M22.42 Chondromalacia patellae, left knee; R93.6 Abnormal findings on diagnostic imaging of limbs; M89.38 Hypertrophy of bone, other site
CPT/HCPCS: 73721

== ENCOUNTER → 2024-10-19 09:16 | Day surgery (SDC) | payer OTHER, SELFPAY ==
[2024-10-19] VITALS (9 sets, daily range): BP systolic 150–175; BP diastolic 78–101; PULSE 74–98; RESP 13–20; TEMP 36.6–36.9; O2SAT 90–98; BMI 43.5
--- NOTE | 2024-10-19 09:47 | ANES.PREANE2 ---
Pre-Anesthetic Assessment Height/Weight: Height 5 ft 6 in Preop Diagnosis: Knee pain Operation Date: 10/19/24 11:20 Proposed Procedures p LEFT Knee Diagnostic and Surgical Arthroscopy(Left) - Héctor Adams MD Was Beta Salbador taken within 24 hours: N/A Was Clonidine taken within 24 hours: N/A Social No alcohol and No tobacco Exam alert, oriented x 3, clear to auscultation bilaterally and regular rate & rhythm Airway Submandibular: within normal limits Cervical ROM: within normal limits Mallampati: Class II Dentition: full Anesthetic Plan ASA status: 3 Anesthesia: General Other: No prior issues with anesthesia N.p.o. since yesterday evening History of hypertension on lisinopril Type 2 diabetes, on metformin Hypothyroidism on Synthroid Labs from July reviewed and acceptable for procedure EKG showing sinus rhythm with occasional PVCs Patient states ambulation is limited secondary to knee pain Plan for general anesthesia Medications/Allergies Home Medications ?Medication ?Instructions ?Recorded ?Confirmed ?Last Taken ?Type levothyroxine 100 mcg capsule 100 mcg PO QAM 09/02/19 10/18/24 10/18/24 History lisinopril 5 mg tablet 5 mg PO QAM 09/02/19 10/18/24 10/18/24 History ezetimibe 10 mg tablet 10 mg PO BEDTIME 01/08/20 10/18/24 10/18/24 History cetirizine 10 mg tablet (Zyrtec) 10 mg PO BEDTIME 02/21/20 10/18/24 10/18/24 History multivitamin 1 tab PO QAM 12/25/22 10/18/24 10/18/24 History albuterol sulfate 90 mcg/actuation 1 inh inhalation Q6H PRN shortness 04/05/23 10/18/24 Unknown Rx aerosol inhaler (Ventolin HFA) of breath or wheezing #6.7 grams primidone 50 mg tablet 50 mg PO BID 04/05/23 10/18/24 10/18/24 History antiarthritic combination no.2 900 900 mg PO BID 02/11/24 10/18/24 10/18/24 History mg tablet (glucosamine-chondroitin) cyanocobalamin (vitamin B-12) 1,000 mcg PO DAILY 05/30/24 10/18/24 10/18/24 History 1,000 mcg tablet (Vitamin B-12) magnesium oxide 400 mg PO QAM 05/30/24 10/18/24 10/18/24 History meloxicam 7.5 mg tablet 7.5 mg PO DAILY 05/30/24 10/18/24 10/04/24 History ondansetron 4 mg disintegrating See Rx Instructions .Route 05/30/24 10/18/24 Unknown History tablet .COMPLEX PRN Nausea doxepin 25 mg capsule See Rx Instructions .Route 07/02/24 10/18/24 10/11/24 Rx .COMPLEX #60 caps hydroxyzine HCl 25 mg tablet 25 mg PO BID PRN anxiety or sleep 07/02/24 10/18/24 Unknown Rx #60 tabs hydrocodone 5 mg-acetaminophen 325 1 tab PO Q6H PRN pain #14 tabs 09/25/24 10/18/24 Unknown Rx mg tablet metformin 500 mg tablet mg PO 09/30/24 10/04/24 10/18/24 History pioglitazone 15 mg tablet mg PO 09/30/24 10/04/24 10/18/24 History aripiprazole 15 mg tablet 15 mg PO QAM #30 tabs 10/04/24 10/18/24 10/18/24 Rx desvenlafaxine succinate 100 mg 100 mg PO QAM #30 tabs 10/04/24 10/18/24 10/18/24 Rx tablet,extended release 24 hr (Pristiq) Allergies Allergy/AdvReac Type Severity Reaction Status Date / Time carisoprodol (From Soma) Allergy Unknown unknown Verified 10/04/24 08:49 rofecoxib (From Vioxx) Allergy Unknown UNKNOWN Verified 10/04/24 08:49 Twvisch-MMC-FpE Reductase Allergy Unknown unknown Verified 10/04/24 08:49 Inhibitor (Gukccec-Qet-Qyy Reductase Inhibitor) sumatriptan (From Imitrex) Allergy Unknown unknown Verified 10/04/24 08:49 [facility] Anesthesia Medical History Anticipatory grief Psychiatric care Insomnia BENITO on CPAP Major depressive disorder, recurrent, moderate Surgical History H/O: hysterectomy H/O tubal ligation H/O rotator cuff surgery Family History Sister Ovarian cancer Diabetes Stroke TIA Brother Diabetes Hypertension Mother Diabetes Father Stroke Grandmother Stroke Paternal Other Stomach cancer Denies family history of Colon cancer Heart disease Hyperlipidemia Breast cancer Uterine cancer Thyroid disease Social History Smoking and tobacco/nicotine status: never used tobacco/nicotine
[2024-10-19] MEDS: sodium chloride 0.9% 1,000 ML 30 ML IV (10:06)
--- NOTE | 2024-10-19 10:40 | W.PM.OPSUD ---
Surgery/Procedure H&P Update DATE OF PROCEDURE: October 19, 2024 DATE H&P PERFORMED: 10/04/24 H&P UPDATE INFORMATION: I have reviewed H&P completed within last 30 days, I have examined patient prior to procedure, No changes to prior documentation and Risks and benefits of the procedure reviewed PREOP DIAGNOSIS: Knee pain PLANNED PROCEDURE: Operation Date: 10/19/24 11:20 Proposed Procedures p LEFT Knee Diagnostic and Surgical Arthroscopy(Left) - Héctor Adams MD
[2024-10-19] MEDS: ceFAZolin 2,000 mg SDV 2000 MG IVP (11:01)
[2024-10-19] MEDS: BUPivacaine 0.5% INJ 30 mL XX (11:28)
[2024-10-19] MEDS: ceFAZolin 1,000 mg SDV 1000 MG IVP (11:31)
--- NOTE | 2024-10-19 13:20 | ANE.PACU2 ---
Inpatient post-anesthesia follow up: Airway intact: Yes Vital signs: Temperature 97.9 F Pulse Rate 80 Respiratory Rate 18 Blood Pressure 164/79 Pulse Oximetry 98 Oxygen Delivery Me thod Room Air Oxygen Flow Rate Fraction of Inspir ed Oxygen Hydration adequate: Yes Nausea and vomiting: No Pain level: 2 Mental status: Baseline
--- NOTE | 2024-10-19 17:34 | P.OP_ITS ---
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 Procedure: Diagnostic knee arthroscopy on the left with partial medial and lateral meniscectomy, chondroplasty of the medial femoral condyle, posterior patella Surgeon: Héctor Adams MD Anesthesia: General EBL: Minimal Indications: Cindi is a 59-year-old white female who had a fall in June of this year landing on her left knee. Since that time she had increasing pain problems difficulties. Recently has become unbearable. Her primary care has ordered an MRI and I originally saw her prior to the MRI. I felt at that time she more likely on clinical exam had a medial meniscal tear. MRIs confirm this and therefore she was offered a diagnostic knee arthroscopy with all indicated procedures. All risk benefits treatment alternatives were discussed with her and she is agreeable to this at this time. Procedure: After obtaining the consent patient was taken the operating room placed in upper table supine position general anesthetic administered. Once good anesthesia was achieved left legs placed in leg walker and the further bed dropped. Left leg was prepped and draped usual fashion right leg was padded appropriately. After surgical timeout standard anterior medial and lateral portals were made #11 blade and the camera cannulas placed in the lateral portal. Current knee was undertaken. Posterior patella had grade II chondromalacia over his main weightbearing surface this is debrided with mechanical shaver. IT grooves demonstrate some softening of the cartilage but no true breakdown. Medial gutter was clear. Medial compartment demonstrated degenerative tearing of the posterior horn medial meniscus. This is then debrided with small hand instruments and mechanical shaver. Also noted there is grade II/III chondromalacia of the central portion of the medial femoral condyle with cracking of the articular surface extending away from there. This is debrided down to stable cartilaginous base also. Intercondylar notch demonstrated an intact anterior cruciate ligament. Lateral compartment demonstrated degenerative tearing of the inner edge of the lateral meniscus and this too was debrided with mechanical shaver down to stable cartilaginous space. Overall lateral compartment is in good repair. Lateral gutter is clear. Cannulas were removed after knee had been washed with copious amounts of sterile irrigation. Wounds were then closed with 3-0 Prolene interrupted sutures. Injected with core percent Marcaine plain throughout the wounds for postope rative pain management. Wounds were then cleaned and dried dressed with Xeroform gauze, sterile gauze dressing, Kerlix wrap and William wrap for compression. Patient was awakened transferred to cover room in stable condition
== END | disposition home or self-care (01) ==
PROVIDERS: PCP Nurse Practitioner Family; Visit Provider Orthopaedic Surgery
PROC: (CPT 29870; principal; 2024-10-19 11:20)
DX: S83.242A Other tear of medial meniscus, current injury, left knee, initial encounter (principal); S83.282A Other tear of lateral meniscus, current injury, left knee, initial encounter; M22.42 Chondromalacia patellae, left knee; I10 Essential (primary) hypertension; E11.9 Type 2 diabetes mellitus without complications; Z79.84 Long term (current) use of oral hypoglycemic drugs; E03.9 Hypothyroidism, unspecified; G47.33 Obstructive sleep apnea (adult) (pediatric); X58.XXXA Exposure to other specified factors, initial encounter
CPT/HCPCS: 29880; J0690; J1100; J2250; J2405; J2704; J3010; J3490; J7030; J9999

== ENCOUNTER 2024-11-18 09:24 | Outpatient (CLI) | payer OTHER, SELFPAY ==
--- NOTE | 2024-11-18 09:20 | MM_ITS ---
WS: [id number] SCREENING DIGITAL BREAST TOMOSYNTHESIS MAMMOGRAM WITH CAD HISTORY: SCREENING COMPARISON: 07/30/2023 Bilateral CC and MLO with tomosynthesis and synthetic mammography submitted. Computer aided detection analyzed. Breast composition: There are scattered areas of fibroglandular density. 3 mm slightly lobulated mass in the mid RIGHT breast central to the nipple. There is an additional mass measuring 7 x 10 x 8 mm which is slightly hyperdense to the remaining breast tissue. This mass is in the LEFT breast 3:00 posterior. No change since the prior study. No suspicious grouping of calcifications. MM/MM scr BI tomosynthesis [id number] IMPRESSION: BI-RADS: 0 - Incomplete: Need additional imaging evaluation. FOLLOW UP: Need Additional Imaging Bilateral breast: Spot compression views (CC and MLO). True ML. Ultrasound to f buck if abnormality persists.
== END 2024-11-18 09:25 | disposition home or self-care (01) ==
LOC: MOBLMAM 09:28
PROVIDERS: PCP Nurse Practitioner Family; Visit Provider Nurse Practitioner Family
DX: Z12.31 Encounter for screening mammogram for malignant neoplasm of breast (principal); R92.323 Mammographic fibroglandular density, bilateral breasts; N63.10 Unspecified lump in the right breast, unspecified quadrant; N63.15 Unspecified lump in the right breast, overlapping quadrants
CPT/HCPCS: 77063; 77067

== ENCOUNTER 2024-11-22 08:17 | Outpatient (RCR) | payer OTHER, SELFPAY | END 2024-12-13 23:59 | disposition home or self-care (01) | LOC: SPT 08:17 | PROVIDERS: PCP Nurse Practitioner Family; Visit Provider Orthopaedic Surgery | DX: M25.562 Pain in left knee (principal) | CPT/HCPCS: 97110; 97161 ==

== ENCOUNTER 2024-12-08 16:04 | Emergency (ER) | payer OTHER, SELFPAY ==
--- NOTE | 2024-12-08 16:08 | XRR_ITS ---
PROCEDURE INFORMATION: Exam: XR Left Knee Exam date and time: 12/08/2024 4:18 PM Age: 59 years old Clinical indication: Injury or trauma; Fall; Blunt trauma; Knee; Left TECHNIQUE: Imaging protocol: Radiologic exam of the left knee. Views: 3 views. COMPARISON: MR knee LT wo con* [id number] 09/30/2024 5:03 PM FINDINGS: Bones/joints: Mild degenerative changes in the knee. No fracture. No knee effusion. Soft tissues: Small soft tissue calcification anterior to the patellar tendon. XR/XR knee LT 3V* [id number] IMPRESSION: No acute findings.
[2024-12-08 16:12] VITALS: BP 156/77; PULSE 79; RESP 18; TEMP 36.3; O2SAT 95; BMI 43.5
--- OUTSIDE RECORDS SUMMARY | 2024-12-08 16:15 | XMS_ITS | Clinical Summary ---
Author Organization [facility] Address [address] [place]: Epic Prelude ADT [place] [address] Care Team Providers Care Skin Diving Teacher Name Role Phone Rupert Morrison MD Primary Care Provider [phone] Allergies Active Allergy Reactions Criticality Noted Date Comments Carisoprodol Weakness High 11/27/2010 Rofecoxib Shortness of Breath/Wheezing High 011 Sumatriptan Succinate Shortness of Breath/Wheezing High 11/27/2010 Medications ARIPiprazole (ABILIFY) 15 mg tablet Take 1 Tablet by mouth daily. 07/09/2023 Active cetirizine (ZyrTEC) 10 mg tablet Take 10 mg by mouth daily. 07/09/2023 Active desvenlafaxine (PRISTIQ) 100 mg Extended Release 24 hour tablet Take 100 mg by mouth daily with breakfast. 05/03/2023 Active doxepin (SINEquan) 25 mg capsule Take 25 mg by mouth daily at bedtime. 08/03/2023 Active ezetimibe (ZETIA) 10 mg tablet Take 10 mg by mouth daily. 07/31/2023 Active hydrOXYzine HCL (ATARAX) 25 mg tablet Take 25 mg by mouth daily at bedtime. 07/31/2023 Active levothyroxine 100 mcg tablet Take 1 Tablet by mouth daily. 07/09/2023 Active lisinopriL (PRINIVIL) 5 mg tablet Take 5 mg by mouth daily. 07/31/2023 Active promethazine (PHENERGAN) 25 mg tablet Take 25 mg by mouth every 6 hours as needed for Nausea. 07/21/2023 Active diazePAM (Valium) 5 mg tabletIndication s:DDD (degenerative disc disease), lumbar Take 1 Tablet (5 mg) by mouth one time for 1 dose. 1 Tablet 09/23/2023 Active Januvia 100 mg Tablet Take 1 Tablet by mouth daily. 11/16/2023 Active meloxicam (MOBIC) 7.5 mg tablet Take 1 tablet by mouth once daily 30 Tablet 3 07/20/2024 Active Active Problems No known active problems Encounters Date Type Department Care Team Description 12/07/2024 External Device Data [facility]STRACTION Provider, Abstract 11/09/2024 External Device Data [facility]CTION Provider, Abstract 11/03/2024 External Device Data [facility] Provider, Abstract 11/02/2024 External Device Data [facility] Provider, Abstract 09/14/2024 External Device Data [facility] Provider, Abstract from Last 3 Months Immunizations Immunization Administration Dates Next Due Influenza Seasonal Unspecified Formulation IM ,04/01/2006 Influenza Vaccine Split 3+ Yrs IM 04/15/2008 Influenza Vaccine Split 3+ Yrs PF IM 05/03/2009 Family History Medical History Relation Name Comments Heart Disease Father Hypertension Father Other Father Asthma Mother Other Mother Breast Cancer Sister Relation Name Status Comments Father Alive Mother Alive Sister Social History Tobacco Use Types Packs/Day Years Used Date Smoking Tobacco: Never Smokeless Tobacco: Never Tobacco Cessation:Counseling Given: Not Answered Alcohol Use Standard Drinks/Week Comments No 0 (1 standard drink = 0.6 oz pur e alcohol) Feeling Safe Answer Date Recorded Are you in a relationship wi th someone who hurts you emotionally and/or physically? No 10/07/2023 Comments No Sex and Gender Information Value Date Recorded Sex Assigned at Not on file Legal Sex Female 9:51 AM DIRECTOR HEDIS Gender Identity Not on file Sexual Orientation Not on file Last Filed Vital Signs Vital Sign Reading Time Taken Comments Blood Pressure 128/72 02/17/2024 10:38 AM CDT Pulse 75 02/17/2024 10:38 AM CDT Temperature 37 C (98.6 F) 10/07/2023 1:45 PM CDT Respiratory Rate 16 10/07/2023 2:39 PM CDT Oxygen Saturation 94% 02/17/2024 10:38 AM CDT Inhaled Oxygen Concentration - - Weight 122.5 kg (270 lb) 02/17/2024 10:38 AM CDT Height 165.1 cm (5' 5 ) 02/17/2024 10:38 AM CDT Body Mass Index 44.93 02/17/2024 10:38 AM CDT Plan of Treatment Health Maintenance Due Date Last Done Comments Pre-Diabetes and Diabetes Screening 1965 DTAP/TDAP/TD VACCINES (1 - Tdap) 1984 HEPATITIS B VACCINES (1 of 3 - 19+ 3-dose series) 1984 HPV/Cotest (21-29) 1986 CERVICAL CANCER SCREENING 1995 HPV/Cotest (30-65) 1995 PAP SMEAR 1995 COLORECTAL SCREENING 2010 Colorectal Cancer Screening 2010 FIT-DNA Q 3 years 2010 FIT/FOBT Q 1 year 2010 Flex Sig/CT Colonography Q 5 years 2010 ZOSTER VACCINE (1 of 2) 2015 INFLUENZA VACCINE (#1) 01/15/202405/03/ 9, 04/15/2008, 04/02/2007, Additional history exists BREAST CANCER SCREENING 07/30/2024 07/30/2023 Procedures Procedure Name Priority Date/Time Associated Diagnosis Comments MAMMO 3D GREGORY DIAGNOSTIC BILAT W OR WO CAD Routine 07/30/2023 8:58 AM DIRECTOR HEDIS Mastodynia Pain in left upper arm from Last 3 Months or Most Recently Relevant to Health Maintenance Results * MAMMO 3D GREGORY DIAGNOSTIC BILAT W OR WO CAD (07/30/2023 8:58 AM DIRECTOR HEDIS) Anatomical Region Laterality Modality Breast Bilateral Mammography 07/30/2023 3:05 PM DIRECTOR HEDIS Impressions 07/31/2023 1:18 PM DIRECTOR HEDIS IMPRESSION: 1. No radiographic evidence of malignancy. 2. BI-RADS Category 1. Narrative 07/31/2023 1:18 PM DIRECTOR HEDIS Exam: MAMMO 3D GREGORY DIAGNOSTIC BILAT W OR WO CAD Date/Time of Exam: 07/30/2023 8:58 AM Reason For Exam: See Diagnosis Diagnosis: Mastodynia; Pain in left upper arm This mammogram was also analyzed by the Computer Aided Detection System (CAD), [employer], Version 8.7. Bilateral 3-D gregory mammograms were obtained in the CC and MLO projections. The study was performed for evaluation of pain in the upper outer quadrant of the left breast. Comparison is to a prior study from 08/15/2022. There is no evidence of any dominant mass, suspicious microcalcifications, architectural distortions or developing densities. The breasts are fatty replaced. Dimple [facility] MAMMO ORDERABLES Final Result from Last 3 Months or Most Recently Relevant to Health Maintenance Insurance [employer] [place] Care Teams Skin Diving Teacher Relationship Specialty Start Date End Date Rupert Morrison MD [facility] [address] [place] [phone] PCP - General Family Practice 11/27/10
--- OUTSIDE RECORDS SUMMARY | 2024-12-08 16:15 | XMS_ITS | Encounter Summary ---
Author Organization [facility] Address [address] [place] [address] Care Team Providers Care Combination Operator Name Role Phone Rupert Morrison MD Primary Care Provider Encounter Details Date Type Department Care Team (Late st Contact Info) Description 12/07/2024 External Device Data [facility] Provider, Abstract NO ADDRESS ON FILE Social History Tobacco Use Types Packs/Day Years Used Date Smoking Tobacco: Never Smokeless Tobacco: Never Alcohol Use Standard Drinks/Week Comments No 0 (1 standard drink = 0.6 oz pur e alcohol) Feeling Safe Answer Date Recorded Are you in a relationship wi th someone who hurts you emotionally and/or physically? 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
--- NOTE | 2024-12-08 16:23 | W.ED.EXTPRO ---
HPI - Extremity Problem General: Chief complaint: Extremity Injury, Lower Stated complaint: left knee pain Time Seen by Provider: 12/08/24 16:20 Source: patient Mode of arrival: ambulatory Limitations: no limitations History of Present Illness: Patient is a 59-year-old female presents to ED today with complaint of left knee pain. She states she underwent orthopedic surgery by Dr. Adams on 10/19. She states she has had pain since the surgery. She has been undergoing physical therapy twice weekly over the past 6 weeks or so. Patient feels like pain is not improving. She is still working 4 days a week. She has not noticed any redness, warmth, swelling to the joint. She has followed up with orthopedics as directed. She has been told they may do intra-articular injections to the knee. Patient states she is not able to sleep due to discomfort. MD Complaint: joint pain Onset (ago): week(s) Pain Consistency: constant Location: left and knee Radiation: none Relieving factors: nothing Exacerbating factors: weight bearing and walking Associated symptoms: Reports no associated symptoms; Deny chest pain or fever(s) Related Data Home Medications ?Medication ?Instructions ?Recorded ?Confirmed levothyroxine 100 mcg capsule 100 mcg PO QAM 09/02/19 11/30/24 lisinopril 5 mg tablet 5 mg PO QAM 09/02/19 11/30/24 ezetimibe 10 mg tablet 10 mg PO BEDTIME 01/08/20 11/30/24 cetirizine 10 mg tablet (Zyrtec) 10 mg PO BEDTIME 02/21/20 11/30/24 multivitamin 1 tab PO QAM 12/25/22 11/30/24 primidone 50 mg tablet 50 mg PO BID 04/05/23 11/30/24 antiarthritic combination no.2 900 900 mg PO BID 02/11/24 11/30/24 mg tablet (glucosamine-chondroitin) cyanocobalamin (vitamin B-12) 1,000 mcg PO DAILY 05/30/24 11/30/24 1,000 mcg tablet (Vitamin B-12) magnesium oxide 400 mg PO QAM 05/30/24 11/30/24 meloxicam 7.5 mg tablet 7.5 mg PO DAILY 05/30/24 11/30/24 ondansetron 4 mg disintegrating See Rx Instructions .Route 05/30/24 11/30/24 tablet .COMPLEX PRN Nausea metformin 500 mg tablet mg PO 09/30/24 11/30/24 pioglitazone 15 mg tablet mg PO 09/30/24 11/30/24 Previous Rx's ?Medication ?Instructions ?Recorded albuterol sulfate 90 mcg/actuation 1 inh inhalation Q6H PRN shortness 04/05/23 aerosol inhaler (Ventolin HFA) of breath or wheezing #6.7 grams doxepin 25 mg capsule See Rx Instructions .Route 07/02/24 .COMPLEX #60 caps hydroxyzine HCl 25 mg tablet 25 mg PO BID PRN anxiety or sleep 07/02/24 #60 tabs aripiprazole 15 mg tablet 15 mg PO QAM #30 tabs 10/04/24 desvenlafaxine succinate 100 mg 100 mg PO QAM #30 tabs 10/04/24 tablet,extended release 24 hr (Pristiq) methocarbamol 500 mg tablet 500 mg PO Q8H #20 tabs 12/08/24 prednisone 10 mg tablet 10 mg PO DAILY 6 days #20 tabs 12/08/24 tramadol 50 mg tablet 50 mg PO Q6H PRN pain #20 tabs 12/08/24 Allergies Allergy/AdvReac Type Severity Reaction Status Date / Time carisoprodol (From Soma) Allergy Unknown unknown Verified 12/08/24 16:16 rofecoxib (From Vioxx) Allergy Unknown UNKNOWN Verified 12/08/24 16:16 Lutfegd-JOI-LtT Reductase Allergy Unknown unknown Verified 12/08/24 16:16 Inhibitor (Zkmssgt-Ejn-Efi Reductase Inhibitor) sumatriptan (From Imitrex) Allergy Unknown unknown Verified 12/08/24 16:16 Review of Systems Const: Denies: fever(s), chills, body aches, fatigue or malaise Card: Denies: chest pain Resp: Denies: dyspnea Musc: Reports: joint pain (L knee); Denies: extremity pain, extremity swelling, joint swelling, joint redness or joint warmth Neuro: Denies: numbness in extremities, weakness in extremities or sensory changes PFSH ED PFSH: Medical History Anticipatory grief Psychiatric care Insomnia BENITO on CPAP Major depressive disorder, recurrent, moderate Surgical History H/O: hysterectomy H/O tubal ligation H/O rotator cuff surgery Family History Sister Ovarian cancer Diabetes Stroke TIA Brother Diabetes Hypertension Mother Diabetes Father Stroke Grandmother Stroke Paternal Other Stomach cancer Denies family history of Colon cancer Heart disease Hyperlipidemia Breast cancer Uterine cancer Thyroid disease Social History Smoking and tobacco/nicotine status: never used tobacco/nicotine Physical Exam Const: COMMON NORMALS: no acute distress, no limitations, alert and well nourished GENERAL APPEARANCE: cooperative NUTRITIONAL APPEARANCE: obese (BMI 43.6) Resp: COMMON NORMALS: normal respiratory effort and clear to auscultation bilaterally AUSCULTATION: clear to auscultation bilaterally Cardio: COMMON NORMALS: regular rate and regular rhythm RATE: regular rate RHYTHM: regular rhythm Extremity: COMMON NORMALS: capillary refill normal and no calf tenderness GENERAL: Yes normal exam except as noted LEFT LOWER EXTREMITY: Yes knee joint (surgical incisions are well healed; no warmth/erythema to knee) Left knee: Yes ROM (fairly normal ROM; some discomfort; no pain out of proportion) and Yes neurovascular exam (normal) Neuro: COMMON NORMALS: moves all extremities, no focal motor deficits and no sensory deficits noted SENSORIUM/ORIENTATION: Yes alert Course Vital Signs: Vital signs: Vital Signs Temperature 97.4 F L 12/08/24 16:12 Pulse Rate 79 12/08/24 16:12 Respiratory Rate 18 12/08/24 16:12 Blood Pressure 156/77 12/08/24 16:12 Pulse Oximetry 95 12/08/24 16:12 Oxygen Delivery Me thod Room Air 12/08/24 16:12 MDM - Extremity (Nontraumatic) Medical Decision Making X-rays unremarkable. There is no concern for septic arthritis. No concern of DVT or other emergent pathology. Patient will be given medications to try to help with her discomfort. She does have upcoming appointment with Dr. Adams on December 14. Medical Records I reviewed the patient's medical records. XR interpretation done by ED provider, pending radiology final review Discharge Plan Discharge Patient Disposition: Home Clinical Impression: Postoperative pain of left knee Condition: Stable Prescriptions: New prednisone 10 mg tablet 10 mg PO DAILY 6 Days Qty: 20 0RF Rx Instructions: Take 5 tabs on day 1-2, 4 tabs on day 3, 3 tabs on day 4, 2 tabs on day 5, and 1 tab on day 6 tramadol 50 mg tablet 50 mg PO Q6H PRN (Reason: pain) Qty: 20 0RF methocarbamol 500 mg tablet 500 mg PO Q8H Qty: 20 0RF No Action ezetimibe 10 mg tablet 10 mg PO BEDTIME levothyroxine 100 mcg capsule 100 mcg PO QAM lisinopril 5 mg tablet 5 mg PO QAM glucosamine-chondroitin 900 mg tablet 900 mg PO BID doxepin 25 mg capsule See Rx Instructions .ROUTE .COMPLEX Qty: 60 3RF Dose Instruction: TAKE 1 TO 2 CAPSULES BY MOUTH ONCE DAILY AT BEDTIME Rx Instructions: TAKE 1 TO 2 CAPSULES BY MOUTH ONCE DAILY AT BEDTIME hydroxyzine HCl 25 mg tablet 25 mg PO BID PRN (Reason: anxiety or sleep) Qty: 60 3RF aripiprazole 15 mg tablet 15 mg PO QAM Qty: 30 5RF desvenlafaxine succinate [Pristiq] 100 mg tablet extended release 24 hr 100 mg PO QAM Qty: 30 5RF pioglitazone 15 mg tablet PO metformin 500 mg tablet PO cetirizine [Zyrtec] 10 mg Tablet 10 mg PO BEDTIME multivitamin Tablet 1 tab PO QAM primidone 50 mg tablet 50 mg PO BID albuterol sulfate [Ventolin HFA] 90 mcg/actuation HFA aerosol inhaler 1 inh inhalation Q6H PRN (Reason: shortness of breath or wheezing) Qty: 6.7 0RF cyanocobalamin (vitamin B-12) [Vitamin B-12] 1,000 mcg Tablet 1,000 mcg PO DAILY meloxicam 7.5 mg tablet 7.5 mg PO DAILY ondansetron 4 mg tablet,disintegrating See Rx Instructions .ROUTE .COMPLEX PRN (Reason: Nausea) Rx Instructions: PLACE 1 TABLET BY TRANSLINGUAL ROUTE EVERY 8 HOURS ON TOP OF THE TONGUE WHERE IT WILL DISSOLVE , THEN SWALLOW NEEDED FOR NAUSEA. magnesium oxide 400 mg magnesium Tablet 400 mg PO QAM Discharge Orders: Discharge ED (Routine); Ordered 12/08/24 Ordered By: Karen Larry Referrals: Villa Adrian FNP [Primary Care Provider] Patient Instructions: Opioid Safety, Pain Management, Patient Portal & Raheel Instructions Activity Restrictions/Additional Instructions: As we discussed, please follow-up with your orthopedic surgeon as scheduled next week. Print Language: Icelandic Coding Level of Care Code ED Apparel Embroidery Digitizer for Kerri Celis
[2024-12-08 17:02] VITALS: RESP 18; O2SAT 95
[2024-12-08] MEDS: morphine 4 mg/mL SDV 1 mL IM (17:02)
[2024-12-08] MEDS: ketorolac 30 mg/mL INJ IM (17:04)
[2024-12-08] MEDS: dexamethasone 10 mg/mL INJ IM (17:04)
== END 2024-12-08 17:13 | disposition home or self-care (01) ==
PROVIDERS: Emergency Provider Physician Assistant; PCP Nurse Practitioner Family
DX: G89.18 Other acute postprocedural pain (principal); Z79.84 Long term (current) use of oral hypoglycemic drugs; M25.562 Pain in left knee
CPT/HCPCS: 73562; 96372; 99284; J1100; J1885; J2270

== ENCOUNTER 2024-12-13 15:01 | Emergency (ER) | payer OTHER, SELFPAY ==
--- OUTSIDE RECORDS SUMMARY | 2024-12-13 15:05 | XMS_ITS | Clinical Summary ---
Author Organization [facility] Address [address] [place]: Epic Prelude ADT [place] [address] Care Team Providers Care Pairer Name Role Phone Rupert Morrison MD Primary Care Provider [phone] Allergies Active Allergy Reactions Criticality Noted Date [...] Encounters Date Type Department Care Team Description 12/13/2024 Refill [facility] [address] [place] [address] Gardenia Guardado FNP 12/07/2024 External Device Data [facility] Provider, [...] on file Legal Sex Female 9:51 AM INVENTORY CONTROL/SHIPPING RECEIVING Gender Identity Not on file Sexual Orientation [...] (1 of 2) 2015 INFLUENZA VACCINE (#1) 2024 9, 04/15/2008, 04/02/2007, Additional history exists BREAST CANCER SCREENING 07/30/2024 07/30/2023 Procedures Procedure Name Priority Date/Time Associated Diagnosis Comments MAMMO 3D GREGORY DIAGNOSTIC BILAT W OR WO CAD Routine 07/30/2023 8:58 AM INVENTORY CONTROL/SHIPPING RECEIVING Mastodynia Pain in left upper arm from Last 3 Months or Most Recently Relevant to Health Maintenance Results * MAMMO 3D GREGORY DIAGNOSTIC BILAT W OR WO CAD (07/30/2023 8:58 AM INVENTORY CONTROL/SHIPPING RECEIVING) Anatomical Region Laterality Modality Breast Bilateral Mammography 07/30/2023 3:05 PM INVENTORY CONTROL/SHIPPING RECEIVING Impressions 07/31/2023 1:18 PM INVENTORY CONTROL/SHIPPING RECEIVING IMPRESSION: 1. No radiographic evidence of malignancy. 2. BI-RADS Category 1. Narrative 07/31/2023 1:18 PM INVENTORY CONTROL/SHIPPING RECEIVING Exam: MAMMO 3D GREGORY DIAGNOSTIC BILAT W OR WO CAD Date/Time of Exam: 07/30/2023 8:58 AM Reason For Exam: See Diagnosis Diagnosis: Mastodynia; Pain in left upper arm This mammogram was also analyzed by the Computer Aided Detection System (CAD), [employer], Version 8.7. Bilateral 3-D gregory mammograms were [...] Most Recently Relevant to Health Maintenance Insurance [facility] Care Teams Pairer Relationship Specialty Start Date End Date Rupert Morrison MD [facility] [address] [place] [phone] PCP - General Family Practice 11/27/10
--- OUTSIDE RECORDS SUMMARY | 2024-12-13 15:05 | XMS_ITS | Encounter Summary ---
Author Organization [employer] Address 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 [address] [place] [phone] PCP - General Family Practice 11/27/10 documented as of this encounter
--- OUTSIDE RECORDS SUMMARY | 2024-12-13 15:05 | XMS_ITS | Encounter Summary ---
Author Organization [facility] Address [address] [place] [address] Care Team Providers Care Tapper Operator Name Role Phone Rupert Morrison MD Primary Care Provider [phone] Reason for Visit * Reason Comments Med Refill Encounter Details Date Type Department Care Team (Late st Contact Info) Description 12/13/2024 Refill [facility] Pain Management [address] [place] [address] Gardenia Guardado, ADMINISTRATIVE ANALYST [address] [place] [address] [place] [phone] Social History Tobacco Use Types Packs/Day Years [...] on file 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
[2024-12-13 15:10] VITALS: BP 165/76; PULSE 84; TEMP 36.7; O2SAT 95; BMI 44.9
--- NOTE | 2024-12-13 15:23 | W.ED.LOWEXIN ---
HPI - Extremity Injury (Lower) General: Chief Complaint: Extremity Problem,Nontraumatic Stated Complaint: left knee pain Time Seen by Provider: 12/13/24 15:17 Source: patient Mode of arrival: ambulatory Limitations: no limitations History of Present Illness: Patient is a 59-year-old female presents to ED today with a complaint of left knee pain. She underwent surgery by Dr. Adams early last month. She has had issues with it since. I saw her last week for pain. No concern for septic arthritis at the time. She was doing okay until today when she was getting out of her car and she twisted the knee and now pain is unbearable. She has follow up with Dr. Adams tomorrow. MD complaint: knee injury Severity: severe Relieving factors: immobilization Exacerbating factors: weight bearing and movement Associated symptoms: Reports no associated symptoms Other symptoms: none Related Data Home Medications ?Medication ?Instructions ?Recorded ?Confirmed levothyroxine 100 mcg capsule 100 mcg PO QAM 09/02/19 11/30/24 lisinopril 5 mg tablet 5 mg PO QAM 09/02/19 11/30/24 ezetimibe 10 mg tablet 10 mg PO BEDTIME 01/08/20 11/30/24 cetirizine 10 mg tablet (Zyrtec) 10 mg PO BEDTIME 02/21/20 11/30/24 multivitamin 1 tab PO QAM 12/25/22 11/30/24 primidone 50 mg tablet 50 mg PO BID 04/05/23 11/30/24 antiarthritic combination no.2 900 900 mg PO BID 02/11/24 11/30/24 mg tablet (glucosamine-chondroitin) cyanocobalamin (vitamin B-12) 1,000 mcg PO DAILY 05/30/24 11/30/24 1,000 mcg tablet (Vitamin B-12) magnesium oxide 400 mg PO QAM 05/30/24 11/30/24 meloxicam 7.5 mg tablet 7.5 mg PO DAILY 05/30/24 11/30/24 ondansetron 4 mg disintegrating See Rx Instructions .Route 05/30/24 11/30/24 tablet .COMPLEX PRN Nausea metformin 500 mg tablet mg PO 09/30/24 11/30/24 pioglitazone 15 mg tablet mg PO 09/30/24 11/30/24 Previous Rx's ?Medication ?Instructions ?Recorded albuterol sulfate 90 mcg/actuation 1 inh inhalation Q6H PRN shortness 04/05/23 aerosol inhaler (Ventolin HFA) of breath or wheezing #6.7 grams doxepin 25 mg capsule See Rx Instructions .Route 07/02/24 .COMPLEX #60 caps hydroxyzine HCl 25 mg tablet 25 mg PO BID PRN anxiety or sleep 07/02/24 #60 tabs aripiprazole 15 mg tablet 15 mg PO QAM #30 tabs 10/04/24 desvenlafaxine succinate 100 mg 100 mg PO QAM #30 tabs 10/04/24 tablet,extended release 24 hr (Pristiq) methocarbamol 500 mg tablet 500 mg PO Q8H #20 tabs 12/08/24 prednisone 10 mg tablet 10 mg PO DAILY 6 days #20 tabs 12/08/24 tramadol 50 mg tablet 50 mg PO Q6H PRN pain #20 tabs 12/08/24 Allergies Allergy/AdvReac Type Severity Reaction Status Date / Time carisoprodol (From Soma) Allergy Unknown unknown Verified 12/13/24 15:14 rofecoxib (From Vioxx) Allergy Unknown UNKNOWN Verified 12/13/24 15:14 Lnnxypb-ZYC-GrX Reductase Allergy Unknown unknown Verified 12/13/24 15:14 Inhibitor (Gfthhja-Qvl-Jvh Reductase Inhibitor) sumatriptan (From Imitrex) Allergy Unknown unknown Verified 12/13/24 15:14 Review of Systems Musc: Reports: joint pain (L knee); Denies: joint swelling, joint redness or joint warmth Neuro: Denies: numbness in extremities or sensory changes PFSH ED PFSH: Medical History Anticipatory grief Psychiatric care Insomnia BENITO on CPAP Major depressive disorder, recurrent, moderate Surgical History H/O: hysterectomy H/O tubal ligation H/O rotator cuff surgery Family History Sister Ovarian cancer Diabetes Stroke TIA Brother Diabetes Hypertension Mother Diabetes Father Stroke Grandmother Stroke Paternal Other Stomach cancer Denies family history of Colon cancer Heart disease Hyperlipidemia Breast cancer Uterine cancer Thyroid disease Social History Smoking and tobacco/nicotine status: never used tobacco/nicotine Physical Exam Const: COMMON NORMALS: no acute distress, patient oriented x3, no limitations, alert and well nourished GENERAL APPEARANCE: cooperative NUTRITIONAL APPEARANCE: obese Extremity: COMMON NORMALS: capillary refill normal, no clubbing, cyanosis or edema, no calf tenderness and no pedal edema GENERAL: Yes normal exam except as noted LEFT LOWER EXTREMITY: Yes knee joint (TTP medial L knee; micromovements of knee are normal w/o much pain) Left knee: Yes inspection (normal gross inspection), Yes palpation (TTP medially), Yes ROM (fairly normal ROM-no pain out of proportion) and Yes neurovascular exam (normal) Neuro: COMMON NORMALS: patient oriented x3, moves all extremities, no focal motor deficits and no sensory deficits noted SENSORIUM/ORIENTATION: Yes alert Course Vital Signs: Vital signs: Vital Signs Temperature 98.0 F 12/13/24 15:10 Pulse Rate 80 12/13/24 15:37 Respiratory Rate 16 12/13/24 15:37 Blood Pressure 157/72 12/13/24 15:37 Pulse Oximetry 96 12/13/24 15:37 Oxygen Delivery Me thod Room Air 12/13/24 15:10 MDM - Extremity Injury (Lower) Medical Decision Making Patient states last time she received IM medications, they did give her some relief so these were provided today. I do not feel she needs repeat imaging on her knee today as I x-rayed her knee on her last visit. She has an appointment scheduled tomorrow with her secretary specialist. Medical Records I reviewed the patient's medical records. No radiology studies performed this visit Discharge Plan Discharge Patient Disposition: Home Clinical Impression: Left knee pain Qualifiers: Chronicity: acute Qualified Code(s): M25.562 - Pain in left knee Condition: Stable Prescriptions: No Action ezetimibe 10 mg tablet 10 mg PO BEDTIME levothyroxine 100 mcg capsule 100 mcg PO QAM lisinopril 5 mg tablet 5 mg PO QAM glucosamine-chondroitin 900 mg tablet 900 mg PO BID doxepin 25 mg capsule See Rx Instructions .ROUTE .COMPLEX Qty: 60 3RF Dose Instruction: TAKE 1 TO 2 CAPSULES BY MOUTH ONCE DAILY AT BEDTIME Rx Instructions: TAKE 1 TO 2 CAPSULES BY MOUTH ONCE DAILY AT BEDTIME hydroxyzine HCl 25 mg tablet 25 mg PO BID PRN (Reason: anxiety or sleep) Qty: 60 3RF aripiprazole 15 mg tablet 15 mg PO QAM Qty: 30 5RF desvenlafaxine succinate [Pristiq] 100 mg tablet extended release 24 hr 100 mg PO QAM Qty: 30 5RF pioglitazone 15 mg tablet PO metformin 500 mg tablet PO cetirizine [Zyrtec] 10 mg Tablet 10 mg PO BEDTIME multivitamin Tablet 1 tab PO QAM primidone 50 mg tablet 50 mg PO BID albuterol sulfate [Ventolin HFA] 90 mcg/actuation HFA aerosol inhaler 1 inh inhalation Q6H PRN (Reason: shortness of breath or wheezing) Qty: 6.7 0RF cyanocobalamin (vitamin B-12) [Vitamin B-12] 1,000 mcg Tablet 1,000 mcg PO DAILY meloxicam 7.5 mg tablet 7.5 mg PO DAILY ondansetron 4 mg tablet,disintegrating See Rx Instructions .ROUTE .COMPLEX PRN (Reason: Nausea) Rx Instructions: PLACE 1 TABLET BY TRANSLINGUAL ROUTE EVERY 8 HOURS ON TOP OF THE TONGUE WHERE IT WILL DISSOLVE , THEN SWALLOW NEEDED FOR NAUSEA. magnesium oxide 400 mg magnesium Tablet 400 mg PO QAM prednisone 10 mg tablet 10 mg PO DAILY 6 Days Qty: 20 0RF Rx Instructions: Take 5 tabs on day 1-2, 4 tabs on day 3, 3 tabs on day 4, 2 tabs on day 5, and 1 tab on day 6 tramadol 50 mg tablet 50 mg PO Q6H PRN (Reason: pain) Qty: 20 0RF methocarbamol 500 mg tablet 500 mg PO Q8H Qty: 20 0RF Discharge Orders: Discharge ED (Routine); Ordered 12/13/24 Ordered By: Karen Larry Referrals: [facility] Adrian, KANCHAN [Primary Care Provider] Patient Instructions: Opioid Safety, Pain Management, Patient Portal & Raheel Instructions Activity Restrictions/Additional Instructions: Please follow-up with Dr. Adams tomorrow as scheduled. 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
[2024-12-13 15:36] VITALS: RESP 16
[2024-12-13] MEDS: morphine 4 mg/mL SDV 1 mL IM (15:36)
[2024-12-13] MEDS: ketorolac 60 mg/2 mL INJ IM (15:36)
[2024-12-13] MEDS: dexamethasone 10 mg/mL INJ 8 MG IM (15:36)
[2024-12-13 15:37] VITALS: BP 157/72; PULSE 80; RESP 16; O2SAT 96
== END 2024-12-13 15:38 | disposition home or self-care (01) ==
PROVIDERS: Emergency Provider Physician Assistant; PCP Nurse Practitioner Family
DX: M25.562 Pain in left knee (principal); Z79.82 Long term (current) use of aspirin
CPT/HCPCS: 96372; 99284; J1100; J1885; J2270

== ENCOUNTER 2024-12-14 05:00 | Outpatient (RCR) | payer OTHER, SELFPAY | END 2025-01-13 23:59 | disposition home or self-care (01) | LOC: SPT 05:00 | PROVIDERS: PCP Nurse Practitioner Family; Visit Provider Orthopaedic Surgery | DX: M25.562 Pain in left knee (principal) | CPT/HCPCS: 97110 ==

== ENCOUNTER 2024-12-20 08:43 | Outpatient (CLI) | payer OTHER, SELFPAY ==
--- NOTE | 2024-12-20 08:56 | MM_ITS ---
WS: [id number] BILATERAL 3D TOMOSYNTHESIS DIGITAL DIAGNOSTIC MAMMOGRAPHY WITH CAD CLINICAL INFORMATION: MASS IN THE RIGHT BREAST HISTORY: Additional views COMPARISON: 11/18/2024 TECHNIQUE: Bilateral CC, MLO, and ML views. FINDINGS: Scattered fibroglandular densities bilaterally. Small nodules along the posterior nipple line are faintly visualized. Ultrasound is pending. Stable asymmetric density upper outer LEFT breast persist on the spot compression views. Ultrasound is pending. ULTRASOUND BREAST BILATERAL TECHNIQUE: Ultrasound bilateral breast focused area of concern. CLINICAL INFORMATION: MASS IN THE RIGHT BREAST FINDINGS: RIGHT BREAST: No suspicious abnormalities in the area of concern. Tiny incidental cyst retroareolar LEFT BREAST: No suspicious abnormalities in the area of concern. Incidental cyst at the 2 o'clock position measuring 7 x 5 mm. No suspicious lesions to target for biopsy. Recommend return to annual screening mammography. MM/MM diag BI tomosynthesis [id number] IMPRESSION: DENSITY: There are scattered areas of fibroglandular density. BI-RADS: 2 - Benign. FOLLOW UP: 1 Year Follow-up Recommend return to annual screening mammography.
== END 2024-12-20 08:44 | disposition home or self-care (01) ==
PROVIDERS: PCP Nurse Practitioner Family; Visit Provider Nurse Practitioner Family
DX: Z12.31 Encounter for screening mammogram for malignant neoplasm of breast (principal); R92.323 Mammographic fibroglandular density, bilateral breasts; R92.8 Other abnormal and inconclusive findings on diagnostic imaging of breast; N60.01 Solitary cyst of right breast; N60.02 Solitary cyst of left breast
CPT/HCPCS: 76642; 77062; G0279

== ENCOUNTER 2025-01-01 11:56 | Emergency (ER) | payer OTHER, SELFPAY ==
--- OUTSIDE RECORDS SUMMARY | 2025-01-01 12:01 | XMS_ITS | Clinical Summary ---
Author Organization [facility] Address [address] [place]: Epic Prelude ADT [place] [id number] Care Team Providers Care Biodiesel Division Manager Name Role Phone Rupert Morrison MD Primary Care Provider Allergies Active Allergy Reactions Criticality Noted Date Comments Carisoprodol Weakness High 11/27/2010 Rofecoxib Shortness of Breath/Wheezing High 011 Sumatriptan Succinate Shortness of Breath/Wheezing High 11/27/2010 Medications ARIPiprazole (ABILIFY) 15 mg tablet Take 1 Tablet by mouth daily. 4 Active cetirizine (ZyrTEC) 10 mg tablet Take 10 mg by mouth daily. 4 Active desvenlafaxine (PRISTIQ) 100 mg Extended Release 24 hour tablet Take 100 mg by mouth daily with breakfast. 3 Active doxepin (SINEquan) 25 mg capsule Take 25 mg by mouth daily at bedtime. 4 Active ezetimibe (ZETIA) 10 mg tablet Take 10 mg by mouth daily. 4 Active hydrOXYzine HCL (ATARAX) 25 mg tablet Take 25 mg by mouth daily at bedtime. 4 Active levothyroxine 100 mcg tablet Take 1 Tablet by mouth daily. 4 Active lisinopriL (PRINIVIL) 5 mg tablet Take 5 mg by mouth daily. 4 Active promethazine (PHENERGAN) 25 mg tablet Take 25 mg by mouth every 6 hours as needed for Nausea. 4 Active diazePAM (Valium) 5 mg tabletIndicatio ns:DDD (degenerative disc disease), lumbar Take 1 Tablet (5 mg) by mouth one time for 1 dose. 1 Tablet 4 Active Januvia 100 mg Tablet Take 1 Tablet by mouth daily. 4 Active meloxicam (MOBIC) 7.5 mg tablet Take 1 tablet by mouth once daily 30 Tablet 5 Active meloxicam (MOBIC) 7.5 mg tablet Take 1 tablet by mouth once daily 30 Tablet 3 5 12/14/19 25 Discontinued Active Problems No known active problems Encounters Date Type Department Care Team Description 12/13/2024 Refill [facility] [address] [place] [address] Gardenia Guardado, KANCHAN 12/07/2024 External Device Data STL ABSTRACTION Provider, [...] drink = 0.6 oz pur e alcohol) Comments No Sex and Gender Information Value Date Recorded Sex Assigned at Not on file Legal Sex Female 9:51 AM INSTRUMENTATION FITTER Gender Identity Not on file Sexual Orientation [...] 2010 ZOSTER VACCINE (1 of 2) 2015 BREAST CANCER SCREENING 07/30/2024 07/30/2023 INFLUENZA VACCINE (#1) 2025 9, 04/15/2008, 04/02/2007, Additional history exists Procedures Procedure Name Priority Date/Time Associated Diagnosis Comments MAMMO 3D GREGORY DIAGNOSTIC BILAT W OR WO CAD Routine 07/30/2023 8:58 AM INSTRUMENTATION FITTER Mastodynia Pain in left upper arm from Last 3 Months or Most Recently Relevant to Health Maintenance Results * MAMMO 3D GREGORY DIAGNOSTIC BILAT W OR WO CAD (07/30/2023 8:58 AM INSTRUMENTATION FITTER) Anatomical Region Laterality Modality Breast Bilateral Mammography 07/30/2023 3:05 PM INSTRUMENTATION FITTER Impressions 07/31/2023 1:18 PM INSTRUMENTATION FITTER IMPRESSION: 1. No radiographic evidence of malignancy. 2. BI-RADS Category 1. Narrative 07/31/2023 1:18 PM INSTRUMENTATION FITTER Exam: MAMMO 3D GREGORY DIAGNOSTIC BILAT W OR WO CAD Date/Time of Exam: 07/30/2023 8:58 AM Reason For Exam: See Diagnosis Diagnosis: Mastodynia; Pain in left upper arm This mammogram was also analyzed by the Computer Aided Detection System (CAD), [email or web address], Version 8.7. Bilateral 3-D gregory mammograms were obtained in the CC and MLO projections. The study was performed for evaluation of pain in the upper outer quadrant of the left breast. Comparison is to a prior study from 08/15/2022. There is no evidence of any dominant mass, suspicious microcalcifications, architectural distortions or developing densities. The breasts are fatty replaced. Dimple KINSYE MAMMO ORDERABLES Final Result from Last 3 Months or Most Recently Relevant to Health Maintenance [facility] [place] Care Teams Biodiesel Division Manager Relationship Specialty Start Date End Date Rupert Morrison MD [facility] [address] [place] [address] PCP - General Family Practice 11/27/10
[2025-01-01 12:12] VITALS: BP 137/84; PULSE 83; RESP 18; TEMP 36.5; O2SAT 95; BMI 45.8
--- NOTE | 2025-01-01 13:17 | W.ED.EXTPRO ---
Documented by User: AMELIE Stafford 01/01/25 13:24 HPI - Extremity Problem General: Chief complaint: Extremity Injury, Lower Stated complaint: Lt. Knee pain Time Seen by Provider: 01/01/25 13:00 Source: patient Mode of arrival: ambulatory Limitations: no limitations History of Present Illness: This patient is a 59-year-old female with multiple prior visits who is presenting for continued left knee pain. Initial injury was back in September, I did personally see her she had a hyperextension injury and subsequent MRI that month showing moderate tricompartmental arthritis. She has been following up with orthopedics and had arthroscopic knee surgery at the beginning of October. Since then she has had multiple visits here in the ED for continued pain, has been treated with IM medications and with the last visit was prescribed tramadol which patient states she has since ran out of. Since running out states that her pain has been a 10/10. 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 She has had cortisone injections with Dr. Adams, she states this does give her quite a bit of relief but once it wears off she starts to have severe pain again. She tells me that she has been still doing jjcf-lps-pueedxk remedies at home such as elevating and icing, states that she has since stopped icing because it makes her pain worse. At this time her vitals are normal, afebrile she is not having any vomiting or nausea. No calf swelling or distal neurovascular symptoms otherwise. There is no new injury to report or trauma. She was noted to be ambulatory into the emergency department. With her last visit here in the ED a couple weeks ago, states that she received IM medications and this did help. Complaint: joint pain Onset (ago): month(s) Pain Consistency: constant Location: left and knee Severity scale (1-10): 10 Radiation: none Relieving factors: medication Exacerbating factors: range of motion and weight bearing Associated symptoms: Reports no associated symptoms; Deny chest pain, fever(s) or rash Context: recent surgery/procedure Related Data Home Medications ?Medication ?Instructions ?Recorded ?Confirmed levothyroxine 100 mcg capsule 100 mcg PO QAM 09/02/19 12/31/24 lisinopril 5 mg tablet 5 mg PO QAM 09/02/19 12/31/24 ezetimibe 10 mg tablet 10 mg PO BEDTIME 01/08/20 12/31/24 cetirizine 10 mg tablet (Zyrtec) 10 mg PO BEDTIME 02/21/20 12/31/24 multivitamin 1 tab PO QAM 12/25/22 12/31/24 primidone 50 mg tablet 50 mg PO BID 04/05/23 12/31/24 antiarthritic combination no.2 900 900 mg PO BID 02/11/24 12/31/24 mg tablet (glucosamine-chondroitin) cyanocobalamin (vitamin B-12) 1,000 mcg PO DAILY 05/30/24 12/31/24 1,000 mcg tablet (Vitamin B-12) magnesium oxide 400 mg PO QAM 05/30/24 12/31/24 meloxicam 7.5 mg tablet 7.5 mg PO DAILY 05/30/24 12/31/24 ondansetron 4 mg disintegrating See Rx Instructions .Route 05/30/24 12/31/24 tablet .COMPLEX PRN Nausea metformin 500 mg tablet mg PO 09/30/24 12/31/24 pioglitazone 15 mg tablet mg PO 09/30/24 12/31/24 prednisone 10 mg tablet mg PO 12/14/24 12/31/24 Previous Rx's ?Medication ?Instructions ?Recorded albuterol sulfate 90 mcg/actuation 1 inh inhalation Q6H PRN shortness 04/05/23 aerosol inhaler (Ventolin HFA) of breath or wheezing #6.7 grams doxepin 25 mg capsule See Rx Instructions .Route 07/02/24 .COMPLEX #60 caps hydroxyzine HCl 25 mg tablet 25 mg PO BID PRN anxiety or sleep 07/02/24 #60 tabs aripiprazole 15 mg tablet 15 mg PO QAM #30 tabs 10/04/24 desvenlafaxine succinate 100 mg 100 mg PO QAM #30 tabs 10/04/24 tablet,extended release 24 hr (Pristiq) methocarbamol 500 mg tablet 500 mg PO Q8H #20 tabs 12/08/24 tramadol 50 mg tablet 50 mg PO Q6H PRN pain #20 tabs 12/08/24 Allergies Allergy/AdvReac Type Severity Reaction Status Date / Time carisoprodol (From Soma) Allergy Unknown unknown Verified 01/01/25 12:17 rofecoxib (From Vioxx) Allergy Unknown UNKNOWN Verified 01/01/25 12:17 Rmenibx-PVE-SjA Reductase Allergy Unknown unknown Verified 01/01/25 12:17 Inhibitor (Rardsgj-Pgx-Scb Reductase Inhibitor) sumatriptan (From Imitrex) Allergy Unknown unknown Verified 01/01/25 12:17 Review of Systems General: Reports: 10 or more systems reviewed and unremarkable except in HPI and below Const: Denies: fever(s) or chills Card: Denies: chest pain Resp: Denies: dyspnea or productive cough GI: Denies: abdominal pain, nausea, vomiting or diarrhea : Denies: flank pain Musc: Reports: joint pain and limited range of motion; Denies: neck pain, back pain, extremity pain, extremity swelling, joint swelling, joint redness, joint warmth or muscle weakness Skin/Breast: Denies: rash Neuro: Denies: headache(s), numbness in extremities or weakness in extremities PFSH ED PFSH: Medical History Anticipatory grief Psychiatric care Insomnia BENITO on CPAP Major depressive disorder, recurrent, moderate Surgical History H/O: hysterectomy H/O tubal ligation H/O rotator cuff surgery Family History Sister Ovarian cancer Diabetes Stroke TIA Brother Diabetes Hypertension Mother Diabetes Father Stroke Grandmother Stroke Paternal Other Stomach cancer Denies family history of Colon cancer Heart disease Hyperlipidemia Breast cancer Uterine cancer Thyroid disease Social History Smoking and tobacco/nicotine status: never used tobacco/nicotine Physical Exam Const: COMMON NORMALS: patient oriented x3, no limitations and alert NUTRITIONAL APPEARANCE: obese morbidly obese ORIENTATION/CONSCIOUSNESS: Yes awake Resp: COMMON NORMALS: normal respiratory effort, No use of accessory muscles and clear to auscultation bilaterally AUSCULTATION: clear to auscultation bilaterally Cardio: COMMON NORMALS: regular rate and regular rhythm RATE: regular rate RHYTHM: regular rhythm Extremity: NARRATIVE EXTREMITY EXAM: No obvious swelling of the left knee. No warmth or erythema. Postoperative incisions present and well-healed. No popliteal space tenderness, no tenderness to the calf. Distal neurovascular exam is intact with good peripheral pulses. Antalgic gait, though is able to ambulate. Difficult to appreciate any joint laxity or effusion secondary to body habitus. Neuro: COMMON NORMALS: patient oriented x3, moves all extremities, no focal motor deficits and no sensory deficits noted SENSORIUM/ORIENTATION: Yes alert Course Vital Signs: Vital signs: Vital Signs Temperature 97.7 F 01/01/25 12:12 Pulse Rate 88 01/01/25 13:24 Respiratory Rate 18 01/01/25 13:24 Blood Pressure 140/87 01/01/25 13:24 Pulse Oximetry 98 01/01/25 13:24 Oxygen Delivery Me thod Room Air 01/01/25 12:12 MDM - Extremity (Nontraumatic) Medical Decision Making Patient seen here multiple times for chronic left knee pain, had arthroscopic knee surgery in October due to arthritis. Has ran out of medications at home that we prescribed from the ER with last visit, states since that her pain has been 10 out of 10 and she has not had a cortisone injection for a couple of weeks. No concern for septic joint here and there is no new trauma to report that would warrant any repeat imaging. I do not suspect any acute complication, suspect that this is her chronic knee pain and there is element of improper maintenance at home as she states that she has continued to work long shifts despite being in pain. Here she is given medications and encouraged to continue her follow-ups and begin proper cryotherapy and elevation/compression at home. She may require physical therapy in the future and ultimately is informed to just watch for any signs of infection and to avoid any new trauma. No radiology studies performed this visit Discharge Plan Discharge Patient Disposition: Home Clinical Impression: Chronic post-operative pain Condition: Stable Prescriptions: No Action ezetimibe 10 mg tablet 10 mg PO BEDTIME levothyroxine 100 mcg capsule 100 mcg PO QAM lisinopril 5 mg tablet 5 mg PO QAM glucosamine-chondroitin 900 mg tablet 900 mg PO BID doxepin 25 mg capsule See Rx Instructions .ROUTE .COMPLEX Qty: 60 3RF Dose Instruction: TAKE 1 TO 2 CAPSULES BY MOUTH ONCE DAILY AT BEDTIME Rx Instructions: TAKE 1 TO 2 CAPSULES BY MOUTH ONCE DAILY AT BEDTIME hydroxyzine HCl 25 mg tablet 25 mg PO BID PRN (Reason: anxiety or sleep) Qty: 60 3RF aripiprazole 15 mg tablet 15 mg PO QAM Qty: 30 5RF desvenlafaxine succinate [Pristiq] 100 mg tablet extended release 24 hr 100 mg PO QAM Qty: 30 5RF pioglitazone 15 mg tablet PO metformin 500 mg tablet PO prednisone 10 mg tablet PO cetirizine [Zyrtec] 10 mg Tablet 10 mg PO BEDTIME multivitamin Tablet 1 tab PO QAM primidone 50 mg tablet 50 mg PO BID albuterol sulfate [Ventolin HFA] 90 mcg/actuation HFA aerosol inhaler 1 inh inhalation Q6H PRN (Reason: shortness of breath or wheezing) Qty: 6.7 0RF cyanocobalamin (vitamin B-12) [Vitamin B-12] 1,000 mcg Tablet 1,000 mcg PO DAILY meloxicam 7.5 mg tablet 7.5 mg PO DAILY ondansetron 4 mg tablet,disintegrating See Rx Instructions .ROUTE .COMPLEX PRN (Reason: Nausea) Rx Instructions: PLACE 1 TABLET BY TRANSLINGUAL ROUTE EVERY 8 HOURS ON TOP OF THE TONGUE WHERE IT WILL DISSOLVE , THEN SWALLOW NEEDED FOR NAUSEA. magnesium oxide 400 mg magnesium Tablet 400 mg PO QAM tramadol 50 mg tablet 50 mg PO Q6H PRN (Reason: pain) Qty: 20 0RF methocarbamol 500 mg tablet 500 mg PO Q8H Qty: 20 0RF Discharge Orders: Discharge ED (Routine); Ordered 01/01/25 Ordered By: Remi Can Referrals: Villa Adrian FNP [Primary Care Provider] Patient Instructions: Opioid Safety, Pain Management, Patient Portal & Raheel Instructions Activity Restrictions/Additional Instructions: Left Knee Arthroscopy Discharge Discharge Instructions: Chronic Postoperative Left Knee Pain After Arthroscopy Diagnosis/Procedure: Chronic postoperative left knee pain, status post arthroscopic procedure. Medications: - Continue prescribed pain medications as directed. For most patients, a multimodal regimen is recommended: - Acetaminophen 1000 mg orally every 6 hours as needed for pain, not to exceed 3000 mg per 24 hours in adults with normal liver function. - NSAIDs (e.g., ibuprofen 400?600 mg orally every 6?8 hours as needed, with food, for up to 2 weeks), unless contraindicated (renal insufficiency, peptic ulcer disease, etc.). Topical NSAIDs may be considered for improved safety. - Opioids should be used only if pain is not controlled with acetaminophen and NSAIDs, and for the shortest duration possible. If prescribed, take only as needed and begin tapering as pain improves. Avoid alcohol and other sedatives while taking opioids. Dispose of unused opioids safely. - Adjuncts: If nausea occurs, use ondansetron or dimenhydrinate as prescribed. Non-Pharmacologic Management: - Cryotherapy: Apply ice or a cryocompression device to the knee for 20 minutes every 2?3 hours while awake for the first 48?72 hours to reduce pain and swelling. Cryotherapy has demonstrated benefit in reducing pain and opioid consumption after arthroscopy. - Elevation and Compression: Elevate the leg above heart level and use a compression wrap as instructed to minimize swelling. - Physical Therapy: Early gentle [id number] and quadriceps activation exercises are encouraged. Most patients can return to light activity (walking, household tasks) within 1?2 weeks, with progressive return to full activity by 4 weeks, barring complications. Formal outpatient physical therapy may be considered, especially for complex procedures or persistent functional deficits. - Neuromuscular Electrical Stimulation (NMES): May be considered to improve quadriceps strength and knee function during recovery. Activity: - Weight-bearing as tolerated unless otherwise specified by the surgical team. - Avoid high-impact activities, twisting, or pivoting until cleared by orthopedics. - Driving may resume when able to ambulate safely without narcotics and with adequate control of the operative leg. Wound Care: - Keep incisions clean and dry. Remove dressings as instructed. Monitor for signs of infection (increased redness, swelling, drainage, fever). Follow-Up: - Schedule follow-up with orthopedics as directed, typically within 1?2 weeks postoperatively. - Contact the clinic or return to the emergency department for: - Uncontrolled pain or swelling - Signs of infection (fever, chills, purulent drainage) - New or worsening numbness, weakness, or inability to move the leg Work Note: - Patient is excused from work/school from [date] to [date], or until cleared by orthopedics. Activity restrictions and [id number] date will be determined at follow-up based on recovery and job demands. Additional Considerations: - For patients with chronic postsurgical pain or neuropathic features, consider adjunctive therapies (e.g., transcutaneous electrical nerve stimulation, lidocaine patches, or referral for pain management if pain persists). - Psychological support or cognitive behavioral therapy may be beneficial for those with significant pain-related distress. Patient Education: - Review the pain management plan, including safe use and tapering of medications, and the importance of non-pharmacologic strategies. - Reinforce the need for follow-up and clear instructions on when to seek urgent care. 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 Knee pain Time Seen by Provider: 01/01/25 13:00 Related Data Home Medications ?Medication ?Instructions ?Recorded ?Confirmed levothyroxine 100 mcg capsule 100 mcg PO QAM 09/02/19 12/31/24 lisinopril 5 mg tablet 5 mg PO QAM 09/02/19 12/31/24 ezetimibe 10 mg tablet 10 mg PO BEDTIME 01/08/20 12/31/24 cetirizine 10 mg tablet (Zyrtec) 10 mg PO BEDTIME 02/21/20 12/31/24 multivitamin 1 tab PO QAM 12/25/22 12/31/24 primidone 50 mg tablet 50 mg PO BID 04/05/23 12/31/24 antiarthritic combination no.2 900 900 mg PO BID 02/11/24 12/31/24 mg tablet (glucosamine-chondroitin) cyanocobalamin (vitamin B-12) 1,000 mcg PO DAILY 05/30/24 12/31/24 1,000 mcg tablet (Vitamin B-12) magnesium oxide 400 mg PO QAM 05/30/24 12/31/24 meloxicam 7.5 mg tablet 7.5 mg PO DAILY 05/30/24 12/31/24 ondansetron 4 mg disintegrating See Rx Instructions .Route 05/30/24 12/31/24 tablet .COMPLEX PRN Nausea metformin 500 mg tablet mg PO 09/30/24 12/31/24 pioglitazone 15 mg tablet mg PO 09/30/24 12/31/24 prednisone 10 mg tablet mg PO 12/14/24 12/31/24 Previous Rx's ?Medication ?Instructions ?Recorded albuterol sulfate 90 mcg/actuation 1 inh inhalation Q6H PRN shortness 04/05/23 aerosol inhaler (Ventolin HFA) of breath or wheezing #6.7 grams doxepin 25 mg capsule See Rx Instructions .Route 07/02/24 .COMPLEX #60 caps hydroxyzine HCl 25 mg tablet 25 mg PO BID PRN anxiety or sleep 07/02/24 #60 tabs aripiprazole 15 mg tablet 15 mg PO QAM #30 tabs 10/04/24 desvenlafaxine succinate 100 mg 100 mg PO QAM #30 tabs 10/04/24 tablet,extended release 24 hr (Pristiq) methocarbamol 500 mg tablet 500 mg PO Q8H #20 tabs 12/08/24 tramadol 50 mg tablet 50 mg PO Q6H PRN pain #20 tabs 12/08/24 Allergies Allergy/AdvReac Type Severity Reaction Status Date / Time carisoprodol (From Soma) Allergy Unknown unknown Verified 01/01/25 12:17 rofecoxib (From Vioxx) Allergy Unknown UNKNOWN Verified 01/01/25 12:17 Upbfsxr-ZTV-VaF Reductase Allergy Unknown unknown Verified 01/01/25 12:17 Inhibitor (Yqdnxlc-Vwi-Bin Reductase Inhibitor) sumatriptan (From Imitrex) Allergy Unknown unknown Verified 01/01/25 12:17 PFSH ED PFSH: Medical History Anticipatory grief Psychiatric care Insomnia BENITO on CPAP Major depressive disorder, recurrent, moderate Surgical History H/O: hysterectomy H/O tubal ligation H/O rotator cuff surgery Family History Sister Ovarian cancer Diabetes Stroke TIA Brother Diabetes Hypertension Mother Diabetes Father Stroke Grandmother Stroke Paternal Other Stomach cancer Denies family history of Colon cancer Heart disease Hyperlipidemia Breast cancer Uterine cancer Thyroid disease Social History Smoking and tobacco/nicotine status: never used tobacco/nicotine Course Vital Signs: Vital signs: Vital Signs Temperature 97.7 F 01/01/25 12:12 Pulse Rate 88 01/01/25 13:24 Respiratory Rate 18 01/01/25 13:24 Blood Pressure 140/87 01/01/25 13:24 Pulse Oximetry 98 01/01/25 13:24 Oxygen Delivery Me thod Room Air 01/01/25 12:12 MDM - Extremity (Nontraumatic) Medical Decision Making Patient seen here multiple times for chronic left knee pain, had arthroscopic knee surgery in October due to arthritis. Has ran out of medications at home that we prescribed from the ER with last visit, states since that her pain has been 10 out of 10 and she has not had a cortisone injection for a couple of weeks. No concern for septic joint here and there is no new trauma to report that would warrant any repeat imaging. I do not suspect any acute complication, suspect that this is her chronic knee pain and there is element of improper maintenance at home as she states that she has continued to work long shifts despite being in pain. Here she is given medications and encouraged to continue her follow-ups and begin proper cryotherapy and elevation/compression at home. She may require physical therapy in the future and ultimately is informed to just watch for any signs of infection and to avoid any new trauma. Chart reviewed and patient discussed with midlevel. Agree with assessment and plan. Discharge Plan Discharge Patient Disposition: Home Clinical Impression: Chronic post-operative pain Condition: Stable Prescriptions: No Action ezetimibe 10 mg tablet 10 mg PO BEDTIME levothyroxine 100 mcg capsule 100 mcg PO QAM lisinopril 5 mg tablet 5 mg PO QAM glucosamine-chondroitin 900 mg tablet 900 mg PO BID doxepin 25 mg capsule See Rx Instructions .ROUTE .COMPLEX Qty: 60 3RF Dose Instruction: TAKE 1 TO 2 CAPSULES BY MOUTH ONCE DAILY AT BEDTIME Rx Instructions: TAKE 1 TO 2 CAPSULES BY MOUTH ONCE DAILY AT BEDTIME hydroxyzine HCl 25 mg tablet 25 mg PO BID PRN (Reason: anxiety or sleep) Qty: 60 3RF aripiprazole 15 mg tablet 15 mg PO QAM Qty: 30 5RF desvenlafaxine succinate [Pristiq] 100 mg tablet extended release 24 hr 100 mg PO QAM Qty: 30 5RF pioglitazone 15 mg tablet PO metformin 500 mg tablet PO prednisone 10 mg tablet PO cetirizine [Zyrtec] 10 mg Tablet 10 mg PO BEDTIME multivitamin Tablet 1 tab PO QAM primidone 50 mg tablet 50 mg PO BID albuterol sulfate [Ventolin HFA] 90 mcg/actuation HFA aerosol inhaler 1 inh inhalation Q6H PRN (Reason: shortness of breath or wheezing) Qty: 6.7 0RF cyanocobalamin (vitamin B-12) [Vitamin B-12] 1,000 mcg Tablet 1,000 mcg PO DAILY meloxicam 7.5 mg tablet 7.5 mg PO DAILY ondansetron 4 mg tablet,disintegrating See Rx Instructions .ROUTE .COMPLEX PRN (Reason: Nausea) Rx Instructions: PLACE 1 TABLET BY TRANSLINGUAL ROUTE EVERY 8 HOURS ON TOP OF THE TONGUE WHERE IT WILL DISSOLVE , THEN SWALLOW NEEDED FOR NAUSEA. magnesium oxide 400 mg magnesium Tablet 400 mg PO QAM tramadol 50 mg tablet 50 mg PO Q6H PRN (Reason: pain) Qty: 20 0RF methocarbamol 500 mg tablet 500 mg PO Q8H Qty: 20 0RF Discharge Orders: Discharge ED (Routine); Ordered 01/01/25 Ordered By: Remi Can Referrals: Villa Adrian FNP [Primary Care Provider] Patient Instructions: Opioid Safety, Pain Management, Patient Portal & Raheel Instructions Activity Restrictions/Additional Instructions: Left Knee Arthroscopy Discharge Discharge Instructions: Chronic Postoperative Left Knee Pain After Arthroscopy Diagnosis/Procedure: Chronic postoperative left knee pain, status post arthroscopic procedure. Medications: - Continue prescribed pain medications as directed. For most patients, a multimodal regimen is recommended: - Acetaminophen 1000 mg orally every 6 hours as needed for pain, not to exceed 3000 mg per 24 hours in adults with normal liver function. - NSAIDs (e.g., ibuprofen 400?600 mg orally every 6?8 hours as needed, with food, for up to 2 weeks), unless contraindicated (renal insufficiency, peptic ulcer disease, etc.). Topical NSAIDs may be considered for improved safety. - Opioids should be used only if pain is not controlled with acetaminophen and NSAIDs, and for the shortest duration possible. If prescribed, take only as needed and begin tapering as pain improves. Avoid alcohol and other sedatives while taking opioids. Dispose of unused opioids safely. - Adjuncts: If nausea occurs, use ondansetron or dimenhydrinate as prescribed. Non-Pharmacologic Management: - Cryotherapy: Apply ice or a cryocompression device to the knee for 20 minutes every 2?3 hours while awake for the first 48?72 hours to reduce pain and swelling. Cryotherapy has demonstrated benefit in reducing pain and opioid consumption after arthroscopy. - Elevation and Compression: Elevate the leg above heart level and use a compression wrap as instructed to minimize swelling. - Physical Therapy: Early gentle vytxh-[id number] and quadriceps activation exercises are encouraged. Most patients can return to light activity (walking, household tasks) within 1?2 weeks, with progressive return to full activity by 4 weeks, barring complications. Formal outpatient physical therapy may be considered, especially for complex procedures or persistent functional deficits. - Neuromuscular Electrical Stimulation (NMES): May be considered to improve quadriceps strength and knee function during recovery. Activity: - Weight-bearing as tolerated unless otherwise specified by the surgical team. - Avoid high-impact activities, twisting, or pivoting until cleared by orthopedics. - Driving may resume when able to ambulate safely without narcotics and with adequate control of the operative leg. Wound Care: - Keep incisions clean and dry. Remove dressings as instructed. Monitor for signs of infection (increased redness, swelling, drainage, fever). Follow-Up: - Schedule follow-up with orthopedics as directed, typically within 1?2 weeks postoperatively. - Contact the clinic or return to the emergency department for: - Uncontrolled pain or swelling - Signs of infection (fever, chills, purulent drainage) - New or worsening numbness, weakness, or inability to move the leg Work Note: - Patient is excused from work/school from [date] to [date], or until cleared by orthopedics. Activity restrictions and [id number] date will be determined at follow-up based on recovery and job demands. Additional Considerations: - For patients with chronic postsurgical pain or neuropathic features, consider adjunctive therapies (e.g., transcutaneous electrical nerve stimulation, lidocaine patches, or referral for pain management if pain persists). - Psychological support or cognitive behavioral therapy may be beneficial for those with significant pain-related distress. Patient Education: - Review the pain management plan, including safe use and tapering of medications, and the importance of non-pharmacologic strategies. - Reinforce the need for follow-up and clear instructions on when to seek urgent care. 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
[2025-01-01] MEDS: HYDROcodone-acetaminophen 7.5-325 mg Tablet 1 TAB PO (13:18)
[2025-01-01 13:24] VITALS: BP 140/87; PULSE 88; RESP 18; O2SAT 98
== END 2025-01-01 13:25 | disposition home or self-care (01) ==
PROVIDERS: Emergency Provider Physician Assistant; PCP Nurse Practitioner Family
DX: G89.28 Other chronic postprocedural pain (principal); Z79.84 Long term (current) use of oral hypoglycemic drugs; Z96.652 Presence of left artificial knee joint
CPT/HCPCS: 96372; 99284; J1100; J1885; J9999

== ENCOUNTER 2025-01-14 05:00 | Outpatient (RCR) | payer OTHER, SELFPAY | END 2025-02-13 23:59 | disposition home or self-care (01) | LOC: SPT 05:00 | PROVIDERS: PCP Nurse Practitioner Family; Visit Provider Orthopaedic Surgery | DX: M25.562 Pain in left knee (principal) | CPT/HCPCS: 97110; 97112; 97116; G0283 ==

== ENCOUNTER 2025-02-12 15:06 | Emergency (ER) | payer OTHER, SELFPAY ==
--- OUTSIDE RECORDS SUMMARY | 2025-02-12 15:09 | XMS_ITS | Clinical Summary ---
Author Organization [facility] Address [address] [facility] [address] Dr[address] 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 Name Role Phone Rupert Morrison MD Primary Care Provider [phone] Allergies Active Allergy Reactions Criticality Noted Date [...] tablet by mouth once daily 30 Tablet 1 01/11/2025 Active Active Problems No known active problems Encounters Date Type Department Care Team Description 01/18/2025 External Device Data ST[facility] ABSTRACTION Provider, Abstract 01/11/2025 Refill [facility] [address] [place] [address] Fred Lopez, AERODYNAMICIST 12/13/2024 Refill [facility] [address] [place] [address] Gardenia Guardado, AERODYNAMICIST 12/07/2024 External Device Data ST[facility] ABSTRACTION Provider, [...] on file Legal Sex Female 9:51 AM TERRAZZO FINISHER Gender Identity Not on file Sexual Orientation [...] CANCER SCREENING 07/30/2024 07/30/2023 INFLUENZA VACCINE (#1) 01/14/202505/03/ 9, 04/15/2008, 04/02/2007, Additional history exists Procedures Procedure Name Priority Date/Time Associated Diagnosis Comments MAMMO 3D GREGORY DIAGNOSTIC BILAT W OR WO CAD Routine 07/30/2023 8:58 AM TERRAZZO FINISHER Mastodynia Pain in left upper arm from Last 3 Months or Most Recently Relevant to Health Maintenance Results * MAMMO 3D GREGORY DIAGNOSTIC BILAT W OR WO CAD (07/30/2023 8:58 AM TERRAZZO FINISHER) Anatomical Region Laterality Modality Breast Bilateral Mammography 07/30/2023 3:05 PM TERRAZZO FINISHER Impressions 07/31/2023 1:18 PM TERRAZZO FINISHER IMPRESSION: 1. No radiographic evidence of malignancy. 2. BI-RADS Category 1. Narrative 07/31/2023 1:18 PM TERRAZZO FINISHER Exam: MAMMO 3D GREGORY DIAGNOSTIC BILAT W OR WO CAD Date/Time of Exam: 07/30/2023 8:58 AM Reason For Exam: See Diagnosis Diagnosis: Mastodynia; Pain in left upper arm This mammogram was also analyzed by the Computer Aided Detection System (CAD), [employer], Version 8.7. 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 [address] [place] [address] PCP - General Family Practice 11/27/10
[2025-02-12 15:12] VITALS: BP 160/78; PULSE 84; RESP 18; TEMP 36.6; O2SAT 96; BMI 47.9
--- NOTE | 2025-02-12 15:25 | XRR_ITS ---
PROCEDURE INFORMATION: Exam: XR Left Knee Exam date and time: 02/12/2025 3:48 PM Age: 59 years old Clinical indication: Pain; Prior surgery; Surgery date: 1-6 months; Surgery type: Left knee; Additional info: Pain, surgery in October TECHNIQUE: Imaging protocol: Radiologic exam of the left knee. Views: 3 views. COMPARISON: CR XR knee LT 3V* [id number] 12/08/2024 4:18 PM FINDINGS: Bones/joints: There is mild patellofemoral osteoarthritic change. No joint effusion is evident. A stable, small phlebolith is suggested ventral to the patellar tendon within the subcutaneous tissues. There is no acute fracture, lytic, or blastic lesion. Soft tissues: Supine AP notch and lateral views were generated. Again seen is medial cartilage joint space narrowing. Small osteophytes border the medial aspect of the medial compartment and lateral margin of the lateral tibial plateau. There is a new corticated calcification seen just inferior to the medial margin of the medial tibial plateau which may reflect loose body in the interstices of the medial collateral ligament secondary to meniscocapsular separation. This could be further assessed with MR imaging. XR/XR knee LT 3V* [id number] IMPRESSION: 1. Persistent medial compartment joint space narrowing. 2. Mild tricompartment osteoarthritis. 3. New small corticated calcification seen just inferior to the medial tibial plateau. This could potentially reflect an osteochondroma within the interstices of the MCL and imply meniscocapsular separation. Consider MR evaluation for full assessment.
[2025-02-12 15:32] VITALS: BP 141/117; PULSE 85; O2SAT 96
--- NOTE | 2025-02-12 15:46 | W.ED.EXTPRO ---
HPI - Extremity Problem General: Chief complaint: Extremity Problem,Nontraumatic Stated complaint: L knee pain burning pain Time Seen by Provider: 02/12/25 15:09 Source: patient Mode of arrival: ambulatory Limitations: no limitations History of Present Illness: Patient is a 59-year-old female who presents to the emergency department complaining of left knee pain for months. She is status post left knee surgery where she had arthroscopic repair of torn cartilage and meniscus on October [address] Adams. She states that she started having fullness sensation in her knee and a burning, which worsened 2 days ago. She has remained ambulatory, denies any fever, nausea/vomiting, or other symptoms of systemic illness. She is currently undergoing physical therapy twice a week, currently rating the pain as 7/10. She takes Motrin and Tylenol for pain at home. Denies any new trauma to the knee, states she does have a history of arthritis but denies history of gout. She states that she is having inability to fully straighten the knee, and has to keep it slightly flexed. She does wear knee brace chronically as well. At this time her vitals are reassuring, she is afebrile and nontachycardic. Appears mildly uncomfortable secondary to the pain, but overall nontoxic-appearing. MD Complaint: joint pain (left knee) Onset (ago): month(s) Pain Consistency: constant Location: left and knee Associated symptoms: Deny chest pain, fever(s) or rash Context: recent surgery/procedure (in October) Related Data Home Medications ?Medication ?Instructions ?Recorded ?Confirmed levothyroxine 100 mcg capsule 100 mcg PO QAM 09/02/19 01/07/25 lisinopril 5 mg tablet 5 mg PO QAM 09/02/19 01/07/25 ezetimibe 10 mg tablet 10 mg PO BEDTIME 01/08/20 01/07/25 cetirizine 10 mg tablet (Zyrtec) 10 mg PO BEDTIME 02/21/20 01/07/25 multivitamin 1 tab PO QAM 12/25/22 01/07/25 primidone 50 mg tablet 50 mg PO BID 04/05/23 01/07/25 antiarthritic combination no.2 900 900 mg PO BID 02/11/24 01/07/25 mg tablet (glucosamine-chondroitin) cyanocobalamin (vitamin B-12) 1,000 mcg PO DAILY 05/30/24 01/07/25 1,000 mcg tablet (Vitamin B-12) magnesium oxide 400 mg PO QAM 05/30/24 01/07/25 meloxicam 7.5 mg tablet 7.5 mg PO DAILY 05/30/24 01/07/25 ondansetron 4 mg disintegrating See Rx Instructions .Route 05/30/24 01/07/25 tablet .COMPLEX PRN Nausea metformin 500 mg tablet mg PO 09/30/24 01/07/25 pioglitazone 15 mg tablet mg PO 09/30/24 01/07/25 prednisone 10 mg tablet mg PO 12/14/24 01/07/25 meloxicam 15 mg tablet mg PO 01/07/25 01/07/25 Previous Rx's ?Medication ?Instructions ?Recorded albuterol sulfate 90 mcg/actuation 1 inh inhalation Q6H PRN shortness 04/05/23 aerosol inhaler (Ventolin HFA) of breath or wheezing #6.7 grams aripiprazole 15 mg tablet 15 mg PO QAM #30 tabs 10/04/24 desvenlafaxine succinate 100 mg 100 mg PO QAM #30 tabs 10/04/24 tablet,extended release 24 hr (Pristiq) methocarbamol 500 mg tablet 500 mg PO Q8H #20 tabs 12/08/24 tramadol 50 mg tablet 50 mg PO Q6H PRN pain #20 tabs 12/08/24 doxepin 25 mg capsule See Rx Instructions .Route 01/11/25 .COMPLEX #60 caps hydroxyzine HCl 25 mg tablet See Rx Instructions .Route 02/08/25 .COMPLEX #60 tabs Allergies Allergy/AdvReac Type Severity Reaction Status Date / Time carisoprodol (From Soma) Allergy Unknown unknown Verified 01/07/25 08:16 rofecoxib (From Vioxx) Allergy Unknown UNKNOWN Verified 01/07/25 08:16 Gycaxmy-GVB-QeO Reductase Allergy Unknown unknown Verified 01/07/25 08:16 Inhibitor (Aesjfln-Uzb-Lho Reductase Inhibitor) sumatriptan (From Imitrex) Allergy Unknown unknown Verified 01/07/25 08:16 Review of Systems General: Reports: 10 or more systems reviewed and unremarkable except in HPI and below Const: Denies: fever(s) or chills Card: Denies: chest pain Resp: Denies: dyspnea or productive cough GI: Denies: abdominal pain, nausea, vomiting or diarrhea : Denies: flank pain Musc: Reports: joint pain (left knee) and limited range of motion (left knee); Denies: neck pain, back pain, extremity pain, extremity swelling, joint swelling, joint redness, joint warmth or muscle weakness Skin/Breast: Denies: rash Neuro: Denies: headache(s), numbness in extremities or weakness in extremities PFSH ED PFSH: Medical History Anticipatory grief Psychiatric care Insomnia BENITO on CPAP Major depressive disorder, recurrent, moderate Surgical History H/O: hysterectomy H/O tubal ligation H/O rotator cuff surgery Family History Sister Ovarian cancer Diabetes Stroke TIA Brother Diabetes Hypertension Mother Diabetes Father Stroke Grandmother Stroke Paternal Other Stomach cancer Denies family history of Colon cancer Heart disease Hyperlipidemia Breast cancer Uterine cancer Thyroid disease Social History Smoking and tobacco/nicotine status: never used tobacco/nicotine Physical Exam Const: COMMON NORMALS: patient oriented x3, no limitations, alert and well nourished GENERAL APPEARANCE: anxious NUTRITIONAL APPEARANCE: obese morbidly obese ORIENTATION/CONSCIOUSNESS: Yes awake HENMT: COMMON NORMALS: normocephalic and atraumatic HEAD & SCALP: normocephalic and atraumatic Neck/C-Spine: COMMON NORMALS: full ROM, supple and no meningeal signs Resp: COMMON NORMALS: normal respiratory effort, No use of accessory muscles and clear to auscultation bilaterally AUSCULTATION: clear to auscultation bilaterally Cardio: COMMON NORMALS: regular rate and regular rhythm RATE: regular rate RHYTHM: regular rhythm Extremity: NARRATIVE EXTREMITY EXAM: Arthroscopic incisions appearing well to the left anterior knee. Diffusely tender to palpation, though this is worse over the medial aspect. Mild tenderness to palpation to the popliteal space. No palpable cord. No obvious unilateral swelling of the left knee compared to the right. No appreciable joint effusion. The distal neurovascular exam is unremarkable, no coolness, pallor, or cyanosis to the left lower extremity. Unable to assess gait. Neuro: COMMON NORMALS: patient oriented x3, moves all extremities, no focal motor deficits and no sensory deficits noted SENSORIUM/ORIENTATION: Yes alert MENINGEAL SIGNS: Yes no meningeal signs Skin: COMMON NORMALS: no rashes or lesions noted GENERAL SKIN EXAM: no rashes or lesions noted Course Vital Signs: Vital signs: Vital Signs Temperature 97.8 F 02/12/25 15:12 Pulse Rate 85 02/12/25 15:32 Respiratory Rate 18 02/12/25 15:12 Blood Pressure 141/117 02/12/25 15:32 Pulse Oximetry 96 02/12/25 15:32 Oxygen Delivery Me thod Room Air 02/12/25 15:32 MDM - Extremity (Nontraumatic) Medical Decision Making Patient presenting with acute on chronic left knee pain, history of arthroscopic surgery in October but states over the past 2 days has felt a burning and pressure sensation in her knee. No concerns for DVT on exam, no evidence of swelling, bruising, or recent trauma. X-ray showing chronic findings but no acute fracture or dislocation. She has upcoming appointment with orthopedics that she is encouraged to keep, she notes relief of pain here from [place]. No acute process that requires further intervention in the ED, and is discharged in stable condition at this time. Lab Data 02/12/25 16:03 Radiology Impressions Knee X-Ray 02/12/25 15:25 IMPRESSION: 1. Persistent medial compartment joint space narrowing. 2. Mild tricompartment osteoarthritis. 3. New small corticated calcification seen just inferior to the medial tibial plateau. This could potentially reflect an osteochondroma within the interstices of the MCL and imply meniscocapsular separation. Consider MR evaluation for full assessment. Laboratory Results WBC 11.96 10^3/uL (3.29-11.43) H 02/12/25 16:03 RBC 4.00 10^6/uL (3.85-5.65) 02/12/25 16:03 Hgb 12.00 g/dL (11.27-16.99) 02/12/25 16:03 Hct 37.0 % (36-47) 02/12/25 16:03 MCV 92.5 fl (85-98) 02/12/25 16:03 MCH 30.0 pg (27-33) 02/12/25 16:03 MCHC 32.4 g/dL (30-55) 02/12/25 16:03 RDW 13.2 % (12.1-15.1) 02/12/25 16:03 Plt Count 296 10^3/cmm (157-399) 02/12/25 16:03 MPV 9.6 fL (7.4-10.4) 02/12/25 16:03 Neut % (Auto) 65.0 % 02/12/25 16:03 Lymph % (Auto) 24.3 % 02/12/25 16:03 Carroll % (Auto) 7.8 % 02/12/25 16:03 Eos % (Auto) 1.9 % 02/12/25 16:03 Baso % (Auto) 0.6 % 02/12/25 16:03 Neut # (Auto) 7.77 10^3/uL (1.8-7.7) H 02/12/25 16:03 Lymph # (Auto) 2.9 10^3/uL (0.8-4.8) 02/12/25 16:03 Carroll # (Auto) 0.9 10^3/uL (0.2-0.9) 02/12/25 16:03 Eos # (Auto) 0.2 10^3/uL (0.0-0.8) 02/12/25 16:03 Baso # (Auto) 0.1 10^3/uL (0.0-0.1) 02/12/25 16:03 Nucleated RBC % (auto) 0 % 02/12/25 16:03 Nucleated RBCs # 0.0 /100WBC 02/12/25 16:03 ESR 12 mm/hr (0-15) 02/12/25 16:03 C-Reactive Protein 9.4 mg/L (0.0-4.9) H 02/12/25 16:03 All radiology interpretation(s) finalized by discharge Discharge Plan Discharge Patient Disposition: Home Clinical Impression: Chronic pain of left knee Condition: Stable Prescriptions: No Action ezetimibe 10 mg tablet 10 mg PO BEDTIME levothyroxine 100 mcg capsule 100 mcg PO QAM lisinopril 5 mg tablet 5 mg PO QAM glucosamine-chondroitin 900 mg tablet 900 mg PO BID aripiprazole 15 mg tablet 15 mg PO QAM Qty: 30 5RF desvenlafaxine succinate [Pristiq] 100 mg tablet extended release 24 hr 100 mg PO QAM Qty: 30 5RF pioglitazone 15 mg tablet PO metformin 500 mg tablet PO prednisone 10 mg tablet PO meloxicam 15 mg tablet PO doxepin 25 mg capsule See Rx Instructions .ROUTE .COMPLEX Qty: 60 0RF Dose Instruction: TAKE 1 TO 2 CAPSULES BY MOUTH ONCE DAILY AT BEDTIME Rx Instructions: TAKE 1 TO 2 CAPSULES BY MOUTH ONCE DAILY AT BEDTIME hydroxyzine HCl 25 mg tablet See Rx Instructions .ROUTE .COMPLEX Qty: 60 0RF Dose Instruction: TAKE 1 TABLET BY MOUTH TWICE DAILY NEEDED FOR ANXIETY OR SLEEP Rx Instructions: TAKE 1 TABLET BY MOUTH TWICE DAILY NEEDED FOR ANXIETY OR SLEEP cetirizine [Zyrtec] 10 mg Tablet 10 mg PO BEDTIME multivitamin Tablet 1 tab PO QAM primidone 50 mg tablet 50 mg PO BID albuterol sulfate [Ventolin HFA] 90 mcg/actuation HFA aerosol inhaler 1 inh inhalation Q6H PRN (Reason: shortness of breath or wheezing) Qty: 6.7 0RF cyanocobalamin (vitamin B-12) [Vitamin B-12] 1,000 mcg Tablet 1,000 mcg PO DAILY meloxicam 7.5 mg tablet 7.5 mg PO DAILY ondansetron 4 mg tablet,disintegrating See Rx Instructions .ROUTE .COMPLEX PRN (Reason: Nausea) Rx Instructions: PLACE 1 TABLET BY TRANSLINGUAL ROUTE EVERY 8 HOURS ON TOP OF THE TONGUE WHERE IT WILL DISSOLVE , THEN SWALLOW NEEDED FOR NAUSEA. magnesium oxide 400 mg magnesium Tablet 400 mg PO QAM tramadol 50 mg tablet 50 mg PO Q6H PRN (Reason: pain) Qty: 20 0RF methocarbamol 500 mg tablet 500 mg PO Q8H Qty: 20 0RF Discharge Orders: Discharge ED (Routine); Ordered 02/12/25 Ordered By: Remi Can Referrals: Villa Adrian FNP [Primary Care Provider] Patient Instructions: Patient Portal & Raheel Instructions Activity Restrictions/Additional Instructions: Chronic Knee Pain Discharge Discharge Instructions: Chronic Left Knee Pain Diagnosis and Current Status: 59-year-old female with chronic left knee pain. Radiographs demonstrate chronic changes without acute pathology. Laboratory evaluation excludes infectious etiology. Orthopedic follow-up is scheduled for further assessment and consideration of MRI. Patient Education and Self-Management: - Chronic knee pain in adults over 45 is most commonly due to osteoarthritis, but other etiologies (e.g., degenerative meniscal tear, patellofemoral pain) may contribute. - Education regarding the nature of chronic knee pain and self-management strategies is associated with reduced pain and improved function. First-Line Conservative Management: - Exercise Therapy: - Initiate or continue a structured exercise program focusing on low-impact aerobic activities (e.g., walking, cycling, aquatic exercise), quadriceps and hip strengthening, and flexibility. - Supervised physical therapy is recommended for personalized exercise prescription and progression, but unsupervised programs are also effective. - At least 12 supervised sessions (twice weekly) may be required for optimal benefit. - Exercise does not accelerate joint damage and is safe in older adults with chronic knee pain. - Weight Management: - If overweight (BMI >25 kg/m?), gradual weight loss (5?10%) is strongly recommended, as it reduces pain and improves function. - Combined diet and exercise interventions are more effective than either alone. - Activity Modification: - Maintain regular physical activity and avoid prolonged sedentary periods. - Modify activities that exacerbate pain, but avoid complete rest. Pharmacologic Therapy: - Topical NSAIDs are preferred for pain control due to favorable safety profile. - If topical agents are ineffective or impractical, consider oral NSAIDs with gastroprotection (e.g., proton pump inhibitor) or KENT-2 inhibitor, as needed. - Acetaminophen may be used, but topical NSAIDs provide superior functional improvement. - Opioids are not recommended except in refractory cases where all other options have failed. - Glucosamine/chondroitin supplementation is not recommended. Adjunctive Measures: - Soft knee braces may provide additional pain relief when combined with exercise therapy. - Foot orthoses may be considered for anterior knee pain. - Patellar taping and neuromuscular training can be adjuncts for patellofemoral pain. Interventional Therapies: - Corticosteroid injections may offer short-term relief in osteoarthritis. - Hyaluronic acid injections are not routinely recommended due to inconsistent benefit. - Regenerative injections (e.g., PRP) have limited evidence and are not first-line. Follow-Up and Red Flags: - Attend scheduled orthopedic appointment for reevaluation and consideration of MRI, especially if mechanical symptoms (locking, catching) or functional decline are present. - Seek prompt medical attention for new or worsening symptoms, including acute swelling, erythema, fever, or inability to bear weight. Summary: Conservative management?centered on exercise, education, and weight loss?is the foundation of chronic knee pain treatment. Pharmacologic and adjunctive therapies may be added as needed. Ongoing follow-up is essential to monitor progress and adjust management. Print Language: Wolof Coding Level of Care Code ED Cribber for Kerri Celis
[2025-02-12] MEDS: HYDROcodone-acetaminophen 7.5-325 mg Tablet 1 TAB PO (15:49)
[2025-02-12 16:07] LABS: Hematocrit 37.0 % (36-47); Hemoglobin 12.00 g/dL (11.27-16.99); Mean Corpuscular HGB Conc 32.4 g/dL (30-55); Mean Corpuscular Hemoglobin 30.0 pg (27-33); Mean Corpuscular Volume 92.5 fl (85-98); Nucleated Red Blood Cells % 0 %; Platelet Count 296 10^3/cmm (157-399); Red Blood Count 4.00 10^6/uL (3.85-5.65); White Blood Count 11.96 10^3/uL (3.29-11.43)
[2025-02-12] MEDS: HYDROcodone-acetaminophen 7.5-325 mg Tablet 2 TAB PO (17:15)
[2025-02-12 17:22] VITALS: PULSE 84; O2SAT 96
== END 2025-02-12 17:24 | disposition home or self-care (01) ==
PROVIDERS: Emergency Provider Physician Assistant; PCP Nurse Practitioner Family
DX: M25.562 Pain in left knee (principal)
CPT/HCPCS: 36415; 73562; 85025; 85651; 86140; 96372; 99284; J1100; J9999

== ENCOUNTER 2025-02-14 05:00 | Outpatient (RCR) | payer OTHER, SELFPAY | END 2025-03-15 23:59 | disposition home or self-care (01) | LOC: SPT 05:00 | PROVIDERS: PCP Nurse Practitioner Family; Visit Provider Orthopaedic Surgery | DX: M25.562 Pain in left knee (principal) | CPT/HCPCS: 97110; G0283 ==